=== PATIENT | female | born 1970 | race African-American/Black ===

== ENCOUNTER 2019-10-26 19:34 | Emergency (ER) | payer OTHER, SELFPAY ==
[2019-10-26 19:40] VITALS: BP 98/43; PULSE 81; RESP 18; TEMP 36.1; O2SAT 100
--- NOTE | 2019-10-26 19:42 | ECG_ITS ---
Measurements Intervals [place] Rate: 83 P: 52 RI: 174 QRS: 11 QRSD: 83 T: 31 QT: 352 QTc: 414 Interpretive Statements SINUS RHYTHM BASELINE ARTIFACT- II, III, AVF NORMAL ECG Electronically Signed On 10-27-2019 15:44:40 [employer] by Maynor Quiroz D.O.
--- NOTE | 2019-10-26 19:42 | ED.GENADULT ---
HPI - General Adult General Chief complaint: Unspecified Stated complaint: High blood pressure Time Seen by Provider: 10/26/19 19:42 Source: patient Mode of arrival: ambulatory Limitations: no limitations History of Present Illness HPI narrative: Gay Oconnell is a 49 yo female with a PMH of MARAH, insomnia, who comes to express care for change in voice, chest heaviness and shortness of breath earlier this evening, although appears to be in no distress presently. Patient was at a pharmacy and they recommended she come over here to be evaluated Historically patient looks like she is on multiple anti-psychotic medications Related Data Home Medications Medication Instructions Recorded Confirmed clonazepam 10/26/19 doxepin 10/26/19 suvorexant [Belsomra] mg PO 10/26/19 triazolam 10/26/19 venlafaxine mg PO 10/26/19 Allergies Allergy/AdvReac Type Severity Reaction Status Date / Time No Known Allergies Allergy Unverified 12/11/17 18:06 Review of Systems Review of Systems: Narrative: CONSTITUTIONAL: Denies fever, chills, sweats. EYES: Denies visual changes, redness, discharge. ENT: Denies rhinorrhea, congestion, sore throat, otalgia. Change in voice CARDIOVASCULAR: Denies chest pain, palpitations, edema. RESPIRATORY: Denies dyspnea, wheezing, cough GASTROINTESTINAL: Denies abdominal pain, nausea, vomiting, diarrhea. GENITOURINARY: Denies dysuria, hematuria, abnormal discharge SKIN: Denies rash or itching. MUSCULOSKELETAL: Denies acute back pain, joint pain, or myalgia. NEUROLOGIC: Denies numbness, or focal weakness. PSYCHIATRIC: Has anxiety,no depression. Complaining of being under a lot of stress PMFSH Social History Social History (Updated 10/26/19 @ 19:47 by Taylor Andrews CNP) Smoking status: Current every day smoker Living arrangements: with family Exam Narrative: Exam Narrative: GENERAL: This is a well-nourished, well-developed patient, vague complaints HEAD: normocephalic, atraumatic. EYES: Mild remission sclera clear/white. Vision is grossly intact. EARS: External ears normal, auditory canals clear and without drainage, TMs normal without perforation. Hearing grossly intact. NOSE: External nose normal with no obvious nasal discharge, nares without redness, no rhinorrhea. THROAT: Mucous membranes moist, posterior pharynx clear. Voice is high-pitched- stressed out this t non-Neck: tender without lymphadenopathy, masses or thyromegaly. CARDIOVASCULAR: Regular rate and rhythm without murmurs, gallops, or rubs. RESPIRATORY: Clear to auscultation. Breath sounds equal bilaterally. No wheezes, rales, or rhonchi. GASTROINTESTINAL: Abdomen soft, non-tender, nondistended. SKIN: warm, intact with no suspicious lesions or rash, good texture and turgor. NEURO: awake, alert, and oriented to person, place and time. There were no obvious focal neurologic abnormalities. Steady gait Grossly negative cranial nerves, 5/5 strength all extrenities, good coordination on rapid finger movement EXTREMITIES: Normal range of motion. No edema. BACK: Nontender without deformity or crepitance. Course Course Emergency Course: EKG: Heart rate 83, no axis deviation, NSR Recheck of BP- 157/104- pt angry asked about psych meds Discussed options with pt - pt upset , normal neuro exam- if symptoms recur, to go to ER - follow up with pcp in AM Pt left prior to receiving discharge papers, upset about discussion on psych meds and her voice change- left with sister Vital Signs Vital signs: Vital Signs Temperature 97.0 F L 10/26/19 19:40 Pulse Rate 81 10/26/19 19:40 Respiratory Rate 18 10/26/19 19:40 Blood Pressure 98/43 L 10/26/19 19:40 Pulse Oximetry 100 10/26/19 19:40 Temperature 97.0 F L 10/26/19 19:40 Pulse Rate 81 10/26/19 19:40 Respiratory Rate 18 10/26/19 19:40 Blood Pressure 98/43 L 10/26/19 19:40 Pulse Oximetry 100 10/26/19 19:40 Medical Decision Making Differential
[2019-10-26 19:55] VITALS: BP 157/104; RESP 18; O2SAT 100
== END 2019-10-26 19:55 | disposition home or self-care (01) ==
PROVIDERS: Emergency Provider Nurse Practitioner
DX: F41.9 Anxiety disorder, unspecified (principal); G47.33 Obstructive sleep apnea (adult) (pediatric)
CPT/HCPCS: 93005; 99213; G0463

== ENCOUNTER 2020-01-16 14:56 | Emergency (ER) | payer OTHER, MEDICAID, SELFPAY ==
[2020-01-16 15:03] VITALS: BP 146/97; PULSE 98; RESP 20; TEMP 36.7; O2SAT 100
--- NOTE | 2020-01-16 15:30 | ED.ANXIETY ---
HPI - Anxiety General Chief Complaint: Anxiety Stated Complaint: Haven't slept since june, anxiety Time Seen by Provider: 01/16/20 14:57 Source: patient and family Mode of arrival: ambulatory Limitations: no limitations History of Present Illness HPI narrative: Patient is a 49-year-old female who presents to emergency department noting that she suffers from chronic insomnia and that her medications have not been working has seen a sleep specialist at [facility] and primary care. Patient is scheduled to see neurology at [facility] in February. Patient presents with her son noting history of chronic insomnia patient notes that she is taking melatonin and other medications for insomnia with no improvement with minimal sleep off and on over the last several months. Patient denies any suicidal homicidal ideation. On arrival patient denies any pain or recent illness Related Data Home Medications Medication Instructions Recorded Confirmed clonazepam 10/26/19 doxepin 10/26/19 suvorexant [Belsomra] mg PO 10/26/19 triazolam 10/26/19 venlafaxine mg PO 10/26/19 Allergies Allergy/AdvReac Type Severity Reaction Status Date / Time No Known Allergies Allergy Verified 01/16/20 15:12 Review of Systems Review of Systems: All systems reviewed & are unremarkable except as noted in HPI and below PMFSH Past Medical History Medical History (Updated 01/16/20 @ 18:02 by Miguel Us PA-C) Anxiety Insomnia MARAH (obstructive sleep apnea) Social History Social History Smoking status: Current every day smoker Gender identity (if verbalized by the patient): Female Exam Narrative: Exam Narrative: GENERAL: Well-appearing, well-nourished, and in no acute distress. HEAD: Normocephalic, atraumatic. EYES: PERRLA and EOMI. ENT: Nares clear, no rhinorrhea or epistaxis. Mucous membranes moist. CHEST: Clear to auscultation. No respiratory distress. No wheezes rales or rhonchi HEART: Regular rate and rhythm. No murmur heard. EXTREMITIES: Normal range of motion. No edema. SKIN: Warm, dry, no rash. NEURO: No focal deficits. Alert and oriented x3. Cranial nerves II through XII grossly intact PSYCH: Patient acutely anxious Course Course Emergency Course: Patient in the room at this time felt better after Ativan and will follow with primary care is aware of discussions with primary care. Consultations Consultation #1: Discussed case with primary care on 2 occasions who will follow the patient is okay with the patient having a few doses of Ativan to go home with and will follow patient in clinic Date: 01/16/20 Time: 18:00 Vital Signs Vital signs: Vital Signs Temperature 98.1 F 01/16/20 15:03 Pulse Rate 98 01/16/20 15:03 Respiratory Rate 20 01/16/20 15:03 Blood Pressure 146/97 H 01/16/20 15:03 Pulse Oximetry 100 01/16/20 15:03 Temperature 98.1 F 01/16/20 15:03 Pulse Rate 98 01/16/20 15:03 Respiratory Rate 20 01/16/20 15:03 Blood Pressure 146/97 H 01/16/20 15:03 Pulse Oximetry 100 01/16/20 15:03 MDM - Anxiety MDM Narrative Medical decision making narrative: Patient with longstanding history of schizophrenia and medication noncompliance family and patient were offered psych evaluation by crisis but have refused. Patient is in the room in no distress with no high risk changes in the blood work was given Ativan and fluids in the emergency department will be discharged home with family who is comfortable with the patient and will continue to follow with their referrals. Patient provided with reasons to return as well and noted improvement with medication Lab Data Result diagrams: 01/16/20 15:29 01/16/20 15:29 Labs: Lab Results 01/16/20 01/16/20 01/16/20 Range/Units 15:29 15:29 15:29 WBC 7.8 (4.5-10.0) K/mm3 RBC 4.58 (4.2-5.4) M/mm3 Hgb 13.3 (12.0-15.0) g/dL Hct 39.3 (37.0-4
[2020-01-16 15:36] LABS: Basophils Percent Auto 0.1 % (0.2-1.2); Eosinophils Absolute Auto 0.1 K/mm3 (0-0.3); Eosinophils Percent Auto 0.6 % (0-4.4); Hematocrit 39.3 % (37.0-47.0); Hemoglobin 13.3 g/dL (12.0-15.0); Immature Granulocyte Absolute 0.01 K/mm3 (0.00-0.031); Immature Granulocyte Percent A 0.1 % (0-0.5); Lymphocytes Absolute Auto 2.49 K/mm3 (0.9-3.2); Mean Corpuscular HGB Conc 33.8 g/dl (32-36); Mean Corpuscular Volume 85.8 fl (80-100); Mean Platelet Volume 8.9 fl (7.4-10.4); Monocytes Absolute Auto 0.6 K/mm3 (0.1-0.6); Monocytes Percent Auto 7.4 % (2.6-8.5); Neutrophils Absolute Auto 4.7 K/mm3 (1.3-6.7); Neutrophils Percent Auto 59.8 % (45.5-73.1); Platelet Count Result 268 k/mm3 (150-375); Red Blood Count 4.58 M/mm3 (4.2-5.4); Red Cell Distribution Width 13.1 % (11.5-14.5); White Blood Count 7.8 K/mm3 (4.5-10.0)
[2020-01-16] MEDS: SODIUM CHLORIDE 0.9% IV 1,000 ML 999 ML IV CONT (15:43)
[2020-01-16] MEDS: LORAZEPAM INJ 2 MG/ML VIAL 1 MG IV PUSH (15:44)
[2020-01-16 15:48] LABS: Blood Urea Nitrogen 7 mg/dL (7-17); Calcium 9.8 mg/dL (8.4-10.2); Carbon Dioxide 26 mmol/L (22-30); Chloride 106 mmol/L (98-107); Estimated CRCL calculation 79 ml/min; Estimated Glomerular Filt Rate > 60; Glucose 108 mg/dL (65-105); Potassium 3.9 mmol/L (3.4-5.0); Sodium 142 mmol/L (137-145)
--- NOTE | 2020-01-16 15:59 | PC.NURSE ---
added on labs at 1553
[2020-01-16 16:10] LABS: Ethanol < 10 mg/dL (<10)
[2020-01-16 16:12] LABS: Amphetamine Screen Urine Negative (Negative); Barbiturate Screen Urine Negative (Negative); Benzodiazepines Screen Urine Negative (Negative); Cannabinoid Screen Urine Negative (Negative); Cocaine Screen Urine Negative (Negative); Methadone Screen Urine Negative (Negative); Opiate Screen Urine Negative (Negative); Phencyclidine Screen Urine Negative (Negative)
[2020-01-16 16:59] LABS: Add Urine Microscopic? YES; Appearance Urine Cloudy (Clear); Bacteria Urine 4+ /hpf; Bilirubin Urine 2+ (Negative); Blood Urine Negative (Negative); Color Urine Yellow (Yellow); Glucose Urine UA Negative (Negative); Ketones Urine Trace mg/dL (Negative); Leukocyte Esterase Ur Trace LEU/UL (Negative); Mucus Urine Heavy /lpf; Nitrate Urine Negative (Negative); Protein Urine 1+ mg/dL (Negative); Specific Grav Ur 1.025 (1.001-1.035); Squamous Epithelial Cell Urine Many /hpf (Few)
[2020-01-16 18:12] VITALS: BP 118/75; PULSE 78; RESP 18; O2SAT 100
== END 2020-01-16 18:13 | disposition home or self-care (01) ==
PROVIDERS: Emergency Medicine Emergency Medical Services; Emergency Provider Emergency Medicine; PCP Nurse Practitioner Family
DX: G47.00 Insomnia, unspecified (principal); G47.33 Obstructive sleep apnea (adult) (pediatric); F17.200 Nicotine dependence, unspecified, uncomplicated; F20.9 Schizophrenia, unspecified; Z91.14 Patient's other noncompliance with medication regimen
CPT/HCPCS: 36415; 80048; 80307; 81001; 84443; 85025; 87086; 96361; 96374; 99284; J2060; J7030

== ENCOUNTER 2020-07-15 06:35 | Outpatient (CLI) | payer OTHER, SELFPAY ==
--- NOTE | 2020-07-15 11:30 | WPDNEUROLOGY ---
Neurology EEG Report General Information Date of Study: 07/15/20 TEST eeg DIAGNOSIS chronic insomnia CONDITION OF RECORDING awake and drowsy EEG NUMBER [id number] CLINICAL HISTORY patient reported that she has chronic insomnia going on since 2011. EEG DESCRIPTION Basic resting occipital frequency consists of low to medium voltage 8 to 9 hertz per second alpha admixed with low-voltage 15 to 18 hertz per second beta beta. During drowsiness low-voltage beta activity seen diffusely admixed with waxing and waning posterior alpha rhythm .intermittent muscle artifactsare seen throughout the tracing , no sleep activity seen. non paroxysmal. nonfocal nonlateralizing. IMPRESSION no significant abnormalities noted
== END 2020-07-15 06:36 | disposition home or self-care (01) ==
PROVIDERS: PCP Family Medicine; Visit Provider Family Medicine
DX: F51.04 Psychophysiologic insomnia (principal)
CPT/HCPCS: 95816

== ENCOUNTER 2020-09-03 06:56 | Outpatient (NON) | payer OTHER, SELFPAY ==
[2020-09-03 18:19] LABS: SARS-CoV-2 RNA PCR Negative
== END 2020-09-03 06:57 ==
LOC: ANHCOVIDDT 07:07
PROVIDERS: PCP Family Medicine; Visit Provider Family Medicine
DX: R68.89 Other general symptoms and signs (principal); Z20.828 Contact with and (suspected) exposure to other viral communicable diseases
CPT/HCPCS: 87635; C9803; U0003

== ENCOUNTER 2021-01-10 14:20 | Emergency (ER) | payer OTHER, SELFPAY ==
[2021-01-10 14:25] VITALS: BP 138/84; PULSE 69; RESP 20; TEMP 36.5; O2SAT 100
--- NOTE | 2021-01-10 15:34 | ED.GENADULT ---
HPI - General Adult General Chief complaint: Unspecified Stated complaint: blurred vision, tingling to hands, and swelling an Time Seen by Provider: 01/10/21 15:34 History of Present Illness HPI narrative: 50 yo female w/ h/o neuropathy of the lower extremities presents with leg pain. She repoorts that she was diagnosed with neuropathy 2 years ago. She has recently had worsening of her symptoms. In addition she says that she now has tingling in her hands bilaterally. She called her PCP and they were not able to get her in. They told her to come get checked for diabetes. No fever, chills, nausea, vomiting, polyuria. Glucose is 87. Related Data Home Medications Medication Instructions Recorded Confirmed clonazepam 10/26/19 doxepin 10/26/19 suvorexant [Belsomra] mg PO 10/26/19 triazolam 10/26/19 venlafaxine mg PO 10/26/19 Allergies Allergy/AdvReac Type Severity Reaction Status Date / Time No Known Allergies Allergy Verified 01/16/20 15:12 Review of Systems Review of Systems: All systems reviewed & are unremarkable except as noted in HPI and below Constitutional: Constitutional: Denies chills and Denies fever(s) Eyes: Eyes: Reports blurry vision ENT: Reports system reviewed and no additional complaints, except as documented Cardiovascular: Cardiovascular: Denies chest pain Respiratory: Respiratory: Denies dyspnea Gastrointestinal: Gastrointestinal: Denies abdominal pain and Denies nausea Genitourinary: Genitourinary: Reports as per HPI Neurologic: Reports as per HPI [facility] Past Medical History Medical History Anxiety Insomnia MARAH (obstructive sleep apnea) Social History Social History Smoking status: Current every day smoker Gender identity (if verbalized by the patient): Female Exam Const: General: healthy appearing, no acute distress and alert Orientation/consciousness: patient oriented x3 HENMT: Head: normal to inspection Neck: Neck: normal visual inspection and no lymphadenopathy Resp: Effort & Inspection: normal respiratory effort Auscultation: clear to auscultation bilaterally, no rales, no rhonchi and no wheezes Cardio: Jugular venous distension: no JVD Rate: regular rate Rhythm: regular rhythm Heart sounds: no murmurs GI: Inspection: non-distended GI Palp: Yes Soft to palpation and No Tenderness to palpation present (GI) Skin: General skin exam: normal color Neuro: General: patient oriented x3 and moves all extremities Speech: normal speech Sensory Exam: Abnormal lower extremity sensory exam (reports pins and needle sensation bilaterally. ) Extrem: General: normal to inspection and no edema Psych: Appearance: well kempt Affect: normal affect Course Vital Signs Vital signs: Vital Signs Temperature 36.5 C 01/10/21 14:25 Pulse Rate 69 01/10/21 14:25 Respiratory Rate 20 01/10/21 14:25 Blood Pressure 138/84 01/10/21 14:25 Pulse Oximetry 100 01/10/21 14:25 Temperature 36.5 C 01/10/21 14:25 Pulse Rate 72 01/10/21 18:09 Respiratory Rate 16 01/10/21 18:09 Blood Pressure 118/75 01/10/21 18:09 Pulse Oximetry 99 01/10/21 18:09 Medical Decision Making [facility] Narrative Medical decision making narrative: Her normal glucose all but rules out diabetes as a possibility. B12 level normal. No objective findings on exam. Symptoms are nonfocal. She will likely need an outpatient nerve conduction study to comfirm the diagnosis and further look for possible causes. Differential Diagnosis Differential Diagnosis: DDx: neuropathy, DM, B12 deficiency, other Medical Records Medical records reviewed: Yes I reviewed the external patient's medical records. Vital Signs Vital Signs: Vital Signs Temperature 36.5 C 01/10/21 14:25 Pulse Rate 69 01/10/21 14:25 Respiratory Rate 20 01/10/21 14:25 Blood Pressure 138/84 01/10/21
--- NOTE | 2021-01-10 15:38 | PC.NURSE ---
Arrives via triage, x1 day worsening neuropathy can hardly walk , +LLE +1 pitting edema (denies trauma, denies hx blood clots, denies SOB). Has been on meloxicam x1 year for neuropathy , unsure if she is diabetic. Called per PCP today who recommended coming to ED for eval. Also c/o headaches and blurred vision
[2021-01-10 15:45] LABS: Glucose Point of Care 87 (65-105)
--- NOTE | 2021-01-10 16:09 | PC.NURSE ---
Pt ambulated steady gait to BR, slight limp noted on L side
[2021-01-10 16:38] LABS: Basophils Percent Auto 0.2 % (0.2-1.2); Eosinophils Absolute Auto 0.1 K/mm3 (0-0.3); Hematocrit 34.1 % (37.0-47.0); Hemoglobin 11.3 g/dL (12.0-15.0); Immature Granulocyte Absolute 0.01 K/mm3 (0.00-0.031); Immature Granulocyte Percent A 0.2 % (0-0.5); Lymphocytes Absolute Auto 2.06 K/mm3 (0.9-3.2); Mean Corpuscular HGB Conc 33.1 g/dl (32-36); Mean Corpuscular Hemoglobin 28.9 pg (26-34); Mean Corpuscular Volume 87.2 fl (80-100); Mean Platelet Volume 9.1 fl (7.4-10.4); Monocytes Absolute Auto 0.4 K/mm3 (0.1-0.6); Monocytes Percent Auto 8.2 % (2.6-8.5); Neutrophils Absolute Auto 2.4 K/mm3 (1.3-6.7); Neutrophils Percent Auto 48.4 % (45.5-73.1); Platelet Count Result 201 k/mm3 (150-375); Red Blood Count 3.91 M/mm3 (4.2-5.4); Red Cell Distribution Width 12.6 % (11.5-14.5)
[2021-01-10] MEDS: KETOROLAC (*BKC) 60 MG/2 ML VIAL IM (16:43)
[2021-01-10 16:50] LABS: Anion Gap 4 mmol/L (8-16); Blood Urea Nitrogen 15 mg/dL (7-17); Calcium 9.1 mg/dL (8.4-10.2); Carbon Dioxide 32 mmol/L (22-30); Chloride 104 mmol/L (98-107); Estimated CRCL calculation 72 ml/min; Estimated Glomerular Filt Rate > 60; Glucose 88 mg/dL (65-105); Potassium 4.4 mmol/L (3.4-5.0); Sodium 140 mmol/L (137-145)
[2021-01-10 17:55] LABS: Folic Acid 11.8 ng/mL (2.76->20)
[2021-01-10 18:09] VITALS: BP 118/75; PULSE 72; RESP 16; O2SAT 99
== END 2021-01-10 18:10 | disposition home or self-care (01) ==
PROVIDERS: Emergency Provider Emergency Medicine; PCP Family Medicine
DX: G62.9 Polyneuropathy, unspecified (principal); F41.9 Anxiety disorder, unspecified; G47.33 Obstructive sleep apnea (adult) (pediatric); F17.200 Nicotine dependence, unspecified, uncomplicated
CPT/HCPCS: 36415; 80048; 82607; 82746; 82948; 85025; 96372; 99283; J1885

== ENCOUNTER → 2021-02-05 06:44 | Outpatient (CLI) | payer OTHER, SELFPAY ==
[2021-02-06 17:40] LABS: SARS-CoV-2 RNA PCR Negative
== END ==
PROVIDERS: PCP Family Medicine; Visit Provider Family Medicine
DX: R68.89 Other general symptoms and signs (principal); Z20.822 Contact with and (suspected) exposure to COVID-19
CPT/HCPCS: C9803; U0003; U0005

== ENCOUNTER 2023-06-28 01:50 | Day surgery (SDC) | payer OTHER, SELFPAY ==
[2023-06-16 12:44] VITALS: BMI 40.6
[2023-06-28 10:18] VITALS: BP 158/86; PULSE 70; RESP 18; TEMP 36.2; O2SAT 100
[2023-06-28] MEDS: LACTATED RINGERS 1,000 ML 150 ML IV CONT (10:31)
--- NOTE | 2023-06-28 10:34 | P.PNAN_ITS ---
Anes - Initial Pre Proc Eval Procedure: Operation Date: 06/28/23 11:30 Proposed Procedures p Screening Colonoscopy - Vivek Stafford MD Date/Time: 06/28/23 10:34 Surgeon: Vivek Stafford MD Pre Op Diagnosis: Neoplasm screening Patient Data Age: 53 Gender: F Height: 1.6 m Weight: 103.4 kg Last Vital Signs Temp 97.1 F L 06/28/23 10:18 Pulse 70 06/28/23 10:18 Resp 18 06/28/23 10:18 BP 158/86 H 06/28/23 10:18 Pulse Ox 100 06/28/23 10:18 O2 Del Method Room Air 06/28/23 10:18 Allergies Allergy/AdvReac Type Severity Reaction Status Date / Time No Known Allergies Allergy Verified 06/28/23 10:15 Home Medications Medication Instructions Recorded Confirmed Type paroxetine HCl 20 mg tablet (Paxil) 20 mg PO DAILY 05/11/23 06/16/23 History zolpidem 10 mg tablet (Ambien) 10 mg PO QHS 05/11/23 06/16/23 History Patient hx anesthesia problems: none Family hx anesthesia problems: none Results Review: All pre-operative results and documents have been reviewed as part of the pre- operative evaluation. REPLACED BY [facility] Past Medical History Medical History (Updated 05/11/23 @ 12:12 by Zayra Vallecillo APN-Mikel) Anxiety Encounter for screening colonoscopy Insomnia Obese MARAH (obstructive sleep apnea) Tobacco abuse Social History Social History Smoking status: Current every day smoker Living arrangements: with family Gender identity (if verbalized by the patient): Female Anes - Eval Final PreProcedure Day of Procedure 06/28/23 10:34 Patient weight: morbidly obese Heart: regular rate and rhythm Lungs: clear to auscultation Airway: Mallampati scale class II Neurological: alert and oriented Last oral intake: >/= 8 hours ASA classification: III Emergent: no Anesthetic plan: proceed Anesthesia type and monitoring: general GIVS and standard monitoring Results Review: All pre-operative results and documents have been reviewed as part of the pre- operative evaluation. Informed Consent: The patient's anesthetic plan and its attendant risks and benefits were discussed with the patient/family/POA. Questions were solicited and answers provided to the satisfaction of the patient/family/POA.
--- NOTE | 2023-06-28 10:34 | PM.HPGS ---
History of Present Illness History of Present Illness Consent: Risks, benefits, and alternatives have been discussed and questions answered. Patient agrees to proceed with procedure. Chief complaint: Neoplasm screening Narrative: Gay Oconnell is a 53 year old female here for first screening colonoscopy Review of Systems Constitutional: Constitutional: Denies headache(s) and Denies weakness Eyes: Eyes: Denies blurry vision ENT: Reports Normal hearing present, Denies headache(s) and Denies neck pain Cardiovascular: Cardiovascular: Denies chest pain and Denies dyspnea Respiratory: Respiratory: Denies dyspnea Gastrointestinal: Gastrointestinal: Reports no additional gastrointestinal complaints Genitourinary: Genitourinary: Denies dysuria Musculoskeletal: Musculoskeletal: Denies neck pain Integumentary/Breasts: Skin/Breast: Denies dry skin Neurologic: Reports Normal hearing present, Denies headache(s) and Denies weakness Psychiatric: Psychiatric: Denies anxiety Endocrine: Endocrine: Denies change in body appearance Hematologic/Lymphatic: Hematologic/Lymphatic: Denies easy bleeding Allergic/Immunologic: Allergic/Immunologic: Denies urticaria PMFSH Past Medical History Medical History (Updated 05/11/23 @ 12:12 by TIMUR FreedmanN-Mikel) Anxiety Encounter for screening colonoscopy Insomnia Obese MARAH (obstructive sleep apnea) Tobacco abuse Social History Social History Smoking status: Current every day smoker Living arrangements: with family Gender identity (if verbalized by the patient): Female Meds Home Medications and Allergies Home Medications Medication Instructions Recorded Confirmed Type paroxetine HCl 20 mg tablet (Paxil) 20 mg PO DAILY 05/11/23 06/16/23 History zolpidem 10 mg tablet (Ambien) 10 mg PO QHS 05/11/23 06/16/23 History Allergies Allergy/AdvReac Type Severity Reaction Status Date / Time No Known Allergies Allergy Verified 06/28/23 10:15 Vital Signs Vital Signs - 24 hr 06/28/23 10:18 Temperature 97.1 F L Pulse Rate 70 Respiratory Rate 18 Blood Pressure 158/86 H Pulse Oximetry 100 Oxygen Delivery Room Air Exam Const: General: comfortable and no acute distress HENMT: Face/Nose/Sinus: Normal nares present Eyes: General: appearance normal, both eyes and all related structures Neck: Neck: no JVD Resp: Auscultation: clear to auscultation bilaterally Cardio: Rate: regular rate Rhythm: regular rhythm GI: Inspection: non-distended GI Palp: Yes Soft to palpation Skin: General skin exam: normal color Neuro: General: gait normal Speech: normal speech Extrem: General: normal to inspection Psych: Mental Status: mental status grossly normal Assessment and Plan Assessment and plan (1) Encounter for screening colonoscopy: Code(s): Z12.11 - Encounter for screening for malignant neoplasm of colon Status: Acute Assessment and Plan: colonoscopy
[2023-06-28 11:03] VITALS: BP 113/75; PULSE 82; RESP 23; O2SAT 100
[2023-06-28 11:13] VITALS: BP 121/75; PULSE 80; RESP 23; O2SAT 100
== END 2023-06-28 11:34 | disposition home or self-care (01) ==
PROVIDERS: Visit Provider Internal Medicine Gastroenterology
PROC: 0DJD8ZZ Inspection of Lower Intestinal Tract, Via Natural or Artificial Opening Endoscopic (ICD-10-PCS; CPT 45378; principal; 2023-06-28 11:30)
DX: Z12.11 Encounter for screening for malignant neoplasm of colon (principal); K63.5 Polyp of colon; G47.33 Obstructive sleep apnea (adult) (pediatric); F41.9 Anxiety disorder, unspecified; F17.200 Nicotine dependence, unspecified, uncomplicated; E66.01 Morbid (severe) obesity due to excess calories; Z68.41 Body mass index [BMI] 40.0-44.9, adult
CPT/HCPCS: 45385; 88305; J2704; J7120

== ENCOUNTER → 2023-10-09 11:13 | Outpatient (CLI) | payer OTHER, SELFPAY ==
--- NOTE | ~2023-10-09 | MM_ITS ---
EXAMINATION: MM screening [facility] BI w mahin HISTORY: Screening TECHNIQUE: Craniocaudal and mediolateral oblique 3-D tomosynthesis images were obtained and synthetic 2-D images were generated. CAD analysis was submitted and interpreted. COMPARISON: No prior mammogram is available for comparison at this institution. BREAST PARENCHYMAL COMPOSITION: There are scattered areas of fibroglandular density. FINDINGS: There is a mass in the upper outer quadrant of the right breast, anterior-mid depth. No [facility] mographic evidence for malignancy in the left breast. IMPRESSION: 1. Right breast mass, upper outer quadrant. 2. Additional mammographic views and possible breast ultrasound are recommended. BI-RADS Category 0: Incomplete: Needs additional imaging evaluation. Reviewed, dictated and finalized at location A. NT STORAGE WORKER IMPRESSION: 1. Right breast mass, upper outer quadrant. 2. Additional mammographic views and possible breast ultrasound are recommended . BI-RADS Category 0: Incomplete: Needs additional imaging evaluation.
== END ==
PROVIDERS: PCP Nurse Practitioner; Visit Provider Nurse Practitioner
DX: Z12.31 Encounter for screening mammogram for malignant neoplasm of breast (principal); R92.8 Other abnormal and inconclusive findings on diagnostic imaging of breast
CPT/HCPCS: 77063; 77067

== ENCOUNTER → 2023-11-08 13:50 | Outpatient (CLI) | payer OTHER, SELFPAY ==
--- NOTE | ~2023-11-08 | MMUS_ITS ---
EXAMINATION: MM diagnostic [facility] RT w mahin, US breast RT limited HISTORY: Follow-up right breast asymmetry TECHNIQUE: Additional 3-D tomosynthesis images of the right breast were performed and synthetic 2-D i mages were generated. CAD analysis was submitted and interpreted. High resolution Limited right breas t ultrasound was performed. COMPARISON: 10/09/2023 BREAST PARENCHYMAL COMPOSITION: Not dense: There are scattered areas of fibroglandular density. FINDINGS: MAMMOGRAPHIC FINDINGS: There is a mass in the upper outer quadrant of the right breast, middle third. There are no suspiciou s calcifications or architectural distortion. ULTRASOUND: Limited right breast ultrasound: At 11:00, 5 cm from the nipple, there is an oval circumscribed paral lel oriented hypoechoic 8mm mass with echogenic hilum, likely benign intramammary lymph node. No inte rnal vascularity or posterior features. IMPRESSION: 1. Probable benign right breast mass at 11:00, 5 cm from the nipple which corresponds to the mammogra phic finding. 2. Recommend 6 month follow-up diagnostic right mammogram and ultrasound BI-RADS category 3, probably benign findings. Reviewed, dictated and finalized at location A. PHYSICAL THERAPIST IMPRESSION: 1. Probable benign right breast mass at 11:00, 5 cm from the nipple which corre sponds to the mammographic finding. 2. Recommend 6 month follow-up diagnostic right mammogram and ultrasound BI-RADS category 3, probably benign findings.
== END ==
PROVIDERS: PCP Nurse Practitioner; Visit Provider Nurse Practitioner
DX: R92.2 Inconclusive mammogram (principal); R92.8 Other abnormal and inconclusive findings on diagnostic imaging of breast
CPT/HCPCS: 76642; 77061; 77065; G0279

== ENCOUNTER 2023-11-11 08:46 | Emergency (ER) | payer OTHER, SELFPAY ==
[2023-11-11 08:59] VITALS: BP 137/84; PULSE 86; RESP 16; TEMP 36.5; O2SAT 100
[2023-11-11] MEDS: IBUPROFEN 600 MG TABLET PO (09:31)
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
== END 2023-11-11 09:38 | disposition home or self-care (01) ==
PROVIDERS: Emergency Provider Nurse Practitioner; PCP Nurse Practitioner Family
DX: F41.9 Anxiety disorder, unspecified (principal); E66.9 Obesity, unspecified; Z68.39 Body mass index [BMI] 39.0-39.9, adult; F17.200 Nicotine dependence, unspecified, uncomplicated
CPT/HCPCS: 99213; A9270; G0463

== ENCOUNTER 2023-11-15 04:11 | Emergency (ER) | payer OTHER, SELFPAY ==
[2023-11-15 04:19] VITALS: BP 120/82; PULSE 104; RESP 16; TEMP 36.6; O2SAT 100
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
--- NOTE | 2023-11-15 04:28 | PC.NURSE ---
While assessing patient, patient states she does not want medical clearance or psychiatric treatment. Patient states she is not homicidal and not suicidal. EDP made aware and patient leaves without being evaluated. Patient is walked to the waiting room without incident. Patient ambulates normally out of the waiting room.
== END 2023-11-15 04:42 | disposition left against medical advice (07) ==
PROVIDERS: Emergency Provider Emergency Medicine; PCP Nurse Practitioner Family
DX: F41.9 Anxiety disorder, unspecified (principal); G47.33 Obstructive sleep apnea (adult) (pediatric); E66.9 Obesity, unspecified; Z68.38 Body mass index [BMI] 38.0-38.9, adult; F17.200 Nicotine dependence, unspecified, uncomplicated
CPT/HCPCS: 99281

== ENCOUNTER 2023-11-22 02:07 | Emergency (ER) | payer OTHER, SELFPAY ==
--- NOTE | ~2023-11-22 | CT_ITS ---
CT of the Abdomen and Pelvis: Indication: Abdominal pain Technique: 2.5 mm axial scans were obtained through the abdomen and pelvis following intravenous adm inistration of 100 cc of Omnipaque 350. Dose reduction technique was used on this scan by utilizing a utomated exposure control and iterative reconstruction technique. The dose-length product (DLP) was 1 145.32 mGy-cm. Findings: Scans through the lung bases are unremarkable. The liver, spleen, pancreas, gallbladder, adrenals and kidneys are within normal limits. No evidence of aortic aneurysm. No lymphadenopathy. No bowel obstruction or bowel wall thickening. There is no evidence to suggest acute appendicitis. Images through the pelvis were performed. Urinary bladder unremarkable. No adnexal mass seen. IUD in place. No ascites. Impression: No significant abnormalities seen. Reviewed, dictated and finalized at [facility]. Impression: No significant abnormalities seen.
[2023-11-22 02:12] VITALS: BP 139/89; PULSE 109; RESP 15; TEMP 36.2; O2SAT 99
[2023-11-22 02:27] VITALS: O2SAT 99
[2023-11-22 02:37] LABS: Appearance Urine Clear (Clear); Bacteria Urine 1+ /hpf; Bilirubin Urine Negative (Negative); Blood Urine Negative (Negative); Color Urine Yellow (Yellow); Glucose Urine UA Negative (Negative); Ketones Urine Trace mg/dL (Negative); Leukocyte Esterase Ur Trace LEU/UL (Negative); Nitrate Urine Negative (Negative); Non Pathogenic Casts 0-2; Protein Urine Trace mg/dL (Negative); RBC Urine 0-2 /hpf (0-2); Specific Grav Ur 1.022 (1.001-1.035); Squamous Epithelial Cell Urine Few /hpf (Few); WBC Urine 0-5 /hpf; pH Urine 6.5 (5.0-9.0)
[2023-11-22 02:50] LABS: Add Urine Microscopic? YES; Amphetamine Screen Urine Negative (Negative); Barbiturate Screen Urine Negative (Negative); Benzodiazepines Screen Urine Negative (Negative); Cannabinoid Screen Urine Negative (Negative); Cocaine Screen Urine Negative (Negative); Methadone Screen Urine Negative (Negative); Opiate Screen Urine Negative (Negative); Phencyclidine Screen Urine Negative (Negative)
[2023-11-22 02:51] LABS: Basophils Percent Auto 0.2 % (0.2-1.2); Eosinophils Absolute Auto 0.1 K/mm3 (0-0.3); Eosinophils Percent Auto 1.1 % (0-4.4); Hematocrit 33.9 % (37.0-47.0); Hemoglobin 10.7 g/dL (12.0-15.0); Immature Granulocyte Absolute 0.03 K/mm3 (0.00-0.031); Immature Granulocyte Percent A 0.3 % (0-0.5); Lymphocytes Absolute Auto 1.94 K/mm3 (0.9-3.2); Lymphocytes Percent Auto 21.7 % (18.3-44.2); Mean Corpuscular HGB Conc 31.6 g/dl (32-36); Mean Corpuscular Hemoglobin 28.5 pg (26-34); Mean Corpuscular Volume 90.4 fl (80-100); Mean Platelet Volume 9.5 fl (7.4-10.4); Monocytes Absolute Auto 0.8 K/mm3 (0.1-0.6); Monocytes Percent Auto 8.7 % (2.6-8.5); Neutrophils Absolute Auto 6.1 K/mm3 (1.3-6.7); Platelet Count Result 199 k/mm3 (150-375); Red Blood Count 3.75 M/mm3 (4.2-5.4)
[2023-11-22 03:06] LABS: Acetaminophen < 10 ug/mL (10-30); Ethanol < 10 mg/dL (<10); Salicylate < 1.0 mg/dL (2-20)
[2023-11-22 03:28] LABS: Influenza A QL RT-PCR Negative (Negative); Influenza B QL RT-PCR Negative (Negative); RSV RNA, RT-PCR Negative (Negative); SARS-CoV-2 RNA PCR Negative (Negative)
--- NOTE | 2023-11-22 03:51 | ED.GENADULT ---
HPI - General Adult General Chief complaint: Unspecified Stated complaint: 9 weeks , cramps Time Seen by Provider: 11/22/23 02:30 History of Present Illness HPI narrative: Patient is a 53-year-old female who presents emergency department with chief complaint of I am . Patient states that she is about 9 weeks and has been losing a lot of fluid. Patient states that she has an IUD for 20 years and has not had a period about 20 years the patient states that she is not suicidal or homicidal the patient states that she is not having any rectal bleeding denies trauma Related Data Home Medications Medication Instructions Recorded Confirmed paroxetine HCl 20 mg tablet (Paxil) 20 mg PO DAILY 05/11/23 11/11/23 zolpidem 10 mg tablet (Ambien) 10 mg PO QHS 05/11/23 11/11/23 Allergies Allergy/AdvReac Type Severity Reaction Status Date / Time No Known Allergies Allergy Verified 11/11/23 09:12 Review of Systems Review of Systems: A 10 system review of systems was completed on the patient and is negative except for what is stated in the HPI. Nursing and ancillary documentation was reviewed. [facility] Past Medical History Medical History Anxiety Encounter for screening colonoscopy Insomnia Obese MARAH (obstructive sleep apnea) Tobacco abuse Social History Social History Smoking status: Current every day smoker Substance use type: prescription drug Living arrangements: with family Gender identity (if verbalized by the patient): Female Exam Narrative: GENERAL: Well-appearing, well-nourished, and in no acute distress. HEAD: Normocephalic, atraumatic. EYES: PERRLA and EOMI. ENT: Nares clear, no rhinorrhea or epistaxis. Mucous membranes moist. NECK: Supple. CHEST: Clear to auscultation. No respiratory distress. HEART: Regular rate and rhythm. No murmur heard. Normal peripheral pulses. ABDOMEN: Soft, nontender, nondistended, normal active bowel sounds. EXTREMITIES: Normal range of motion. No edema. SKIN: Warm, dry, no rash. NEURO: No focal deficits. Alert and oriented x3. PSYCH: Unusual mood and affect appears to be talking in circles Course Vital Signs Vital signs: Vital Signs Temperature 36.2 C L 11/22/23 02:12 Pulse Rate 109 H 11/22/23 02:12 Respiratory Rate 15 11/22/23 02:12 Blood Pressure 139/89 11/22/23 02:12 Pulse Oximetry 99 11/22/23 02:12 Oxygen Delivery Room Air 11/22/23 02:12 Temperature 36.4 C 11/22/23 05:01 Pulse Rate 91 11/22/23 05:01 Respiratory Rate 20 11/22/23 05:01 Blood Pressure 132/85 11/22/23 05:01 Pulse Oximetry 100 11/22/23 05:01 Oxygen Delivery Room Air 11/22/23 02:12 Medical Decision Making MDM Narrative Medical decision making narrative: Differential diagnosis includes psychosis, abdominal pain, diverticulitis, UTI, The patient underwent a bedside test that was negative this was explained to the patient who did not completely a blue believe that the test was negative a serum HCG was negative this was explained to patient. The patient still concerned that she may be her electrolytes were otherwise within normal limits due to the patient having discomfort in her abdomen a CT scan of the abdomen pelvis was obtained that showed no evidence of acute abnormalities. The patient should follow-up with her primary care provider Vital Signs Vital Signs: Vital Signs Temperature 36.2 C L 11/22/23 02:12 Pulse Rate 109 H 11/22/23 02:12 Respiratory Rate 15 11/22/23 02:12 Blood Pressure 139/89 11/22/23 02:12 Pulse Oximetry 99 11/22/23 02:12 Oxygen Delivery Room Air 11/22/23 02:12 Temperature 36.4 C 11/22/23 05:01 Pulse Rate 91 11/22/23 05:01 Respiratory Rate 20 11/22/23 05:01 Blood Pressure 132/85 11/22/23 05:01 Pulse Oximetry 100 0
[2023-11-22 04:26] LABS: SPREG INTERNAL CONTROL Positive; Serum Qual hCG Negative
[2023-11-22 04:54] LABS: Alanine Aminotransferase 20 U/L (6-35); Albumin Level 4.2 g/dL (3.5-5.1); Alkaline Phosphatase 87 U/L (38-126); Anion Gap 5 mmol/L (8-16); Aspartate Amino Transferase 30 U/L (14-36); Bilirubin,Total 0.2 mg/dL (0.2-1.3); Blood Urea Nitrogen 15 mg/dL (7-17); Calcium 9.2 mg/dL (8.4-10.2); Carbon Dioxide 29 mmol/L (22-30); Chloride 103 mmol/L (98-107); Estimated Glomerular Filt Rate > 60; Glucose 103 mg/dL (65-110); Potassium 3.9 mmol/L (3.4-5.0); Sodium 137 mmol/L (137-145)
[2023-11-22 04:55] LABS: Estimated Glomerular Filt Rate > 60
[2023-11-22 05:01] VITALS: BP 132/85; PULSE 91; RESP 20; TEMP 36.4; O2SAT 100
== END 2023-11-22 06:25 | disposition home or self-care (01) ==
PROVIDERS: Emergency Provider Emergency Medicine; PCP Nurse Practitioner Family
DX: R10.9 Unspecified abdominal pain (principal); G47.33 Obstructive sleep apnea (adult) (pediatric); E66.9 Obesity, unspecified; F17.200 Nicotine dependence, unspecified, uncomplicated; F41.9 Anxiety disorder, unspecified
CPT/HCPCS: 36415; 74177; 80053; 80307; 81001; 81025; 84443; 84703; 85025; 87637; 99284; Q9967

== ENCOUNTER 2023-11-26 15:46 | Emergency (ER) | payer OTHER, SELFPAY ==
--- NOTE | 2023-11-26 15:53 | PC.NURSE ---
Pt declined to be seen, states she has medicine for anxiety and decided she does not want an eval. Son w/ pt. Pt denies SI/HI. Pts son ambulated out w/ patient in NAD. This RN informed pt we can see/eval/treat her anxiety symptoms should she decide to be seen. Pt again declines at this time. A&Ox4. Not triaged.
== END 2023-11-26 15:53 | disposition left against medical advice (07) ==
PROVIDERS: PCP Nurse Practitioner Family
DX: Z53.21 Procedure and treatment not carried out due to patient leaving prior to being seen by health care provider (principal)
CPT/HCPCS: 99199

== ENCOUNTER 2023-11-27 05:21 | Emergency (ER) | payer OTHER, SELFPAY ==
[2023-11-27 05:23] VITALS: BP 156/99; PULSE 92; RESP 15; TEMP 36.6; O2SAT 100
--- NOTE | 2023-11-27 05:42 | PC.NURSE ---
PT REPORTS SHE FORGOT TO URINATE IN URINE CUP WHILE IN BATHROOM.
--- NOTE | 2023-11-27 06:00 | ED_ITS ---
Patient left without being seen, note created by mistake. HPI - General Adult General Chief complaint: Unspecified Stated complaint: , cramping, I think I'm having a misscarr Time Seen by Provider: 11/27/23 05:49 Related Data Home Medications Medication Instructions Recorded Confirmed paroxetine HCl 20 mg tablet (Paxil) 20 mg PO DAILY 05/11/23 11/11/23 zolpidem 10 mg tablet (Ambien) 10 mg PO QHS 05/11/23 11/11/23 Allergies Allergy/AdvReac Type Severity Reaction Status Date / Time No Known Allergies Allergy Verified 11/27/23 05:43 [facility] Past Medical History Medical History Anxiety Encounter for screening colonoscopy Insomnia Obese MARAH (obstructive sleep apnea) Tobacco abuse Social History Social History Smoking status: Current every day smoker Substance use type: prescription drug Living arrangements: with family Gender identity (if verbalized by the patient): Female Course Vital Signs Vital signs: Vital Signs Temperature 97.9 F 11/27/23 05:23 Pulse Rate 92 11/27/23 05:23 Respiratory Rate 15 11/27/23 05:23 Blood Pressure 156/99 H 11/27/23 05:23 Pulse Oximetry 100 11/27/23 05:23 Oxygen Delivery Room Air 11/27/23 05:23 Temperature 97.9 F 11/27/23 05:23 Pulse Rate 92 11/27/23 05:23 Respiratory Rate 15 11/27/23 05:23 Blood Pressure 156/99 H 11/27/23 05:23 Pulse Oximetry 100 11/27/23 05:23 Oxygen Delivery Room Air 11/27/23 05:23 Medical Decision Making Vital Signs Vital Signs: Vital Signs Temperature 97.9 F 11/27/23 05:23 Pulse Rate 92 11/27/23 05:23 Respiratory Rate 15 11/27/23 05:23 Blood Pressure 156/99 H 11/27/23 05:23 Pulse Oximetry 100 11/27/23 05:23 Oxygen Delivery Room Air 11/27/23 05:23 Temperature 97.9 F 11/27/23 05:23 Pulse Rate 92 11/27/23 05:23 Respiratory Rate 15 11/27/23 05:23 Blood Pressure 156/99 H 11/27/23 05:23 Pulse Oximetry 100 11/27/23 05:23 Oxygen Delivery Room Air 11/27/23 05:23 Discharge Plan Discharge Prescriptions: No Action ibuprofen 600 mg tablet 600 mg PO TID PRN (Reason: pain) Qty: 30 0RF hydroxyzine HCl 25 mg tablet 25 mg PO QID PRN (Reason: anxiety) Qty: 20 0RF zolpidem [Ambien] 10 mg tablet 10 mg PO QHS paroxetine HCl [Paxil] 20 mg tablet 20 mg PO DAILY Follow-up/Referrals: Tania,Alize Bowser APRN [Primary Care Provider] -
--- NOTE | 2023-11-27 06:00 | PC.NURSE ---
Pt found wandering hallway, stating she said I could go to the waiting room . This RN explained to pt that if she wanted to be seen by a provider, she would have to stay in her room. Pt then states dont come at me like that. youre in my personal space . Pt then asked for a urine sample cup and was seen going towards restroom. This RN entered room to collect urine sample after pt was finished and pt became agitated, stating I dont want her, get me someone else . historical records administrator notified.
== END 2023-11-27 06:00 | disposition left against medical advice (07) ==
PROVIDERS: PCP Nurse Practitioner Family
DX: R20.2 Paresthesia of skin (principal)
CPT/HCPCS: 99199

== ENCOUNTER 2024-12-28 07:03 | Emergency (ER) | payer BC, SELFPAY ==
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
--- OUTSIDE RECORDS SUMMARY | 2024-12-28 07:05 | XMS_ITS | Continuity of Care Document ---
Author Organization [facility] Address [address] [place] [address] Phone Care Team Providers Care Dental Sales Representative Name Role Phone Krzysztof Da Silva PA-C Unavailable Unavailable Medications Medication Instructions Dosage Effective Dates (start - stop) Status Comments Mobic 15 mg tablet take 1 tablet (15MG) by oral route every day - Active Procedures Procedure Date Office consultation, moderate 2 Garment, Belt, Sleeve Or Other Covering, Elastic O Advance Directives Directive Yes / No Effective Date File Name No Information Encounters Encounter Description Practice Location Reason(s) For Visit Diagnoses Date Provider Providers Copied on Encounter Office consultation, moderate [facility], [address] [place] [address], [id number], tel:[phone] [place] [facility] No Information 2 Rekha Blankenship. [address] [place], [place], [id number] , . tel:[phone] [facility], [address] [place] [address], [id number], tel:[phone] [facility] No Information 2 Rekha Blankenship. [address], [place], [id number] , . tel:[phone] Referring Provider: Krzysztof Hunt, [address] [place] [address], [id number] . tel:[phone] Family History Family Member Type Diagnosis Age At Onset No Information Payers Payer name Insurance type Covered libertarian ID Authormichaela ruiz(s) [employer] CI [id number] Social History Type Description Quantity Date Captured Comments Sex Female Smoking Status No Information Chief Complaint And Reason For Visit No Information Reason For Referral Reason For Referral No Information History Of Present Illness Encounter Date Complaint History Of Prese nt Illness No Information Functional Status Date Functional Assessmen t No Information Instructions Date Instruction Additional Infor mation No Information Assessments Type Assessment Date No Information Patient Care Teams Name Effective Dates (start - stop) Status Members No Information
--- OUTSIDE RECORDS SUMMARY | 2024-12-28 07:05 | XMS_ITS | Continuity of Care Document ---
Author Organization [facility] Address [address] [place] [address] Phone Care Team Providers Care Fire Lieutenant Marine Name Role Phone Unavailable Unavailable Unavailable Allergies, Adverse Reactions, Alerts Substance Reaction Status Criticality No Known Allergies Active No Inform ation Medications Medication Instructions Dosage Effective Dates (start - stop) Status Comments venlafaxine ER 150 mg tablet,extended release 24 hr take 1 tablet by oral route every day in the morning at the same time each day with food 150 MG - Active Vistaril 25 mg capsule take 1 capsule by oral route every day 25 MG - Active Patient may take one to two tablets at bedtime Mirena 20 mcg/24 hr (5 years) intrauterine device - Active Procedures Procedure Date OFFICE/OUTPATIENT VISIT, NEW Advance Directives Directive Yes / No Effective Date File Name No Information Encounters Encounter Description Practice Location Reason(s) For Visit Diagnoses Date Provider Providers Copied on Encounter [facility], [address], [place], [place], [id number] , [place] tel: [phone] [facility] No Information 7 No Information OFFICE/OUTPA TIENT VISIT, NEW [facility], [address], [place], [place], [id number] , [place] tel: [phone] [facility] ear (chief complaint) insomnia (chief complaint) Impacted cerumen, bilateralMonopolar depressionAnxietyI nsomniaEncounter for general adult medical examination with abnormal findings No Information Family History Family Member Type Diagnosis Age At Onset Maternal grandmother Problem (finding) cancer of colon (Cause Of ) 88 Paternal grandmother Problem (finding) Paget Disease ( Cause Of ) Maternal grandmother Problem (finding) 88 Paternal grandmother Problem (finding) diabetes mellit us type 2 Paternal grandmother Problem (finding) Maternal grandmother Problem (finding) diabetes mellit us type 2 89 Payers Payer name Insurance type Covered green party ID Praveen melchor(s) [facility] CI [id number] Social History Type Description Quantity Date Captured Comments Alcohol Use Details Unknown Caffeine Use Details Unknown Tobacco Use Status No Information Smoking Status No Information Sex Female Chief Complaint And Reason For Visit No Information Reason For Referral Reason For Referral No Information Plan Of Treatment Date Type Action Status Referral Referred To: [facility] Ordered: Referrals: Behavioral Health. [facility]. Evaluate and treat Appointment date/timeframe: 1 Week ordered History Of Present Illness Encounter Date Complaint History Of Prese nt Illness insomnia The symptoms beg an 5 years ago. She was treated about 2 years ago with Ambien and didn't help much. She has had PTSD since she was a child. She began having more difficulty sleeping with she broke up with her boyfriend in 2011, found out he had given her Herpes. She doesn't take medication for this. She is no longer in a relationship, enjoys being around her two adult children. She has anxiety attacks, couldn't talk for months. She has one or two cups of coffee in the morning. She has tried Unisom, melatonin. Effexor helps with the anxiety and depression. She sleeps about 3 to 4 hours per 24 hours. ear The symptoms beg an 8 months ago. 47 yo AAF with history of PTSD, anxiety and insomnia c/o irma ears itching, has tried ear drops which didn't help. She was also using Flonase. 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 She doesn't take any antihistamines. Functional Status Date Functional Assessmen t No Information Instructions Date Instruction Additional Infor joelion Patient to wait unti l she is getting a little drowsy, then take Vistaril 25 mg-- one to two tablets at bedtime. Also no working in the bedroom, no caffeine after 12 pm, no TV in the bedroom. No exercise right before bed. Related to Insomnia I recommended patien t get [id number] ear wax removal kit with bulb. Follow the directions which will instruct the patient to instill 4 to 5 drops in the ear, let it set for about 5 minutes, then using the bulb, suction some warm tap water into the bulb and squirt into the affted ear, then suction out, squirt into the sink or container. Repeat this twice daily for 4 days. If still having difficulty hearing, make an appointment with the clinic for ear irrigation. If there is any history of perforation of the ear drum, DO NOT DO THIS. Related to Impacted cerumen, bilateral Assessments Type Assessment Date No Information Patient Care Teams Name Effective Dates (start - stop) Status Members No Information
--- OUTSIDE RECORDS SUMMARY | 2024-12-28 07:05 | XMS_ITS | Continuity of Care Document ---
Author Organization [facility] Address [address] [place] [address] Phone Care Team Providers Care Research Instrumentation Technician Name Role Phone Magen ANGELES, Federico Unavailable Unavailable Procedures Procedure Date MRI upr extr joint, w/o contrast 2009 Office/outpatient visit,est, mod 2009 X-ray exam of wrist, complete 0 Advance Directives Directive Yes / No Effective Date File Name No Information Encounters Encounter Description Practice Location Reason(s) For Visit Diagnoses Date Provider Providers Copied on Encounter [facility], [address] [place] [address], [id number], tel:[phone] [facility] No Information 0 Magen Caballero. [address] [place] [address], [id number] , . [phone] Referring Provider: Federico Pillai, [address] [place] [address], [id number] . tel:[phone] Office/outpat ient visit,est, mod [facility], [address] [place] [address], [id number], tel:[phone] [facility] No Information 0 Marcus Bird. [address] [place] [address], [id number] , . [phone] Referring Provider: Eladio Echavarria, [address] [place], [address] . tel:[phone] Family History Family Member Type Diagnosis Age At Onset No Information Payers Payer name Insurance type Covered libertarian ID Authoriza ruiz(s) BCBS Of [facility] [id number] Social History Type Description Quantity Date Captured [...]
[2024-12-28 07:18] VITALS: BP 150/90; PULSE 106; RESP 18; TEMP 36.9; O2SAT 98
--- OUTSIDE RECORDS SUMMARY | 2024-12-28 08:26 | XMS_ITS | Continuity of Care Document ---
Author Organization [facility] Address [address] [place] [address] Phone Care Team Providers Care Comparative Sociology Professor Name Role Phone Krzysztof Da Silva PA-C [...] Providers Copied on Encounter Office consultation, moderate [facility], [address] [place] [address], [id number], tel:[phone] [place] [facility] No Information 2 Rekha Blankenship. [address] [place], [place], [id number] , . tel:[phone] [facility], [address] [place] [address], [id number], tel:[phone] [facility] No Information 2 Rekha Blankenship. [address] [place], [place], [id number] , . tel:[phone] Referring Provider: Krzysztof Hunt, [address] [place] [address], [id number] . tel:[phone] Family History Family Member Type Diagnosis Age At Onset No Information Payers Payer name Insurance type Covered democrat ID Authormichaela ruiz(s) [employer] CI [id number] Social History Type Description Quantity Date Captured [...]
--- OUTSIDE RECORDS SUMMARY | 2024-12-28 08:26 | XMS_ITS | Continuity of Care Document ---
Author Organization [facility] Address [address] [place] [address] Phone Care Team Providers Care Stacker Attendant Name Role Phone Unavailable Unavailable Unavailable Allergies, [...] Diagnoses Date Provider Providers Copied on Encounter [facility], [address], [place], [place], [id number] , [place] tel: [phone] [facility] No Information 7 No Information OFFICE/OUTPA TIENT VISIT, NEW [facility], [address], [place], [place], [id number] , [place] tel: [phone] [facility] (chief complaint) insomnia [...] 89 Payers Payer name Insurance type Covered alliance party ID Praveen melchor(s) [facility] CI [id number] Social History Type Description Quantity Date Captured Comments Alcohol Use Details Unknown Caffeine Use Details Unknown Tobacco Use Status No Information Smoking Status No Information Sex Female Chief Complaint And Reason For Visit No Information Reason For Referral Reason For Referral No Information Plan Of Treatment Date Type Action Status Referral Referred To: [facility] Ordered: Referrals: Behavioral Health. [facility]. Evaluate and treat Appointment [...] She was also using Flonase. She has early childhood rhinitis; she has environmental and seasonal allergies. [...] to Insomnia I recommended patien t get [id number] ear wax removal kit with bulb. Follow [...]
--- OUTSIDE RECORDS SUMMARY | 2024-12-28 08:26 | XMS_ITS | Clinical Summary ---
Author Organization [facility] Address [address] [place] [address] Care Team Providers Care Cash Manager Name Role Phone Umesh Taylor DO Primary Care Provider [phone] Allergies Active Allergy Reactions Criticality Noted Date [...] device) in place 11/11/2020 Panic 11/11/2020 Psychosis ([facility]) 02/08/2020 Insomnia 03/22/2019 Arthritis 01/19/2018 Schizoaffective disorder ([facility]) 01/19 Bipolar disorder ([facility]) 01/19/2018 Patellofemoral arthritis 09/17/2017 Knee pain 10/07/2016 [...] 2023-2 5 season) 2024 11/25/2020 PHQ-2 (Physician [place]) 09/13/2024 11/05/2023 Cervical Cancer Screening Pa p [...] complete this topic Insurance MEDICAID Care Teams Cash Manager Relationship Specialty Start Date End Date Umesh [place] [address] [place] [address] PCP - General FAMILY PRACTICE 02/10/24
--- OUTSIDE RECORDS SUMMARY | 2024-12-28 08:26 | XMS_ITS | Continuity of Care Document ---
Author Organization [facility] Address [address] [place] [address] Phone Care Team Providers Care Extract Wringer Name Role Phone Magen ANGELES, Federico Unavailable Unavailable Procedures Procedure Date MRI upr extr joint, w/o contrast 2009 Office/outpatient visit,est, mod 2009 X-ray exam of wrist, complete 0 Advance Directives Directive Yes / No Effective Date File Name No Information Encounters Encounter Description Practice Location Reason(s) For Visit Diagnoses Date Provider Providers Copied on Encounter [facility], [address] [place] [address], [id number], tel:[phone] [facility] No Information 0 Magen Caballero. [address] [place] [address], [id number] , . [phone] Referring Provider: Federico Pillai, [address] [place] [address], [id number] . tel:[phone] Office/outpat ient visit,est, mod [facility], [address] [place] [address], [id number], tel:[phone] [facility] No Information 0 Marcus Bird. [address] [place] [address], [id number] , . [phone] Referring Provider: Eladio Echavarria, [address] [place], [address] . tel:[phone] Family History Family Member Type Diagnosis Age At Onset No Information Payers Payer name Insurance type Covered constitution party ID Authoriza ruiz(s) BCBS Of [facility] [id number] Social History Type Description Quantity Date Captured [...]
--- OUTSIDE RECORDS SUMMARY | 2024-12-28 08:27 | XMS_ITS | Clinical Summary ---
Author Organization [facility] Address [address] [place] [address] Care Team Providers Care Composition Stone Applicator Name Role Phone Erika Hutson ZENIA-ACCOUNTING SYSTEMS ANALYST Primary Care Provider Source Comments [facility],non-owned Affiliates and Associated Physician Practices is amultiple site organization consisting of ambulatory clinics and hospital sitesin [place], [place], [place] and [place]. This disclosure is being madepursuant to the Care Everywhere program and may not contain all information available regarding this patient. 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
--- NOTE | 2024-12-28 08:33 | ED.GENADULT ---
HPI - General Adult General Chief complaint: Psychiatric Symptoms Stated complaint: sleep psychosis Time Seen by Provider: 12/28/24 07:16 Source: patient Mode of arrival: ambulatory Limitations: no limitations History of Present Illness HPI narrative: [age] FEMALE WALKED IN TO THE ED COMPLAINING OF WORRIED ABOUT THE BLOOD BE WILL GET A KILL OLD WHITE PEOPLE IN [facility], ALSO LAST TIME HAD GOOD SLEEP WAS 13 YEARS AGO, SHE IS TELLING ME THAT SHE HAVE HISTORY OF SLEEP PSYCHOSIS,. PATIENT DENIES ANY FEVER, CHILLS, NAUSEA, VOMITING AND, PATIENT AWAKE, ALERT ORIENTED X4, DRINKS OCCASIONALLY, DENIES SMOKING CIGARETTES OR DRUG USE PATIENT DENIES ANY FEVER, CHILLS, NAUSEA, VOMITING, DIARRHEA, CONSTIPATION OR URINARY SYMPTOMS PATIENT DENIES ANY SUICIDAL OR HOMICIDAL IDEATION, TELLING ME THAT SHE IS EXTREMELY HUNGRY RIGHT NOW AND WOULD LIKE SOME FOOD AND SOME DRINK. Related Data Home Medications ?Medication ?Instructions ?Recorded ?Confirmed ?Last Taken ?Type paroxetine HCl 20 mg tablet (Paxil) 20 mg PO DAILY 05/11/23 11/11/23 Unknown History zolpidem 10 mg tablet (Ambien) 10 mg PO QHS 05/11/23 11/11/23 Unknown History Allergies Allergy/AdvReac Type Severity Reaction Status Date / Time No Known Allergies Allergy Verified 11/27/23 05:43 Review of Systems Review of Systems: All systems reviewed & are unremarkable except as noted in HPI and below PMFSH Past Medical History Medical History Tobacco abuse Obese Encounter for screening colonoscopy Insomnia Anxiety MARAH (obstructive sleep apnea) Social History Social History Smoking status: Current every day smoker Substance use type: does not use Living arrangements: with family Gender identity (if verbalized by the patient): Female Exam Narrative: GENERAL APPEARANCE: WELL-DEVELOPED, WELL-NOURISHED SKIN: NORMAL COLOR HEAD: NORMOCEPHALIC, NONTRAUMATIC EYES: CLEAR CONJUNCTIVA ENT: OROPHARYNX NORMAL, EARS NORMAL, NOSE NORMAL NECK: SUPPLE, NONTENDER CHEST AND RESPIRATORY: AIRWAY PATENT, NO RESPIRATORY DISTRESS, NO ACCESSORY MUSCLE USE HEART: REGULAR RATE/RHYTHM ABDOMEN: SOFT, NONTENDER, NO ORGANOMEGALY, QUIET BOWEL SOUNDS VASCULAR: NORMAL PERIPHERAL PULSES, NORMAL CAPILLARY REFILL. MUSCULOSKELETAL: NORMAL RANGE OF MOTION, NONTENDER BACK NEUROLOGIC: ALERT AND ORIENTED ?3, VACCINE SPECIALIST IS NORMAL TESTED, NO GROSS MOTOR DEFICIT PSYCH EVALUATION SHOWING THAT PATIENT IS DELUSIONAL, TELLING ME THERE IS RIOT TO KILL ALL WHITE PEOPLE. Course Vital Signs Vital signs: Vital Signs Temperature 36.9 C 12/28/24 07:18 Pulse Rate 106 H 12/28/24 07:18 Respiratory Rate 18 12/28/24 07:18 Blood Pressure 150/90 H 12/28/24 07:18 Pulse Oximetry 98 12/28/24 07:18 Oxygen Delivery Room Air 12/28/24 07:18 Temperature 36.9 C 12/28/24 07:18 Pulse Rate 86 12/28/24 10:52 Respiratory Rate 18 12/28/24 10:52 Blood Pressure 158/89 H 12/28/24 10:52 Pulse Oximetry 99 12/28/24 10:52 Oxygen Delivery Room Air 12/28/24 07:18 Medical Decision Making MDM Narrative Medical decision making narrative: PATIENT CAME IN WITH DELUSION OTHERWISE DENIES ANY SUICIDAL OR HOMICIDAL IDEATION, VITAL SIGNS SHOWING BLOOD PRESSURE 150/90, HEART RATE 106 OTHERWISE WITHIN NORMAL LIMIT PHYSICAL EXAMINATION IS INSIGNIFICANT EXCEPT PSYCH DISORDER BLOOD WORKUP TODAY INCLUDES CBC, CMP, TSH SHOWED INSIGNIFICANT ABNORMALITY URINALYSIS SHOWED NO EVIDENCE OF INFECTION URINE DRUG SCREEN SHOWED 3+ BACTERIA, TRACE LEUKOCYTE ESTRACE, 6-10 WBC'S IN THE URINE. UTI IS A POSSIBILITY DIAGNOSIS URINARY TRACT INFECTION, PSYCHOSIS. THE PT WAS DISCHARGED TO HOME.THE PT,S CONDITION UPON DISCHARGE WAS FAIR,EDUCATION WAS PROVIDED TO THE PT IN REFERENCE TO THE FINAL IMPRESSION,DISCHARGE STUDY RESULTS,TREATMENT,PROGNOSIS AND NEED FOR FOLLOW UP . Vital Signs Vital Signs: Vital Signs Temperature 36.9 C 12/28/24 07:18 Pulse Rate 106 H 12/28/24 07:18 Respiratory Rate 18 12/28/24 07:18 Blood Pressure 150/90 H 12/28/24 07:18 Pulse Oximetry 98 12/28/24 07:18 Oxygen Delivery Room Air 12/28/24 07:18 Temperature 36.9 C 12/28/24 07:18 Pulse Rate 86 12/28/24 10:52 Respiratory Rate 18 12/28/24 10:52 Blood Pressure 158/89 H 12/28/24 10:52 Pulse Oximetry 99 12/28/24 10:52 Oxygen Delivery Room Air 12/28/24 07:18 Lab Data 12/28/24 09:33 12/28/24 09:33 Labs: Lab Results 12/28/24 Range/Units 09:33 WBC 7.5 (4.5-10.0) K/mm3 RBC 3.88 L (4.2-5.4) M/mm3 Hgb 11.4 L (12.0-15.0) g/dL Hct 34.8 L (37.0-47.0) % MCV 89.7 (80-100) fl MCH 29.4 (26-34) pg MCHC 32.8 (32-36) g/dl RDW 12.7 (11.5-14.5) % Plt Count 224 (150-375) k/mm3 MPV 8.7 (7.4-10.4) fl Immature Gran % (Auto) 0.4 (0-0.5) % Neut % (Auto) 67.8 (45.5-73.1) % Lymph % (Auto) 22.3 (18.3-44.2) % [place] % (Auto) 8.4 (2.6-8.5) % Eos % (Auto) 0.8 (0-4.4) % Baso % (Auto) 0.3 (0.2-1.2) % Lymph # (Auto) 1.68 (0.9-3.2) K/mm3 [place] # (Auto) 0.6 (0.1-0.6) K/mm3 Eos # (Auto) 0.1 (0-0.3) K/mm3 Baso # (Auto) 0.0 (0.0-0.1) K/mm3 Abs Immat Gran (auto) 0.03 (0.00-0.031) K/mm3 Absolute Neuts (auto) 5.1 (1.3-6.7) K/mm3 Absolute Nucleated RBC 0.000 (0.0-0.012) K/mm3 Nucleated RBC % 0.0 (0.0-0.2) % Sodium 139 (137-145) mmol/L Potassium 4.2 (3.4-5.0) mmol/L Chloride 104 (98-107) mmol/L Carbon Dioxide 23 (22-30) mmol/L Anion Gap 12 (4-12) mmol/L BUN 10 D (7-17) mg/dL Creatinine 0.94 (0.7-1.0) mg/dL Estim Creat Clear Calc 75 ml/min Estimated GFR > 60 (59 - ) Glucose 102 (65-110) mg/dL Calcium 9.1 (8.4-10.2) mg/dL Total Bilirubin 0.4 (0.2-1.3) mg/dL AST 34 (14-36) U/L ALT 27 (6-35) U/L Alkaline Phosphatase 121 (38-126) U/L Total Protein 8.0 (6.3-8.2) g/dL Albumin 4.7 (3.5-5.1) g/dL TSH (Reflex) 4.150 (0.465-4.68) uIU/mL Free T4 1.34 (0.78-2.19) ng/dL Total T3 Pending Urine Color Yellow (Yellow) Urine Appearance Clear (Clear) Urine pH 5.5 (5.0-9.0) Ur Specific [place] 1.013 (1.001-1.035) Urine Protein Negative (Negative) mg/dL Urine Glucose (UA) Negative (Negative) mg/dL Urine Ketones Negative (Negative) mg/dL Ur Blood (Man) Negative (Negative) Urine Nitrate Negative (Negative) Urine Bilirubin Negative (Negative) Urine Urobilinogen 1.0 (<2.0) mg/dL Add Ur Microanalysis Reviewed Leukocyte Esterase Rfl Trace H (Negative) [place]/UL Urine RBC 0-2 (0-2) /hpf Urine WBC 6-10 H (0-3) /hpf Ur Squamous Epith Cells Few (Few) /hpf Urine Bacteria 3+ H /hpf Urine Casts 0-2 Urine Opiates Screen Negative (Negative) Urine Methadone Screen Negative (Negative) Ur Barbiturates Screen Negative (Negative) Ur Phencyclidine Scrn Negative (Negative) Ur Amphetamine Screen Negative (Negative) U Benzodiazepines Scrn Negative (Negative) Urine Cocaine Screen Negative (Negative) U Cannabinoids Screen Negative (Negative) Ethyl Alcohol < 10 (<10) mg/dL Critical Care Time Critical Care Time Critical Care Time: No Discharge Plan Discharge Clinical Impression: Psychosis, Urinary tract infection Patient Disposition: Home Condition: Stable Instructions: Antibiotic Form, Urinary Tract Infection in Women (ED), Psychotic Disorder (ED) Additional Instructions: RETURN IF SYMPTOMS ARE WORSENING , CALL YOUR FAMILY PHYSICIAN/YOUR PSYCHIATRIST FOR APPOINTMENT, TAKE TYLENOL NEEDED FOR ACHES AND PAIN, CONTINUE HOME MEDICATIONS. Patient Language: Russian Prescriptions: New nitrofurantoin monohyd/m-cryst [Macrobid] 100 mg capsule 100 mg PO Q12H 5 Days Qty: 10 0RF Rx Instructions: must administer with a meal/food No Action ibuprofen 600 mg tablet 600 mg PO TID PRN (Reason: pain) Qty: 30 0RF hydroxyzine HCl 25 mg tablet 25 mg PO QID PRN (Reason: anxiety) Qty: 20 0RF zolpidem [Ambien] 10 mg tablet 10 mg PO QHS paroxetine HCl [Paxil] 20 mg tablet 20 mg PO DAILY Follow-up/Referrals: Tania,Alize Bowser APRN [Primary Care Provider] -
--- NOTE | 2024-12-28 09:19 | PC.NURSE ---
Pt paranoid at this time, states there are riots in [place], all the white people are in danger its a purge
[2024-12-28 09:47] LABS: Basophils Percent Auto 0.3 % (0.2-1.2); Eosinophils Absolute Auto 0.1 K/mm3 (0-0.3); Eosinophils Percent Auto 0.8 % (0-4.4); Hematocrit 34.8 % (37.0-47.0); Hemoglobin 11.4 g/dL (12.0-15.0); Immature Granulocyte Absolute 0.03 K/mm3 (0.00-0.031); Immature Granulocyte Percent A 0.4 % (0-0.5); Lymphocytes Absolute Auto 1.68 K/mm3 (0.9-3.2); Lymphocytes Percent Auto 22.3 % (18.3-44.2); Mean Corpuscular HGB Conc 32.8 g/dl (32-36); Mean Corpuscular Hemoglobin 29.4 pg (26-34); Mean Corpuscular Volume 89.7 fl (80-100); Mean Platelet Volume 8.7 fl (7.4-10.4); Monocytes Absolute Auto 0.6 K/mm3 (0.1-0.6); Monocytes Percent Auto 8.4 % (2.6-8.5); Neutrophils Absolute Auto 5.1 K/mm3 (1.3-6.7); Neutrophils Percent Auto 67.8 % (45.5-73.1); Platelet Count Result 224 k/mm3 (150-375); Red Blood Count 3.88 M/mm3 (4.2-5.4); Red Cell Distribution Width 12.7 % (11.5-14.5); White Blood Count 7.5 K/mm3 (4.5-10.0)
[2024-12-28 09:55] LABS: Ethanol < 10 mg/dL (<10)
[2024-12-28 09:56] LABS: Add Urine Microscopic? YES; Appearance Urine Clear (Clear); Bacteria Urine 3+ /hpf; Bilirubin Urine Negative (Negative); Blood Urine Negative (Negative); Color Urine Yellow (Yellow); Glucose Urine UA Negative (Negative); Ketones Urine Negative (Negative); Leukocyte Esterase Ur Trace LEU/UL (Negative); Need Manual Microscopic Reviewed; Nitrate Urine Negative (Negative); Non Pathogenic Casts 0-2; Protein Urine Negative (Negative); RBC Urine 0-2 /hpf (0-2); Specific Grav Ur 1.013 (1.001-1.035); Squamous Epithelial Cell Urine Few /hpf (Few); pH Urine 5.5 (5.0-9.0)
[2024-12-28 10:02] LABS: Alanine Aminotransferase 27 U/L (6-35); Albumin Level 4.7 g/dL (3.5-5.1); Alkaline Phosphatase 121 U/L (38-126); Anion Gap 12 mmol/L (4-12); Aspartate Amino Transferase 34 U/L (14-36); Bilirubin,Total 0.4 mg/dL (0.2-1.3); Blood Urea Nitrogen 10 mg/dL (7-17); Calcium 9.1 mg/dL (8.4-10.2); Carbon Dioxide 23 mmol/L (22-30); Chloride 104 mmol/L (98-107); Estimated CRCL calculation 75 ml/min; Estimated Glomerular Filt Rate > 60; Glucose 102 mg/dL (65-110); Potassium 4.2 mmol/L (3.4-5.0); Sodium 139 mmol/L (137-145)
[2024-12-28 10:03] LABS: Amphetamine Screen Urine Negative (Negative); Barbiturate Screen Urine Negative (Negative); Benzodiazepines Screen Urine Negative (Negative); Cannabinoid Screen Urine Negative (Negative); Cocaine Screen Urine Negative (Negative); Methadone Screen Urine Negative (Negative); Opiate Screen Urine Negative (Negative); Phencyclidine Screen Urine Negative (Negative)
[2024-12-28 10:52] VITALS: BP 158/89; PULSE 86; RESP 18; O2SAT 99
[2024-12-28 11:00] LABS: Free T4 Free Thyroxine Reflex 1.34 ng/dL (0.78-2.19)
[2024-12-28 11:41] LABS: Total Triiodothyronine (T3) 1.21 NG/ML (0.97-1.69)
== END 2024-12-28 12:17 | disposition home or self-care (01) ==
PROVIDERS: Emergency Provider Emergency Medicine; PCP Nurse Practitioner Family
DX: F29 Unspecified psychosis not due to a substance or known physiological condition (principal); N39.0 Urinary tract infection, site not specified; F41.9 Anxiety disorder, unspecified; G47.33 Obstructive sleep apnea (adult) (pediatric); F17.210 Nicotine dependence, cigarettes, uncomplicated
CPT/HCPCS: 36415; 80053; 80307; 81001; 82077; 84439; 84443; 84480; 85025; 87086; 99283

== ENCOUNTER 2025-01-01 09:46 | Emergency (ER) | payer BC, SELFPAY ==
[2025-01-01 09:44] VITALS: BP 136/78; PULSE 78; RESP 20; TEMP 36.8; O2SAT 100
--- NOTE | 2025-01-01 09:57 | ED_ITS ---
HPI - General Adult General Chief complaint: GI Bleed Stated complaint: RECTAL BLEED Time Seen by Provider: 01/01/25 09:49 History of Present Illness HPI narrative: Patient is a 54-year-old female who presents to the ED with concerns of rectal bleeding. She reports she wiped after using the bathroom this morning and noticed some bright red blood on the toilet paper. Patient endorses a history of hemorrhoids and is wondering if this is what's causing the bleeding. She denies any history of genital herpes and reports I haven't had sex in two years. Patient denies any recent fevers, abdominal pain, constipation, or urinary symptoms. She is also requesting medications to help her sleep. Related Data Home Medications ?Medication ?Instructions ?Recorded ?Confirmed ?Last Taken ?Type paroxetine HCl 20 mg tablet (Paxil) 20 mg PO DAILY 05/11/23 11/11/23 Unknown History zolpidem 10 mg tablet (Ambien) 10 mg PO QHS 05/11/23 11/11/23 Unknown History Allergies Allergy/AdvReac Type Severity Reaction Status Date / Time No Known Allergies Allergy Verified 11/27/23 05:43 Review of Systems Review of Systems: All systems reviewed & are unremarkable except as noted in HPI and below PMFSH Past Medical History Medical History Tobacco abuse Obese Encounter for screening colonoscopy Insomnia Anxiety MARAH (obstructive sleep apnea) Social History Social History Smoking status: Current every day smoker Substance use type: does not use Living arrangements: with family Gender identity (if verbalized by the patient): Female Exam Narrative: GENERAL: Well appearing, well-nourished, non-toxic, in no acute distress. HEAD: Normocephalic, atraumatic. NECK: Supple. No adenopathy, no masses. RESPIRATORY: Airway patent, respirations nonlabored. Clear to auscultation bilaterally, no rales, rhonchi, wheezing. CARDIOVASCULAR: Regular rate and rhythm without murmurs, rubs, or gallops. Peripheral pulses 2+ and equal bilaterally. ABDOMINAL: Soft, nontender, nondistended, no hepatosplenomegaly. Normoactive BS. MUSCULOSKELETAL: Moves all extremities. Strength/ROM intact without gross deformities. SKIN: Warm, dry, normal color. No rashes. Small, pencil eraser-sized open wound at the 4 o'clock position. No active bleeding, no visible hemorrhoids. NEURO: A&O X3. Speech clear. Cranial nerves II-XII intact. No ataxic movements. PSYCHIATRIC: Appropriate mood and affect. Normal interaction. Course Vital Signs Vital signs: Vital Signs Temperature 36.8 C 01/01/25 09:44 Pulse Rate 78 01/01/25 09:44 Respiratory Rate 20 01/01/25 09:44 Blood Pressure 136/78 01/01/25 09:44 Pulse Oximetry 100 01/01/25 09:44 Oxygen Delivery Room Air 01/01/25 09:44 Temperature 36.8 C 01/01/25 09:44 Pulse Rate 78 01/01/25 09:44 Respiratory Rate 20 01/01/25 09:44 Blood Pressure 136/78 01/01/25 09:44 Pulse Oximetry 100 01/01/25 09:44 Oxygen Delivery Room Air 01/01/25 09:44 Medical Decision Making MDM Narrative Medical decision making narrative: Patient is a 54-year-old female who presents to the ED with concerns of rectal bleeding. She reports she wiped after using the bathroom this morning and noticed some bright red blood on the toilet paper. Patient endorses a history of hemorrhoids and is wondering if this is what's causing the bleeding. She denies any history of genital herpes and reports I haven't had sex in two years. Patient denies any recent fevers, abdominal pain, constipation, or urinary symptoms. She is also requesting medications to help her sleep. Labs Ordered: None necessary Imaging Ordered: None necessary Medications Ordered: Bacitracin to open wound Diagnosis: Open wound (pencil eraser-sized near rectum) Patient Education/Shared MDM: Results of examination shared with patient. It was explained to pt that she couldn't get a refill on her sleep medication here in the ER because this HOSPITAL INSURANCE CLERK was unable to follow-up with patient outside of the hospital. Pt states, I'm guessing I've got to follow-up with my psychiatrist about that. It was explained to pt that there were no visible hemorrhoids upon exam, but one open wound that looked as though a scab had been wiped off. Pt reports she does not shave in that area, nor does she have any other wounds in her genital area. She also denied wiping the area roughly. Patient strongly advised to monitor that area and follow-up with her PCP as soon as possible. She will be discharged home with a prescription for Bacitracin. Strict return precautions provided. Patient verbalized understanding is in agreement with plan. Vital signs stable at time of discharge. All questions answered. Vital Signs Vital Signs: Vital Signs Temperature 36.8 C 01/01/25 09:44 Pulse Rate 78 01/01/25 09:44 Respiratory Rate 20 01/01/25 09:44 Blood Pressure 136/78 01/01/25 09:44 Pulse Oximetry 100 01/01/25 09:44 Oxygen Delivery Room Air 01/01/25 09:44 Temperature 36.8 C 01/01/25 09:44 Pulse Rate 78 01/01/25 09:44 Respiratory Rate 20 01/01/25 09:44 Blood Pressure 136/78 01/01/25 09:44 Pulse Oximetry 100 01/01/25 09:44 Oxygen Delivery Room Air 01/01/25 09:44 Discharge Plan Discharge Clinical Impression: Injury to rectum without open wound into cavity, Rectal lesion Patient Disposition: Home Condition: Stable Instructions: Antibiotic Form, Rectal Bleeding (ED) Additional Instructions: Please return to the ER with any worsening symptoms. Follow-up with primary care provider as soon as possible. Please monitor the site near your rectum to ensure it's healing appropriately. Take all regularly scheduled medications as prescribed. Keep the wound near your rectum clean with soap and water. Please place Bacitracin to the site three times a day. Patient Language: Lao Prescriptions: New bacitracin 500 unit/gram ointment 1 applic topical TID Qty: 14 0RF No Action ibuprofen 600 mg tablet 600 mg PO TID PRN (Reason: pain) Qty: 30 0RF hydroxyzine HCl 25 mg tablet 25 mg PO QID PRN (Reason: anxiety) Qty: 20 0RF zolpidem [Ambien] 10 mg tablet 10 mg PO QHS paroxetine HCl [Paxil] 20 mg tablet 20 mg PO DAILY nitrofurantoin monohyd/m-cryst [Macrobid] 100 mg capsule 100 mg PO Q12H 5 Days Qty: 10 0RF Rx Instructions: must administer with a meal/food Follow-up/Referrals: Tania,Alize Bowser APRN [Primary Care Provider] - Time of Disposition: 10:12
[2025-01-01] MEDS: BACITRACIN OINTMENT 15 GM TUBE 1 APPLIC TOPICAL (10:12)
--- OUTSIDE RECORDS SUMMARY | 2025-01-01 11:13 | XMS_ITS | Continuity of Care Document ---
Author Organization [facility] Address [address] [place] [address] Phone Care Team Providers Care Kapok Machine Operator Name Role Phone Magen ANGELES, Federico Unavailable Unavailable Procedures Procedure Date MRI upr extr joint, w/o contrast 2009 Office/outpatient visit,est, mod 2009 X-ray exam of wrist, complete 0 Advance Directives Directive Yes / No Effective Date File Name No Information Encounters Encounter Description Practice Location Reason(s) For Visit Diagnoses Date Provider Providers Copied on Encounter [facility], [address] [place] [address], [id number], tel:[phone] [facility] No Information 0 Magen Caballero. [address] [place] [address], [id number] , . [phone] Referring Provider: Federico Pillai, [address] [place] [address], [id number] . tel:[phone] Office/outpat ient visit,est, mod [facility], [address] [place] [address], [id number], tel:[phone] [facility] No Information 0 Marcus Bird. [address] [place] [address], [id number] , . [phone] Referring Provider: Eladio Echavarria, [address] [place], [address] . tel:[phone] Family History Family Member Type Diagnosis Age At Onset No Information Payers Payer name Insurance type Covered constitution party ID Authoriza ruiz(s) BCBS Of [facility] [id number] Social History Type Description Quantity Date Captured [...]
--- OUTSIDE RECORDS SUMMARY | 2025-01-01 11:13 | XMS_ITS | Continuity of Care Document ---
Author Organization [facility] Address [address] [place] [address] Phone Care Team Providers Care Property Analyst Name Role Phone Unavailable Unavailable Unavailable Allergies, [...] Diagnoses Date Provider Providers Copied on Encounter [facility], [address], [place], [place], [id number] , [place] tel: [phone] [facility] No Information 7 No Information OFFICE/OUTPA TIENT VISIT, NEW [facility], [address], [place], [place], [id number] , [place] tel: [phone] [facility] ear (chief complaint) insomnia [...] type Covered green party ID Praveen melchor(s) [facility] CI [id number] Social History Type Description Quantity Date Captured Comments Alcohol Use Details Unknown Caffeine Use Details Unknown Tobacco Use Status No Information Smoking Status No Information Sex Female Chief Complaint And Reason For Visit No Information Reason For Referral Reason For Referral No Information Plan Of Treatment Date Type Action Status Referral Referred To: [facility] Ordered: Referrals: Behavioral Health. [facility]. Evaluate and treat Appointment [...] She was also using Flonase. 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 [...] to Insomnia I recommended patien t get [id number] ear wax removal kit with bulb. Follow [...]
--- OUTSIDE RECORDS SUMMARY | 2025-01-01 11:14 | XMS_ITS | Clinical Summary ---
Author Organization [facility] Address [address] [place] [address] Care Team Providers Care Psychiatric Rn Name Role Phone Umesh Taylor DO Primary Care Provider [phone] Allergies Active Allergy Reactions Criticality Noted Date [...] device) in place 11/11/2020 Panic 11/11/2020 Psychosis ([facility] 02/08/2020 Insomnia 03/22/2019 Arthritis 01/19/2018 Schizoaffective disorder ([facility]) 01/19 Bipolar disorder ([facility]) 01/19/2018 Patellofemoral arthritis 09/17/2017 Knee pain 10/07/2016 [...] 2023-2 5 season) 2024 11/25/2020 PHQ-2 (Physician [place]) 09/13/2024 11/05/2023 Cervical Cancer Screening Pa p [...] complete this topic Insurance MEDICAID Care Teams Psychiatric Rn Relationship Specialty Start Date End Date Umesh [place] [place] [address] PCP - General FAMILY PRACTICE 02/10/24
--- OUTSIDE RECORDS SUMMARY | 2025-01-01 11:14 | XMS_ITS | Clinical Summary ---
Author Organization [facility] Address [address] [place] [address] Care Team Providers Care Legal Editor Name Role Phone [place]Erika garcia oRbinson KNUTSON-REGISTERED NURSE SUPERVISOR Primary Care Provider Source Comments [facility],non-owned Affiliates and Associated Physician Practices is amultiple site organization consisting of ambulatory clinics and hospital sitesin [place], [place], [place] and [place]. This disclosure is being madepursuant to the Care Everywhere program and may not contain all information available regarding this patient. 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 Advance Directives * Full Code (Latest Code Status on File) Date Activated Date Inactivated Comments 02/08/2020 2:09 PM 02/13/2020 1:34 PM Care Teams Legal Editor Relationship Specialty Start Date End Date Erika Hutson APRN-ANIKA [address] [place] [address] PCP - General 04/03/19
--- OUTSIDE RECORDS SUMMARY | 2025-01-01 11:14 | XMS_ITS | Continuity of Care Document ---
Author Organization [facility] Address [address] [place] [address] Phone Care Team Providers Care Rounder And Backer Name Role Phone Krzysztof Da Silva PA-C [...] Providers Copied on Encounter Office consultation, moderate [facility], [address] [place] [address], [id number], tel:[phone] [facility] No Information 2 Rekha Blankenship. [address], [place], [id number] , . tel:[phone] [facility], [address] [place] [address], [id number], tel:[phone] [facility] No Information 2 Rekha Blankenship. [address], [place], [id number] , . tel:[phone] Referring Provider: Krzysztof Hunt, [address] [place] [address], [id number] . tel:[phone] Family History Family Member Type Diagnosis Age At Onset No Information Payers Payer name Insurance type Covered alliance party ID Authormichaela ruiz(s) [email or web address] CI [id number] Social History Type Description Quantity Date Captured [...]
--- OUTSIDE RECORDS SUMMARY | 2025-01-01 11:14 | XMS_ITS | Data Portability ---
Author Organization [facility] [place] Address [address] [place] [address] Care Team Providers Care Electrocardiogram Technician Name Role Phone CARLINE SANCHEZ Primary Care Provider Assessment Encounter Date Assessment Date Assessment LastModified by Organization Details LastModified Time 01/15/2021 01/15/2021 Unbillable. Edvin already charted on this colpo visit that I observed while in training. [email or web address] Not available 01/15/2021 16:32:33 01/15/2021 01/15/2021 pt ada well, plan f/u pending results Not available 01/15/2021 16:23:30 03/01/2023 03/01/2023 Annual gynecological exam performed. Patient will come back in a year unless there are new symptoms. [email or web address] Not available 03/01/2023 14:12:35 Plan of Treatment Reminders Order Date Submit Date Provider Last Modified By Organization Details Last Modified Time Details Appointments None recorded . Lab CMP, serum or plasma 2020 021 [email or web address] [facility] ([facility]), [address], [facility] [address], [place], [address], 17:52:21 lipid panel, serum 2020 021 [facility] (Lab), [address], [place], [address], 1 17:52:21 TSH, serum or plasma 2020 021 [email or web address] [facility] (Lab), [address] [facility], [place], [address], 1 17:52:21 vitamin D, 25-hydro xy, total, serum 2020 021 [email or web address] [facility] (Lab), [address], [place], [address], 1 17:52:[address] referral - Screenin g Colonosc opyPleas e contact this patient to schedule an appointm ent.If you have any question s, please call [phone]. ank francisca,Kapil braga, Referral 's 2022 023 [facility], [address], [address], [place], [address], 3 17:15:14 Procedures None recorded . Surgeries None recorded . Imaging MAMMO, screenin g, digital, bilatera l 2022 023 [email or web address] [facility], [address], [place], [address], 4 12:12:30 US, thyroid 2020 021 [email or web address] [facility], [address], [place], [address], 1 15:55:28 Medication Orders Valtrex 500 mg tablet 2022 023 [id number], [address] , [place], [place], [id number], 3 14:40:14 Patient TargetsNo targets recorded. Patient InstructionsNo instructions recorded. 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 Referral for Screening for malignant neoplasm of colon Screening Colonoscopy Screening ColonoscopyPlease contact this patient to schedule an appointment.If you have any questions, please call [phone].Thank you,Karrie, Referral's Referring Physician: Magali Bourgeois, [employer], Encounter Date: 03/01/2023 Results Created Date Observation Date Name Description Value Unit Range Abnormal Flag Note LastModifiedBy Organization Detail LastModifiedTime 12/10/19 21 12/09/2020 pap, IG Pap test SEE RESULT S BELOW CASE REPOR T: Cytol ogy Gynec ologi rajendra Repor t Case: [id number] Autho gerri grijalva Provi neptali: Clarita Loza, MARK Colle cted: 12/09 1717 Order ing Locat ion: [place] [facility] Recei brandi: 12/10 1014 First Scree n: Jo-Ann horn, Yumiko sanchez, CT Rescr een: Naomie Farris, CT Speci men: Elia cheekg Pap - Image d, Cervi x STATE MENT OF ADEQU ACY: Satis facto ry for evalu ation Trans forma tion zone compo nent absen t The absen ce of an endoc ervic al compo nent was confi rmed by an addit rock siegel. FINAL DIAGN OSIS: Negat maverick for Squam ous Intra epith elial Lesio n Elect [facility] tonya d by Naomie Farris, CT on 2020 at 9:32 AM ----- ----- ----- ----- ----- ----- ----- ----- ----- ----- ----- ----- ----- ----- ----- ----- ----- ---- HPV RESUL TS: HPV mRNA E6/E7 : Posit maverick - HPV mRNA Detec tasha HPV GENOT YPE 16 (TRACEY) : Detec tasha HPV GENOT YPE 18/45 (TRACEY) : Not Detec tasha NOTE: This high risk HPV mRNA assay detec ts fourt een high- risk HPV types (16, 18, 31, 33, 35, 39, 45, 51, 52, 56, 58, 59, 66, 68) witho ut diffe renti ation . This assay can diffe renti ate HPV 16 from HPV 18/45 , but does not diffe renti ate betwe en HPV 18 and HPV 45. A negat maverick HPV 16, 18/45 genot ype assay resul t does not exclu de the possi bilit y of cytol ogic abnor malit ies or of futur e or under lying LAURI 1, LAURI 3 or cance r. CHART ABLE COMME NT: Note: This speci men was revie wed by a Cytot echno logis t and/o r Patho logis t (as indic ated in this repor t) after evalu ation using the Thinp rep Imagi ng Syste m. CLINI RAJENDRA INFOR MATIO N: Menst rual Statu s: LMP (if appli cable ): Clini rajendra Histo ry/Pr eviou s Pap: Type of Neopl rosa (if appli cable ): Other Histo ry: Hormo jr (if appli cable ): PAP EDUCA EMMETT L NOTE: The Pap Test is a scree amarjit test with an inher ent false negat maverick rate. Liqui d-bas e sampl ing may decre ase, but will not elimi max, false negat maverick resul ts. A negat maverick resul t does not precl ude the prese nce and/o r devel opmen t of disea se, since the prese nce of abnor mal cells in the sampl e depen ds on the locat ion of the lesio n and sampl ing techn ique. Mary nued regul ar scree amarjit is the best metho d of cance r preve ntion . If repor tasha cytol ogic findi ng do not corre late with physi rajendra and/o r histo rical findi ngs, furth er inves tigat ion is recom phil d, as clini latonia hunt nted. Not Available [facility] (Lab) [address], [place], [address], 12/11/2020 18:06:14 01/16/20 21 01/15/2021 surgi rajendra patho logy study surgical pathology ([facility] SEE RESULT S BELOW CASE REPOR T: Surgi rajendra Patho logy Repor t Case: [id number] Autho gerri grijalva Provi neptali: Kika Garcia NP Colle cted: 01/15 1805 Order ing Locat ion: [place] Path[facility] [place] Recei brandi: 01/16 0216 Patho logis t: Jose Olson MD Speci mens: A) - Cervi x, CERVI RAJENDRA BRUSH BX B) - Endoc ervix , ECC BRUSH BX FINAL DIAGN OSIS: A. Cervi x, biops y: - Low-g rade squam ous intra epith elial lesio n (LAURI 1). B. Endoc ervix , curet tage: - Endoc ervic al and ectoc ervic al tissu e witho ut diagn ostic abnor malit desi castaneda d by Jose Olson MD on 021 at 3:04 PM ----- ----- ----- ----- ----- ----- ----- ----- ----- ----- ----- ----- ----- ----- ----- ----- ----- ---- CLINI RAJENDRA INFOR MATIO N: NOT PROVI DED MICRO SCOPI C DESCR IPTIO N: A micro scopi c exami natio n was perfo rmed. GROSS DESCR IPTIO N: A. Cervi x. The speci men is label ed with the patie nt's name, dinorah slaughter and cerv ical biops y . Recei brandi in forma alexa is a 0.5 x 0.3 x 0.1 cm aggre gate of mucus and minut e white -austin tissu e. The entir e speci men is submi tted in one casse tte. Gross ed by Akash Mireles Endoc ervix . The speci men is label ed with the patie nt's name, demog raphi cs and ECC . Recei brandi in forma alexa is a 0.2 x 0.2 x 0.1 cm aggre gate of mucus and minut e white -austin tissu e. The entir e speci men is submi tted in one casse tte. The speci men may not survi ve proce ssing . 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 Endoc ervix ; curet tage: Detac hed fragm ents of benig n ectoc ervic al mucos a, negat maverick for dyspl rosa No endoc ervic al tissu e ident ified B. Trans ition al zone; biops y: Detac hed fragm ents of benig n ectoc ervic al mucos a, negat maverick for dyspl rosa C. Cervi x at 11:00 ; biops y: Low-g rade squam ous intra epith elial lesio n (LAURI- 1) Elect luis fonseca by Bharat Kan rd, MD on 07/10 at 11:57 AM ----- ----- ----- ----- ----- ----- ----- ----- ----- ----- ----- ----- ----- ----- ----- ----- ----- ---- CLINI RAJENDRA INFOR LINDAEVA N: [id number] 12 MICRO SCOPI C DESCR IPTIO N: A micro scopi c exami natio n was perfo rmed. GROSS DESCR IPTIO N: A. Endoc ervix . The speci men is label ed with the patie nt's name, davieog raphi cs and ECC . Recei brandi in forma alexa is a 0.6 x 0.6 x 0.2 cm aggre gate of mucus and red-t an tissu e. The entir e speci men is submi tted in one casse tte. Gross ed by Maya partida B. Cervi x. The speci men is label ed with the patie nt's name, demog raphi cs and TMZ . Recei brandi in forma alexa is a less than 0.1 cm aggre gate of mucus and minut e white -austin tissu e. The entir e speci men is filte red throu gh a filte r bag and is submi tted in one casse tte; howev er, defin itive tissu e may not survi ve proce ssing . Gross ed by Maya partida C. Cervi x. The speci men is label ed with the patie nt's name, davieog raphi cs and 11:0 0 . Recei brandi in forma alexa is a 0.4 cm piece of white -austin tissu e. The entir e speci men is submi tted in one casse tte. 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 Elect luis noguera tonya d by Bharat Kan rd, MD on 2021 at 12:42 PM ----- ----- ----- ----- ----- ----- ----- ----- ----- ----- ----- ----- ----- ----- ----- ----- ----- ---- HPV RESUL TS: HPV mRNA E6/E7 : No HPV mRNA Detec tasha NOTE: This high risk HPV mRNA assay detec ts fourt een high- risk HPV types (16, 18, 31, 33, 35, 39, 45, 51, 52, 56, 58, 59, 66, 68) witho ut diffe renti ation . COMME NT: Note: This speci men was revie wed by a Cytot echno logis t and/o r Patho logis t (as indic ated in this repor t) after evalu ation using the Thinp rep Imagi ng Syste m. CLINI RAJENDRA INFOR MATIO N: Menst rual Statu s: LMP (if appli cable ): Clini rajendra Histo ry/Pr eviou s Pap: Type of Neopl rosa (if appli cable ): Signi fican t Clini rajendra Findi ngs: Other Histo ry: Hormo jr (if appli cable ): DUANE LUNA FOLLO W-UP: Follo w up as warra nted, based on curre nt guide lines and indiv idual patie nt consi derat ions. Not Available [facility] ([facility]) [address], [place], [address], 07/15/2022 13:45:26 03/01/20 23 03/01/2023 IMAGE GUIDE D PAP AND HPV REGAR DLESS image guided Pap, HPV regardless of Pap result SEE RESULT S BELOW CASE REPOR T: Cytol ogy Gynec ologi rajendra Repor t Case: [id number] Autho gerri grijalva Provi neptali: Magali Bourgeois, EMIGDIO Colle cted: 03/01 1452 Order ing Locat ion: [place] [facility] [place] Recei brandi: 03/02 0543 First Scree n: Sandie Keller, CT Rescr een: Jo-Ann horn, Yumiko sanchez, CT Speci men: Scree amarjit Pap - Image d, Cervi x STATE MENT OF ADEQU ACY: Satis facto ry for evalu ation Trans forma tion zone compo nent prese nt FINAL DIAGN OSIS: Negat maverick for Intra epith elial Leseva underwood or Tawana bond (NIL) . Elect luis noguera tonya d by Yumiko Lemon, CT on 2022 at 7:39 PM ----- ----- ----- ----- ----- ----- ----- ----- ----- ----- ----- ----- ----- ----- ----- ----- ----- ---- HPV RESUL TS: HPV mRNA E6/E7 : No HPV mRNA Detec tasha NOTE: This high risk HPV mRNA assay detec ts fourt een high- risk HPV types (16, 18, 31, 33, 35, 39, 45, 51, 52, 56, 58, 59, 66, 68) witho ut diffe renti ation . COMME NT: This speci men was revie wed by a Cytot echno logis t and/o r Patho logis t (as indic ated in this repor t) after evalu ation using the Thinp rep Imagi ng Syste m. CLINI RAJENDRA INFOR MATIO N: Menst rual Statu s: LMP (if appli cable ): Clini rajendra Histo ry/Pr eviou s Pap: Type of Neopl rosa (if appli cable ): Signi fican t Clini rajendra Findi ngs: Other Histo ry: Hormo jr (if appli cable ): PAP EDUCA EMMETT L NOTE: The Pap Test is a scree amarjit test with an inher ent false negat maverick rate. Liqui d-bas ed sampl ing may decre ase, but will not elimi max, false negat maverick resul ts. A negat maverick resul t does not precl ude the prese nce and/o r devel opmen t of disea se, since the prese nce of abnor mal cells in the sampl e depen ds on the locat ion of the lesio n and sampl ing techn ique. Mary nued regul ar scree amarjit is the best metho d of cance r preve ntion . If repor tasha cytol ogic findi ng do not corre late with physi rajendra and/o r histo rical findi ngs, furth er inves tigat ion is recom phil d, as clini latonia hunt nted. Not Available [facility] (Lab) [address], [place], [address], 03/03/2023 20:42:01 10/12/19 24 10/09/2023 MAMMO , scree maarjit, bilat eral No observ ation record ed. [id number] [facility] [address], [place], [address], 10/13/2023 12:18:01 11/08/19 24 11/08/2023 MAMMO , diagn ostic , digit al, bilat eral No observ ation record ed. SELMA [facility] [address], [place], [address], 12/02/2023 15:25:00 Result Notes None recorded. Problems Name Problem SNOMED Code Status Onset Date Resolution Date Notes Provider Name and Address Organization Details Recorded Time Clinical finding Completed 201812/09/2020 Presence of (intraute rine) contracep tive device;Re corded Elsewhere : No Locati on: [facility] So urce: EHR Chron ic: N Practic e ID: [id number] Bill able Time: 09:15:00 AM Diamond amaro [facility] 16:27:43 Emotional state finding Completed 201812/09/2020 Anxiety depressio n;Recorde d Elsewhere : No Locati on: [facility] So urce: EHR Chron ic: N Practic e ID: [id number] Bill able Time: 01:00:00 PM Diamond amaro [facility] 16:27:46 Insertion of intrauter ine contracep tive device Completed 201812/09/2020 Encounter for insertion of intrauter ine contracep tive device;Re corded Elsewhere : No Locati on: [facility] So urce: EHR Chron ic: N Practic e ID: [id number] Bill able Time: 01:30:00 PM Diamond amaro [facility] 16:27:47 Education Completed 201812/09/2020 Encounter for other general counselin g and advice on contracep tion;Jean-Paul rded Elsewhere : No Locati on: [facility] So urce: EHR Chron ic: N Practic e ID: [id number] Bill able Time: 01:00:00 PM Diamond amaro [facility] 16:27:45 Removal of intrauter ine device Completed 201812/09/2020 Encounter for removal of intrauter ine contracep tive device;Pr actice ID: [id number] Diamond amaro, [facility] 16:27:49 Problem Notes None recorded. Procedures Surgical History Date Name Laterality Status Provider Name and Address Organization Details Recorded Time 07/09/20 22 Colposcopy completed Nancy Barney [facility]- [address], [place], [address], [facility] 07/09/2022 14:55:15 07/09/20 22 Date of Last Pap Smear completed Angie Vail [facility] 03/01/2023 14:13:40 01/16/20 21 Colposcopy completed Kika Pardo CNM [address], [place], [address], [facility] 01/15/2021 16:23:20 01/16/20 21 Colposcopy completed Charity Michelle [facility] 01/15/2021 15:53:19 01/16/20 21 Colposcopy completed Alyssa Lowry [facility] 07/03/2022 13:18:09 05/10/19 97 section completed Charity Michelle [facility] 01/15/2021 15:55:12 09/13/18 83 Hernia repair w/mesh completed Charity Michelle [facility] 01/15/2021 16:16:24 Imaging Results Imaging Date Name Status LastModified by Organiz ation Details LastModified Time 10/09/2023 MAMMO, screening, bilateral completed [email or web address] [facility] [address] [facility], [place], [address], 10/13/2023 12:18:01 11/08/2023 MAMMO, diagnostic, digital, bilateral completed [facility] [address], [place], [address], 12/02/2023 15:25:00 Procedure Notes None recorded. Medical Equipment None Reported. Allergies Allergen ID Allergen Name Allergen Category Reaction Reaction Severity Criticality Documentation Date Start Date Code Code System Note Provider Name and Address Organization Details Recorded Time 91062 doxycycli ne Not available Not available Not available Not available 08/30/2020 3640 RxNorm Comme nt: [facility] [facility]; Not Available [facility] 0 14:24:24 Medications Name Sig Start Date Stop Date Status Note LastModified by Organization Details LastModified Time Mirena 21 mcg/24 hr (up to 8 years) 52 mg intrauter ine device as 2018 active MIRENA IUD INSERTED 9 AND NEEDS REMOVED 4 Not Available Not Available Not Available Effexor XR 150 mg capsule,e xtended release take 1 capsule by oral route every day 12/09 completed Prescrib ed Elsewher e: Yes Loca tion: [facility] odify By: estelle zamudio DateTime : 03/29/20 01:00:00 PM Not Available Not Available Not Available Valtrex 500 mg tablet Take 1 tablet every day by oral route. 2022 active Not Available Not Available Not Avai lable meloxicam 01/15 completed Not Available Not Available Not Available levothyro xine active Not Available Not Available Not Available lorazepam 03/01 completed Not Available Not Available Not Available Paxil active Not Available Not Availa ble Not Available Ambien active Not Available Not Availa ble Not Available gabapenti n 03/01 completed Not Available Not Available Not Available Vitals Date Recorded Body height Body mass index (BMI) Body weight Systolic blood pressure Diastolic blood pressure Provider Name and Address Organization Details Last Updated DateTime 12/09/2020 165.1 cm 40.1 kg/m2 754438.7 6 g 138 mm[Hg] 76 mm[Hg] Diamond Ricks [facility] 16:41:34 Date Recorded Body height Provider Name an d Address Organization Details Last Updated DateTime 01/15/2021 165.1 cm Alyssa Lowry [facility] 01/14/2021 22:57:29 Date Recorded Body height Body mass index (BMI) Body weight Systolic blood pressure Diastolic blood pressure Provider Name and Address Organization Details Last Updated DateTime 01/15/2021 165.1 cm 40.6 kg/m2 126779.5 4 g 146 mm[Hg] 81 mm[Hg] Charity Michelle [facility] 15:50:25 Date Recorded Body height Body mass index (BMI) Body weight Systolic blood pressure Diastolic blood pressure Provider Name and Address Organization Details Last Updated DateTime 03/01/2023 165.1 cm 40 kg/m2 483723.8 9 g 133 mm[Hg] 83 mm[Hg] Angie Vail [facility] 3 14:13:00 Date Recorded Systolic blood pressure Diastolic blood pressure Provider Name and Address Organization Details Last Updated DateTime 07/09/2022 122 mm[Hg] 78 mm[Hg] Nancy Barney, [facility]- [address], [place], [address], [facility] 07/09/2022 14:53:36 Social History Question Answer Notes LastModified by Organizat ion Details LastModified Time Tobacco Smoking Status Never Smoker Diamond Ricks null, [facility] 12/09/2020 16:33:45 What Is Your Level Of Alcohol Consumption? Occasional [email or web address] Information not available 01/15/2021 If You Are , What Was Your Level Of Alcohol Consumption Prior To ? None [email or web address] Information not available 01/15/2021 Are You Blind Or Do You Have Difficulty Seeing? No [email or web address] Information n ot available 01/15/2021 What Is Your Level Of Caffeine Consumption? Occasional [email or web address] Information not available 01/15/2021 In The 14 Days Before Symptom Onset, Have You Had Close Contact With A Laboratory-confirm ed COVID-19 While That Case Was Ill? No [email or web address] Information n ot available 01/15/2021 In The 14 Days Before Symptom Onset, Have You Had Close Contact With A Person Who Is Under Investigation For COVID-19 While That Person Was Ill? No [email or web address] Information not available 01/15/2021 Have You Been To An Area Known To Be High Risk For COVID-19? No [email or web address] Information not available 01/15/2021 Are You Deaf Or Do You Have Serious Difficulty Hearing? No [email or web address] Information not available 01/15/2021 What Type Of Diet Are You Following? REGULAR [email or web address] Information n ot available 01/15/2021 Have You Ever Been Counseled For Unhealthy Alcohol Use? No [email or web address] Information not available 01/15/2021 Do You Use Your Seat Belt Or Car Seat Routinely? Yes [email or web address] Information not available 01/15/2021 Do You Have Smoke And Carbon Monoxide Detectors In Your Home? Yes [email or web address] Information not available 01/15/2021 Do You Feel Stressed (tense, Restless, Nervous, Or Anxious, Or Unable To Sleep At Night)? [id number] [email or web address] Information not available 01/15/2021 Do You Use Any Illicit Or Recreational Drugs? No Information not available 01/15/2021 Do You Use Sunscreen Routinely? Yes [email or web address] Information not available 01/15/2021 Has Tobacco Cessation Counseling Been Provided? No [email or web address] Information not available 01/15/2021 Do You Or Have You Ever Used Any Other Forms Of Tobacco Or Nicotine? No [email or web address] Information not available 01/15/2021 Sex: Unknown Functional Status Question Answer Note LastModified by Organizat ion Details LastModified Time Do you have difficulty walking or climbing stairs? No Information not available 03/01/2023 Are you able to walk? YESWOREST [email or web address] Information not available 01/15/2021 Are you able to care for yourself? Yes Information not available 03/01/2023 Do you have difficulty dressing or bathing? No Information not available 03/01/2023 What is your exercise level? Occasional [email or web address] Information not available 01/15/2021 Mental Status None recorded. Family History Relationship Description Onset Age of this Age Resolved Age Notes LastModified by Organization Details LastModified Time Maternal Grandmother Malignant tumor of colon [email or web address] Not available 2020 16:33:02 Maternal Grandmother Hypertensive disorder Not available 2020 16:33:24 Maternal Grandmother Diabetes mellitus [email or web address] Not available 2020 16:33:32 Maternal Uncle Malignant tumor of colon [email or web address] Not available 2020 16:33:08 Medical History Condition Response Anxiety Disorder Y History of STI Y History of abnormal pap Y GI Problems Y Gynecological History Statement/Question Response Abnormal Pap N Date of Last Mammogram Date of LMP 09/13/2010 Sexually Active? Y STIs/STDs Yes HPV Vaccine N Colposcopy 01/15/2021 Date of Last Pap Smear 07/09/2022 Sexual Problems? N Current Control Method IUD LMP Definite Obstetrics History GPAL:G 4 P 2 0 2 2 Type Value Full Term 2 Spontaneous 1 Living 2 Ectopics 1 Total 4 Past Encounters Encounter ID Performer Location Encounter Start Date Encounter Closed Date Diagnosis/Indication Diagnosis SNOMED-CT Code Diagnosis ICD10 Code Diagnosis Note [id number] Clarita Ortiz [place] [address] [address] 12/09/2020 16:21:17 12/09/2020 17:18:33 Hypothyroidism 23337975 E03.9 Has not had levels checked in about 1 year. Will check with [employer] health panel. Gynecologi c examination [id number] Z01.419 Suggested Calcium with Vitamin D 1200-1500m g daily. Patient advised to get an annual flu shot in the fall and she could obtain at [facility] or [facility] take care clinic. Also to obtain TDap vaccinatio n if you have not had one in the last 10 years. Recommend yearly mammograms . Encouraged monthly self breast exams. Encourage safe sexual practices, to use condoms and limit partners if not already in a monogamous relationsh ip. Engage in daily exercise of low impact aerobic exercise 45-60 minutes 4-5 times weekly. Avoid tobacco and illicit drugs as well as using moderation with alcohol intake less than 1-2 8 oz beverages daily. This lifestyle behavior pattern will lead to less health conditions and longer life span. If BMI greater than 25 weight watchers or dietary consult advised. All questions have been answered. Patient appears to understand informatio n, but if you have any questions please call or respond to this email. Menopausal flushing 1983 [id number] N95.1 Will start with checking health panel with tsh first. Did discuss use of paxil. Pt would like to try something to help because she feels this is the cause of her sleep disturbanc e. RTC in 2 weeks to follow up on labs and discuss treatment further. Thyroid nodule [id number] E04.1 U/S of thyroid ordered. Pt will call to schedule. [id number] Kika Pardo, [facility] [address],[place] [address] 01/15/2021 15:30:23 01/17/2021 15:38:07 Human papillomavirus deoxyribonucleic acid detected, high risk on cervical specimen [id number] R87.810 [id number] Nancy Barney [facility] [address],[place] [address] 01/15/2021 15:26:47 01/17/2021 15:24:14 [id number] Nancy Barney [place] [address],[place] [address] 07/09/2022 13:52:36 07/09/2022 15:07:05 Low grade squamous intraepithelial lesion on cervical Papanicolaou smear [id number] 9105 R87.612 See procedure notes.Post -procedure instructio ns reviewed with understand ing verbalized .Will contact with results & next steps in plan of care. Counseled on Pap/HPV guidelines /Testing/R esults with understand ing verbalized .All questions answered to patient satisfacti on. Booklet & additional resources regarding pap smear/HPV/ Pap results given. https://ww w.cancer.g ov/types/c ervical/un derstandin g-abnormal -hpv-and-p ap-test-re sults/unde rstanding- cervical-c hanges.pdf [id number] RADHA Castro [place] [address],[place] [address] 03/01/2023 13:59:55 03/02/2023 12:43:01 Gynecologic examination [id number] Z01.419 Suggested Calcium with Vitamin D 1200-1500m g daily. Patient advised to get an annual flu shot in the fall and she could obtain at [facility] or [facility] care clinic. Also to obtain TDap vaccinatio n if you have not had one in the last 10 years. Recommend yearly mammograms . Encouraged monthly self breast exams. Encourage safe sexual practices, to use condoms and limit partners if not already in a monogamous relationsh ip. Engage in daily exercise of low impact aerobic exercise 45-60 minutes 4-5 times weekly. Avoid tobacco and illicit drugs as well as using moderation with alcohol intake less than 1-2 8 oz beverages daily. This lifestyle behavior pattern will lead to less health conditions and longer life span. If BMI greater than 25 weight watchers or dietary consult advised. All questions have been answered. Patient appears to understand informatio n, but if you have any questions please call or respond to this email. WWEBC - Mirena IUD. Inserted 03/30/19. Expires 2027h appy with this method, (+) IUD strings noted on examabnorm al pap 06/2022 - ASCUS, HPV (-) with colpo LAURI-1repea t pap done todaySTI testing added to papBlood STI declinedma mmogram order givenrefer [facility] colonoscop yFrequent HSV outbreaks. Recently SA again and would like to restart suppressiv e therapy. R/B/A discussed. Rx sentUTD with PCPRTC in 1 year or sooner if needed Screening for malignant neoplasm of breast [id number] Z12.39 Screening for malignant neoplasm of colon [id number] Z12.11 Recurrent genital herpes simplex [id number] A60.00 History of abnormal cervical Papanicolaou smear [id number] Z87.42 Health Concerns Section Related Observation LastModified by Organization Detai ls LastModified Time None Recorded Concern Status LastModified by Organization Details LastModified Time None Recorded Advance Directives Directive None Recorded Payers Encounter Date Sequence Insurance Name Policy Number Policy Knox Covered Member ID Knox Member ID Guarantor Name 12/09/2020 1 [facility] [id number] Gaydeepak Daigle mons [id number] Gay Randall [facility] 01/15/2021 1 [facility] [id number] Gaydeepak Daigle mons [id number] Gay Randall Kourtney 01/15/2021 1 [facility] [id number] Gay Oxana mons [id number] Gay Randall Kourtney 07/09/2022 1 [facility] [id number] Gaydeepak Daigle mons [id number] Gay Randall Kourtney 03/01/2023 1 [facility] [id number] Gay Oxana mons [id number] Gay [facility] Notes Date Note Type Note Provider Name and Address Organization Details Recorded Time 12/09/2020 text/html Annual GYNReport ed bypatient.Menstrual cycle:amenorrhea d/t IUD Urinary symptoms:No hematuria; No incontinence Vulva:No genital lesion Vagina:Normal vaginal discharge Breast:No breast pain; No breast lump; No nipple discharge Sexual complaints:No sexual complaints; No pain during intercourse; Normal libido Menopausal Symptoms:Normal vaginal lubrication;Hot flashes;Insomnia due to night sweats Psychological symptoms:No depression; No anxiety; No PMDD Hot flashes/night sweats x 1 year. Thinks her sleep disorder is d/t the hot flashes. History of hypothyroidism. Has not had tsh in over 1 year. Clarita amaro [facility] 12/09/2020 17:17:19 01/15/2021 text/html normal pap +HPV 16, reviewed pap, pathology, colposcopy, consent signed Kika Pardo CNM [address], [place], [address], [facility] 01/24/2021 08:57:34 07/09/2022 text/html Here today for R /P Colpo with pap smear per recommendations from 2020. Nancy Barney, [facility]- [address], [place], [address], [facility] 07/09/2022 14:56:38 03/01/2023 text/html Annual GYNReport ed bypatient.Menstrual cycle:Normal menses Urinary symptoms:No hematuria; No incontinence Vulva:No genital lesion Vagina:Normal vaginal discharge Breast:No breast pain; No breast lump; No nipple discharge Current Contraception:Satisf ied with current contraception; Intrauterine device (iud) Sexual complaints:No sexual complaints; No pain during intercourse; Normal libido Menopausal Symptoms:No menopausal symptoms; Normal vaginal lubrication Psychological symptoms:No depression; No anxiety; No PMDD Preventive measures:Encourage self breast examination; Encourage regular exercise; Encourage no tobacco use; Encourage regular mammograms starting age 40 RADHA Castro [address], [place], [address], [facility] 03/01/2023 17:25:10 OBGyn Episode Ob Episode Information Episode Created Date Number of Fetuses Patient Bloodtype Patient rh Status Prepregnancy Weight lbs Domestic Partner Domestic Partner Phone Father Name Humane Officer Status 12/10/19 21 1 CLOSED Fetus Data First Name Last Name Admitted to NICU Weight (g) Sex Living Outcome Pediatric Complications Fetus ID Race Codes Race Delivery Type 2579.57 7704 F Full Term 8691 Vaginal Delivery Juan Calculation Initial Juan Date Initial Exam Date Initial Exam Provider Initial Ultrasound Date Last Menstrual Period Date Ultra Sound Weeks Gestation 0 Eighteen To Twenty Week Juan Update Ultra Sound Date Fundal Height At Umbil Quickening Date Ultra Sound Latest Weeks Gestation Final Juan Confirmed By Final Juan Confirmed Date Final Juan Date Ultra Sound Latest Days Gestation 0 0 Menstrual History Last Menstrual Date Menses Monthly On Bcp Conception Prior Menses Frequency Hcg Plus Date Menarche Onset Age Delivery Information Delivery Date Delivery Type Labor Anesthesia Weeks Gestation Incision Type Labor Labor Length Hrs Delivered By Post Complications Tubal Sterilization Discharge Date Comments 0 40 Discharge Information Feeding Method Contraceptive Method Maternal HG B and HCT Levels Ob Episode Information Episode Created Date Number of Fetuses Patient Bloodtype Patient rh Status Prepregnancy Weight lbs Domestic Partner Domestic Partner Phone Father Name Humane Officer Status 12/10/19 21 1 CLOSED Fetus Data First Name Last Name Admitted to NICU Weight (g) Sex Living Outcome Pediatric Complications Fetus ID Race Codes Race Delivery Type 2664.85 3 M Full Term 8690 Primary Juan Calculation Initial Juan Date Initial Exam Date Initial Exam Provider Initial Ultrasound Date Last Menstrual Period Date Ultra Sound Weeks Gestation 0 Eighteen To Twenty Week Juan Update Ultra Sound Date Fundal Height At Umbil Quickening Date Ultra Sound Latest Weeks Gestation Final Juan Confirmed By Final Juan Confirmed Date Final Juan Date Ultra Sound Latest Days Gestation 0 0 Menstrual History Last Menstrual Date Menses Monthly On Bcp Conception Prior Menses Frequency Hcg Plus Date Menarche Onset Age Delivery Information Delivery Date Delivery Type Labor Anesthesia Weeks Gestation Incision Type Labor Labor Length Hrs Delivered By Post Complications Tubal Sterilization Discharge Date Comments 7 40 Discharge Information Feeding Method Contraceptive Method Maternal HG B and HCT Levels Ob Episode Information Episode Created Date Number of Fetuses Patient Bloodtype Patient rh Status Prepregnancy Weight lbs Domestic Partner Domestic Partner Phone Father Name Humane Officer Status 12/10/19 21 1 CLOSED Fetus Data First Name Last Name Admitted to NICU Weight (g) Sex Living Outcome Pediatric Complications Fetus ID Race Codes Race Delivery Type 8692 Juan Calculation Initial Juan Date Initial Exam Date Initial Exam Provider Initial Ultrasound Date Last Menstrual Period Date Ultra Sound Weeks Gestation 0 Eighteen To Twenty Week Juan Update Ultra Sound Date Fundal Height At Umbil Quickening Date Ultra Sound Latest Weeks Gestation Final Juan Confirmed By Final Juan Confirmed Date Final Juan Date Ultra Sound Latest Days Gestation 0 0 Menstrual History Last Menstrual Date Menses Monthly On Bcp Conception Prior Menses Frequency Hcg Plus Date Menarche Onset Age Delivery Information Delivery Date Delivery Type Labor Anesthesia Weeks Gestation Incision Type Labor Labor Length Hrs Delivered By Post Complications Tubal Sterilization Discharge Date Comments 7 Discharge Information Feeding Method Contraceptive Method Maternal HG B and HCT Levels
== END 2025-01-01 10:25 | disposition home or self-care (01) ==
PROVIDERS: Emergency Provider Registered Nurse; PCP Nurse Practitioner Family
DX: S36.60XA Unspecified injury of rectum, initial encounter (principal); L98.9 Disorder of the skin and subcutaneous tissue, unspecified; G47.33 Obstructive sleep apnea (adult) (pediatric); E66.9 Obesity, unspecified; Z68.41 Body mass index [BMI] 40.0-44.9, adult; F17.200 Nicotine dependence, unspecified, uncomplicated; X58.XXXA Exposure to other specified factors, initial encounter
CPT/HCPCS: 99283; A9270

== ENCOUNTER 2025-01-24 16:42 | Emergency (ER) | payer MEDICAID, SELFPAY ==
[2025-01-24 16:58] VITALS: BP 155/101; PULSE 108; RESP 20; TEMP 36.8; O2SAT 100
--- OUTSIDE RECORDS SUMMARY | 2025-01-24 17:07 | XMS_ITS | Clinical Summary ---
Author Organization [facility] Address [address] [place] [address] Care Team Providers Care Airline Pilot/First Officer Name Role Phone Umesh Taylor DO Primary Care Provider [phone] Allergies Active Allergy Reactions Criticality Noted Date [...] device) in place 11/11/2020 Panic 11/11/2020 Psychosis ([facility]) 02/08/2020 Insomnia 03/22/2019 Arthritis 01/19/2018 Schizoaffective disorder ([facility]) 01/19 Bipolar disorder ([facility]) 01/19/2018 Patellofemoral arthritis 09/17/2017 Knee [...] 2023-2 5 season) 2024 11/25/2020 PHQ-2 (Physician [place]) 09/13/2024 11/05/2023 Cervical Cancer Screening Pa p [...] complete this topic Insurance MEDICAID Care Teams Airline Pilot/First Officer Relationship Specialty Start Date End Date Umesh Taylor [place] [address] [place] [address] PCP - General FAMILY PRACTICE 02/10/24
--- OUTSIDE RECORDS SUMMARY | 2025-01-24 17:07 | XMS_ITS | Continuity of Care Document ---
Author Organization [facility] Address [address] [place] [address] Phone Care Team Providers Care Professor Of Legal Studies Name Role Phone Krzysztof Da Silva PA-C [...] Providers Copied on Encounter Office consultation, moderate [facility], [address] [place] [address], [id number], tel:[phone] [place] [facility] No Information 2 Rekha Blankenship. [address] [place], [place], [id number] , . tel:[phone] [facility], [address] [place] [address], [id number], tel:[phone] [facility] No Information 2 Rekha Blankenship. [address] [place], [place], [id number] , . tel:[phone] Referring Provider: Krzysztof Hunt, [address] [place] [address], [id number] . tel:[phone] Family History Family Member Type Diagnosis Age At Onset No Information Payers Payer name Insurance type Covered green party ID Authormichaela ruiz(s) [employer] [place] [id number] Social History Type Description Quantity Date Captured [...]
--- OUTSIDE RECORDS SUMMARY | 2025-01-24 17:07 | XMS_ITS | Continuity of Care Document ---
Author Organization [facility] Address [address] [place] [address] Phone Care Team Providers Care Coal Cutting Machine Operator Name Role Phone Magen ANGELES, Federico Unavailable Unavailable Procedures Procedure Date MRI upr extr joint, w/o contrast 2009 Office/outpatient visit,est, mod 2009 X-ray exam of wrist, complete 0 Advance Directives Directive Yes / No Effective Date File Name No Information Encounters Encounter Description Practice Location Reason(s) For Visit Diagnoses Date Provider Providers Copied on Encounter [facility], [address] [place] [address], [id number], tel:[phone] [facility] No Information 0 Magen Caballero. [address] [place] [address], [id number] , . [phone] Referring Provider: Federico Pillai, [address] [place] [address], [id number] . tel:[phone] Office/outpat ient visit,est, mod [facility], [address] [place] [address], [id number], tel:[phone] [facility] No Information 0 Marcus Bird. [address] [place] [address], [id number] , . [phone] Referring Provider: Eladio Echavarria, [address] [place], [address] . tel:[phone] Family History Family Member Type Diagnosis Age At Onset No Information Payers Payer name Insurance type Covered alliance party ID Authoriza ruiz(s) BCBS Of [facility] [id number] Social History Type Description Quantity Date Captured [...]
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
--- OUTSIDE RECORDS SUMMARY | 2025-01-24 17:07 | XMS_ITS | Data Portability ---
Author Organization 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 (Lab), [address], [place], [address], 1 17:52:21 TSH, serum or plasma [address] (Lab), [address], [place], [address], 1 17:52:21 vitamin D, 25-hydro xy, total, serum [id number] (Lab), [address], [place], [address], 1 17:52:[address] referral - Screenin g Colonosc opyPleas e contact this patient to schedule an appointm ent.If you have any question s, please call [phone]. chase espinosa,Kapil braga, Referral 's 2022 023 [facility], [address], [address], [place], [address], 3 17:15:14 Procedures None recorded . Surgeries None recorded . Imaging MAMMO, screenin g, digital, bilatera l 2022 023 [email or web address] [facility], [address], [place], [address], 4 12:12:30 US, thyroid 2020 021 [email or web address] [facility], [address], [place], [address], 1 15:55:28 Medication Orders Valtrex 500 mg tablet 2022 023 [id number], [address], [place], [place], [id number], 3 14:40:14 Patient TargetsNo targets recorded. Patient InstructionsNo instructions recorded. Reason for Referral Cardiac Monitor Referral for Screening for malignant neoplasm of colon Screening Colonoscopy Screening ColonoscopyPlease contact this patient to schedule an appointment.If you have any questions, please call [phone].Thank you,Karrie, Referral's Referring Physician: Magali Bourgeois, MUSIC ORCHESTRATOR, Encounter Date: 03/01/2023 Results Created Date Observation Date Name Description Value Unit Range Abnormal Flag Note LastModifiedBy Organization Detail LastModifiedTime 12/10/19 21 12/09/2020 pap, IG Pap test SEE RESULT S BELOW CASE REPOR T: Cytol ogy Gynec ologi rajendra Repor t Case: [id number] Autho gerri grijalva Provi neptali: Clarita Loza CNM Colle cted: 12/09 1717 Order ing Locat ion: [place] Path[facility] Recei brandi: 12/10 1014 First Scree n: Jo-Ann horn, Yumiko sanchez, CT Rescr een: Naomie Farris, CT Speci men: Elia ocasio Pap - Image d, Cervi x STATE MENT OF ADEQU ACY: Satis facto ry for evalu ation Trans forma tion zone compo nent absen t The absen ce of an endoc ervic al compo nent was confi rmed by an addit rock sieegl. FINAL DIAGN OSIS: Negat maverick for Squam ous Intra epith elial Lesio n Elect sentara [facility] evangelist tonya d by Naomie Farris, CT on [...] as clini latonia hunt nted. Not Available [facility] (Lab) [address], [place], [address], 12/11/2020 18:06:14 01/16/20 21 01/15/2021 surgi rajendra patho logy study surgical pathology ([facility] SEE RESULT S BELOW CASE REPOR T: [...] in one casse tte. Gross ed by Katar zyna Tylka B. Endoc ervix . The speci men is [...] Gross ed by Akash Montes Not Available [facility] (Lab) [address], [place], [address], 01/16/2021 16:07:00 01/16/20 21 01/15/2021 pregn tri test, urine HCG negati ve Not Available [place] [address], [place], [address], 01/15/2021 16:16:47 07/09/20 22 07/09/2022 SURGI RAJENDRA PATHO LOGY surgical pathology SEE RESULT S BELOW CASE REPOR T: Surgi rajendra Patho logy Repor t Case: [id number] Autho gerri grijalva Provi neptali: Teodoro Rm Colle cted: 07/09 1712 CHEMICAL EDUCATOR Order ing Locat ion: [place] Patho logy Recei brandi: 07/10 0142 Patho logis t: Bharat Kna rd, MD Speci mens: A) - Endoc [...] elial lesio n (LAURI- 1) Elect luis castaneda d by Bharat Kan rd, MD on 07/10 at 11:57 AM ----- ----- ----- ----- ----- ----- ----- ----- ----- ----- ----- ----- ----- ----- ----- ----- ----- ---- CLINI RAJENDRA INFOR AFSHAN N: R87.6 12 MICRO SCOPI C DESCR IPTIO N: A micro scopi c exami natio n was perfo rmed. GROSS DESCR IPTIO N: A. Endoc ervix . The speci men is label ed with the patie nt's name, dinorah raphi cs and ECC . Recei brandi in forma alexa is a 0.6 x 0.6 x 0.2 [address] of mucus and red-t an tissu e. The entir e speci men is submi tted in one casse tte. Gross ed by Maya partida B. Cervi x. The speci men is label ed with the patie nt's name, davieog raphi cs and TMZ . Recei brandi [...] ed with the patie nt's name, dinorah raphi cs and 11:0 0 . Recei brandi in forma alexa is a 0.4 cm piece of white -austin tissu e. The entir e speci men is submi tted in one casse tte. Gross ed by Maya partida Not Available [facility] [address] [place], [address], 07/10/2022 12:59:45 07/09/20 22 07/09/2022 IMAGE GUIDE D PAP AND HPV REGAR DLESS image guided Pap, HPV regardless of Pap result SEE RESULT S BELOW abnormal CASE REPOR T: Cytol ogy Gynec ologi rajendra Repor t Case: [id number] Autho gerri grijalva Provi neptali: Du corona , Yue Guadalupe cted: 07/09 1709 CHEMICAL EDUCATOR Order ing Locat ion: [place] Patho logy [...] ous Cells of Undet ermin ed Signi fican ce (ASC- US). Elect luis noguera tonya [...] Neopl rosa (if appli cable ): Signi ficdiomedes t Clini rajendra Findi ngs: Other Histo ry: Hormo jr (if appli cable ): DUANE LUNA FOLLO W-UP: Follo w up as warra nted, based on curre nt guide lines and indiv idual patie nt consi derat ions. Not Available [facility] (Lab) [address], [place], [address], 07/15/2022 13:45:26 03/01/20 23 03/01/2023 IMAGE GUIDE [...] OSIS: Negat maverick for Intra epith elial Radha underwood or Tawana bond (NIL) . Elect [...] as clini latonia hunt nted. Not Available [facility] (Lab) [address], [place], [address], 03/03/2023 20:42:01 10/12/19 24 10/09/2023 MAMMO , scree amarjit, bilat eral No observ ation record ed. [email or web address] [facility] [address], [place], [address], 10/13/2023 12:18:01 11/08/19 24 11/08/2023 MAMMO , diagn ostic , digit al, bilat eral No observ ation record ed. SELMA [facility] [address], [place], [address], 12/02/2023 15:25:00 Result Notes None recorded. Problems Name Problem SNOMED Code Status Onset Date Resolution Date Notes Provider Name and Address Organization Details Recorded Time Clinical finding Completed 201812/09/2020 Presence of (intraute rine) contracep tive device;Re corded Elsewhere : No Locati on: [facility] So urce: EHR Chron ic: N Practic e ID: [id number] Bill able Time: 09:15:00 AM Diamond amaro [facility] 16:27:43 Emotional state finding Completed 201812/09/2020 Anxiety depressio n;Recorde d Elsewhere : No Locati on: [facility] So urce: EHR Chron ic: N Practic e ID: [id number] Bill able Time: 01:00:00 PM Diamond amaro [facility] 16:27:46 Insertion of intrauter ine contracep tive device Completed 201812/09/2020 Encounter for insertion of intrauter ine contracep tive device;Re corded Elsewhere : No Locati on: [facility] So urce: EHR Chron ic: N Practic e ID: [id number] Bill able Time: 01:30:00 PM Diamond amaro [facility] 16:27:47 Education Completed 201812/09/2020 Encounter for other general counselin g and advice on contracep tion;Jean-Paul rded Elsewhere : No Locati on: [facility] So urce: EHR Chron ic: N Practic e ID: [id number] Bill able Time: 01:00:00 PM Diamond amaro [facility] 16:27:45 Removal of intrauter ine device Completed 201812/09/2020 Encounter for removal of intrauter ine contracep tive device;Pr actice ID: [id number] Diamond amaro, [facility] 16:27:49 Problem Notes None recorded. Procedures Surgical History Date Name Laterality Status Provider Name and Address Organization Details Recorded Time 07/09/20 22 Colposcopy completed Nancy Barney [facility]- [address], [place], [address], [facility] 07/09/2022 14:55:15 07/09/20 22 Date of Last Pap Smear completed Angie Vail [facility] 03/01/2023 14:13:40 01/16/20 21 Colposcopy completed Kika Pardo CNM [address], [place], [address], [facility] 01/15/2021 16:23:20 01/16/20 21 Colposcopy completed Charity Michelle [facility] 01/15/2021 15:53:19 01/16/20 21 Colposcopy completed Alyssa Lowry [facility] 07/03/2022 13:18:09 05/10/19 97 section completed Charity Michelle [facility] 01/15/2021 15:55:12 09/13/18 83 Hernia repair w/mesh completed Charity Michelle [facility] 01/15/2021 16:16:24 Imaging Results Imaging Date Name Status LastModified by Organiz ation Details LastModified Time 10/09/2023 MAMMO, screening, bilateral completed [email or web address] [facility] [address] [facility], [place], [address], 10/13/2023 12:18:01 11/08/2023 MAMMO, diagnostic, digital, bilateral completed [facility] [address], [place], [address], 12/02/2023 15:25:00 Procedure Notes None recorded. Medical Equipment None Reported. Allergies Allergen ID Allergen Name Allergen Category Reaction Reaction Severity Criticality Documentation Date Start Date Code Code System Note Provider Name and Address Organization Details Recorded Time 09194 doxycycli ne Not available Not available Not available Not available 08/30/2020 3640 RxNorm Comme nt: [facility]; Not Available [facility] 0 14:24:24 Medications Name Sig Start Date [...] Prescrib ed Elsewher e: Yes Loca tion: [facility] odify By: estelle zamudio DateTime : [...] Updated DateTime 12/09/2020 165.1 cm 40.1 kg/m2 386546.7 6 g 138 mm[Hg] 76 mm[Hg] Diamnod Ricks [facility] 1 16:41:34 Date Recorded Body height Provider Name an d Address Organization Details Last Updated DateTime 01/15/2021 165.1 cm Alyssa Lowry [facility] 01/14/2021 22:57:29 Date Recorded Body height Body mass index (BMI) Body weight Systolic blood pressure Diastolic blood pressure Provider Name and Address Organization Details Last Updated DateTime 01/15/2021 165.1 cm 40.6 kg/m2 255184.5 4 g 146 mm[Hg] 81 mm[Hg] Charity Michelle [facility] 15:50:25 Date Recorded Body height Body mass index (BMI) Body weight Systolic blood pressure Diastolic blood pressure Provider Name and Address Organization Details Last Updated DateTime 03/01/2023 165.1 cm 40 kg/m2 316455.8 9 g 133 mm[Hg] 83 mm[Hg] Angie Vail [facility] 3 14:13:00 Date Recorded Systolic blood pressure Diastolic blood pressure Provider Name and Address Organization Details Last Updated DateTime 07/09/2022 122 mm[Hg] 78 mm[Hg] Nancy Barney, [facility]- [address], [place], [address], [facility] 07/09/2022 14:53:36 Social History Question Answer Notes LastModified by Organizat ion Details LastModified Time Tobacco Smoking Status Never Smoker Diamond Ricks null, [facility] 12/09/2020 16:33:45 If You Are , What Was Your Level Of Alcohol Consumption Prior To ? None [email or web address] Information not available 01/15/2021 Are You Blind Or Do You Have Difficulty Seeing? No [email or web address] Information n ot available 01/15/2021 What Is Your Level Of Caffeine Consumption? Occasional Information not available 01/15/2021 In The 14 Days Before Symptom Onset, Have You Had Close Contact With A Laboratory-confirm ed COVID-19 While That Case Was Ill? No [email or web address] Information n ot available 01/15/2021 In The 14 Days Before Symptom Onset, Have You Had Close Contact With A Person Who Is Under Investigation For COVID-19 While That Person Was Ill? No Information not available 01/15/2021 Have You Been To An Area Known To Be High Risk For COVID-19? No [email or web address] Information not available 01/15/2021 Are You Deaf Or Do You Have Serious Difficulty Hearing? No [email or web address] Information not available 01/15/2021 What Type Of Diet Are You Following? REGULAR [email or web address] Information n ot available 01/15/2021 Have You Ever Been Counseled For Unhealthy Alcohol Use? No [email or web address] Information not available 01/15/2021 Do You Use Your Seat Belt Or Car Seat Routinely? Yes Information not available 01/15/2021 Do You Have Smoke And Carbon Monoxide Detectors In Your Home? Yes [email or web address] Information not available 01/15/2021 Do You Use Sunscreen Routinely? Yes [email or web address] Information not available 01/15/2021 Has Tobacco Cessation Counseling Been Provided? No [email or web address] Information not available 01/15/2021 Do You Have Difficulty Walking Or Climbing Stairs? No Information not available 03/01/2023 Sex: Unknown Functional Status Question Answer Note LastModified by Organizat ion Details LastModified Time Do you use any illicit or recreational drugs? No [email or web address] Information not available 01/15/2021 Do you or have you ever used any other forms of tobacco or nicotine? No [email or web address] Information not available 01/15/2021 What is your level of alcohol consumption? Occasional [email or web address] Information not available 01/15/2021 Are you able to walk? YESWOREST [email or web address] Information not available 01/15/2021 Are you able to care for yourself? Yes Information n ot available 03/01/2023 Do you have difficulty dressing or bathing? No Information not available 03/01/2023 What is your exercise level? Occasional [email or web address] Information not available 01/15/2021 Mental Status Question Answer Note LastModified by Organization D etails LastModified Time Do you feel stressed (tense, restless, nervous, or anxious, or unable to sleep at night)? GL96096-5 [email or web address] Information not available 01/15/2021 Family History Relationship Description Onset Age of this Age Resolved Age Notes LastModified by Organization Details LastModified Time Maternal Grandmother Malignant tumor of colon [email or web address] Not available 2020 16:33:02 Maternal Grandmother Hypertensive disorder [email or web address] Not available 2020 16:33:24 Maternal Grandmother Diabetes mellitus [email or web address] Not available 2020 16:33:32 Maternal Uncle Malignant tumor of colon [email or web address] Not available 2020 16:33:08 Medical History Condition [...] SNOMED-CT Code Diagnosis ICD10 Code Diagnosis Note [id number] Clarita Ortiz CNM [place] [address] [address] 12/09/2020 16:21:17 12/09/2020 17:18:33 Hypothyroidism 90440388 E03.9 Has not had levels checked in about 1 year. Will check with [facility] panel. Gynecologi c examination 52868105 Z01.419 Suggested Calcium with Vitamin D 1200-1500m g daily. Patient advised to get an annual flu shot in the fall and she could obtain at [facility] or [facility] take care clinic. Also to obtain TDap [...] respond to this email. Menopausal flushing 1983 18532 N95.1 Will start with checking health panel with [facility]. Did discuss use of paxil. Pt would like to try something to help because she feels this is the cause of her sleep disturbanc e. RTC in 2 weeks to follow up on labs and discuss treatment further. Thyroid nodule 220696606 E04.1 U/S of thyroid ordered. Pt will call to schedule. [id number] Kika Pardo [facility] [address],[place] [address] 01/15/2021 15:30:23 01/17/2021 15:38:07 Human papillomavirus deoxyribonucleic acid detected, high risk on cervical specimen 545712587 R87.810 [id number] Nancy Barney [facility] [address],[place] [address] 01/15/2021 15:26:47 01/17/2021 15:24:14 [id number] Nancy Barney [place] [address],[place] [address] 07/09/2022 13:52:36 07/09/2022 15:07:05 Low grade squamous intraepithelial lesion on cervical Papanicolaou smear 8577116090 9105 R87.612 See procedure notes.Post -procedure instructio ns reviewed with understand ing verbalized .Will contact with results & next steps in plan of care. Counseled on Pap/HPV guidelines /Testing/R esults with understand ing verbalized .All questions answered to patient satisfacti on. Booklet & additional resources regarding pap smear/HPV/ Pap results given. [email or web address] w.cancer.g ov/types/c ervical/un sajiin g-abnormal -hpv-and-p ap-test-re sults/taee rstanding- cervical-c sabra.pdf [id number] RADHA Castro [place] [address] [address] 03/01/2023 13:59:55 03/02/2023 12:43:01 Gynecologic examination 15571288 Z01.419 Suggested Calcium with Vitamin D 1200-1500m g daily. Patient advised to get an annual flu shot in the fall and she could obtain at [facility] or [facility] care clinic. Also to obtain TDap vaccinatio [...] to papBlood STI declinedma mmogram order [facility] colonoscop yFrequent HSV outbreaks. Recently SA again and would like to restart suppressiv e therapy. R/B/A discussed. Rx sentUTD with PCPRTC in 1 year or sooner if needed Screening for malignant neoplasm of breast 962381489 Z12.39 Screening for malignant neoplasm of colon 324201864 Z12.11 Recurrent genital herpes simplex 020863057 A60.00 History of abnormal cervical Papanicolaou smear 794148058 Z87.42 Health Concerns Section Related Observation LastModified by Organization Detai ls LastModified Time None Recorded Concern Status LastModified by Organization Details LastModified Time None Recorded Advance Directives Directive None Recorded Payers Encounter Date Sequence Insurance Name Policy Number Policy Knox Covered Member ID Knox Member ID Guarantor Name 12/09/2020 1 [facility] [id number] Gay Randall-Alex mons [id number] Gay Randall Kourtney 01/15/2021 1 [facility] [id number] Gay Pereira-Alex mons [id number] Gay Randall Kourtney 01/15/2021 1 [facility] [id number] Gay Pereira-Alex mons [id number] Gay Pereira Kourtney 07/09/2022 1 [facility] [id number] Gay Pereira-Alex mons [id number] Gay Pereira Kourtney 03/01/2023 1 [facility] [id number] Gay Pereira-Alex mons [id number] Gay [facility] Notes Date Note Type Note Provider Name and Address Organization Details Recorded Time 12/09/2020 text/html Annual GYNReport ed bypatient.Menstrual cycle:amenorrhea d/t IUD Urinary symptoms:No hematuria; No incontinence Vulva:No genital lesion Vagina:Normal vaginal discharge Breast:No breast pain; No breast lump; No nipple discharge Sexual complaints:No sexual complaints [id number]|2025-01-24 17:07:00|2025-01-24 17:06:00|XMS_ITS|BKG DAEMON|External Medical Summaries|[id number]|" Continuity of Care Document (C-CDA R2.1) (Encounter date: 05/25/2017 10:53 AM) Created on: January 24, 2025 Gay Monroy : 1970 Sex: Female Author Organization [facility] Address [address] [place] [address] Phone Care Team Providers Care Boot And Shoe 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 Name Role Phone Unavailable Unavailable Unavailable Allergies, [...] Diagnoses Date Provider Providers Copied on Encounter [facility], [address], [place], [place], [address] , tel: [phone] [facility] No Information No Information OFFICE/OUTPA TIENT VISIT, [facility], [address], [place], [place], [address] , tel: [phone] [facility] ear (chief complaint) insomnia [...] 88 Payers Payer name Insurance type Covered republican ID Authoriza timiguel(s) [facility] CI [id number] Social History Type Description Quantity Date Captured Comments Alcohol Use Details Unknown Caffeine Use Details Unknown Tobacco Use Status No Information Smoking Status No Information Sex Female Chief Complaint And Reason For Visit No Information Reason For Referral Reason For Referral No Information Plan Of Treatment Date Type Action Status Referral [facility]erred To[facility] Ordered: Referrals: [facility]. Evaluate and treat Appointment date/timeframe: [...] She was also using Flonase. 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 She doesn't take any antihistamines. Functional Status Date Functional Assessmen t No Information Instructions Date Instruction Additional Infor mation Patient to wait unti l she is getting a little drowsy, then take Vistaril 25 mg-- one to two tablets at bedtime. Also no working in the bedroom, no caffeine after 12 pm, no TV in the bedroom. No exercise right before bed. Related to Insomnia I recommended patien t get lurr-gjw-tkblajl ear wax removal kit with bulb. Follow [...] (start - stop) Status Members No Information "
--- NOTE | 2025-01-24 17:46 | ED.GENADULT ---
HPI - General Adult General Chief complaint: Unspecified Stated complaint: tumor to forehead since 2012 Time Seen by Provider: 01/24/25 16:59 Source: patient Mode of arrival: EMS Limitations: no limitations History of Present Illness HPI narrative: Patient is a 54 y/o female who presents to the ED via EMS with report of a tumor to her head. 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 She states she has never seen anyone for this before as she has issues with transportation. She contacted EMS to bring her here today. She is unable to tell me why she wanted to be evaluated for this today, just repeatedly states that she wanted to get it checked out. Patient does not voice any other complaints or symptoms. Patient very resistant to conversation, repeatedly asking me why I am in the room. Refusing to speak to several RNs. Denies SI/HI. Related Data Home Medications Medication Instructions Recorded Confirmed Last Taken Type paroxetine HCl 20 mg tablet (Paxil) 20 mg PO DAILY 05/11/23 11/11/23 Unknown History zolpidem 10 mg tablet (Ambien) 10 mg PO QHS 05/11/23 11/11/23 Unknown History Allergies Allergy/AdvReac Type Severity Reaction Status Date / Time doxycycline Allergy Intermediate throat Verified 01/24/25 18:02 itching Review of Systems Review of Systems: All systems reviewed & are unremarkable except as noted in HPI. All systems reviewed & are unremarkable except as noted in HPI and below PMFSH Past Medical History Medical History Tobacco abuse Obese Encounter for screening colonoscopy Insomnia Anxiety MARAH (obstructive sleep apnea) Social History Social History Smoking status: Current every day smoker Substance use type: does not use Living arrangements: with family Gender identity (if verbalized by the patient): Female Exam Narrative: GENERAL: Well appearing, morbidly obese with BMI of 40.6, non-toxic, in no acute distress. HEAD: Normocephalic, atraumatic. RESPIRATORY: Airway patent, respirations nonlabored. CARDIOVASCULAR: Regular rate and rhythm MUSCULOSKELETAL: Moves all extremities. No gross deformities. SKIN: Warm, dry, normal color. NEURO: A&O X3. Speech clear. Cranial nerves II-XII grossly intact. Steady gait. No ataxic movements. No focal deficits. Moves all extremities equally. PSYCHIATRIC: Somewhat agitated and resistant/uncooperative with conversation. No evidence of psychosis, hallucinations, internal stimulation. Course Vital Signs Vital signs: Vital Signs Temperature 98.2 F 01/24/25 16:58 Pulse Rate 108 H 01/24/25 16:58 Respiratory Rate 20 01/24/25 16:58 Blood Pressure 155/101 H 01/24/25 16:58 Pulse Oximetry 100 01/24/25 16:58 Oxygen Delivery Room Air 01/24/25 16:58 Temperature 98.2 F 01/24/25 16:58 Pulse Rate 108 H 01/24/25 16:58 Respiratory Rate 20 01/24/25 16:58 Blood Pressure 155/101 H 01/24/25 16:58 Pulse Oximetry 100 01/24/25 16:58 Oxygen Delivery Room Air 01/24/25 16:58 Medical Decision Making MDM Narrative Medical decision making narrative: Patient presented to ED wanting to be evaluated for a self-reported brain tumor since 2012. She reports that she has not been evaluated for this since she was diagnosed. She denies any acute complaints and is unable/unwilling to tell me why she decided she wanted to be evaluated for this today. Vital signs are stable. She is grossly neurologically intact. Moves all extremities equally. Steady gait. Patient very resistant to conversation, does not want to speak to me or several other RNs. Repeatedly asking why I am in the room, asking me to come back later. Refusing to answer further questions. She did adamantly deny SI/HI to multiple RNs. She reportedly has history of schizophrenia. There is no evidence of acute psychosis at this time. After my initial evaluation, patient was witnessed ambulating with a steady gait out of the facility through the ambulate bay doors. This will be considered an elopement. Medical Records Medical records reviewed: Yes I reviewed the external patient's medical records. Vital Signs Vital Signs: Vital Signs Temperature 98.2 F 01/24/25 16:58 Pulse Rate 108 H 01/24/25 16:58 Respiratory Rate 01/24/25 16:58 Blood Pressure 155/101 H 01/24/25 16:58 Pulse Oximetry 100 01/24/25 16:58 Oxygen Delivery Room Air 01/24/25 16:58 Temperature 98.2 F 01/24/25 16:58 Pulse Rate 108 H 01/24/25 16:58 Respiratory Rate 20 01/24/25 16:58 Blood Pressure 155/101 H 01/24/25 16:58 Pulse Oximetry 100 01/24/25 16:58 Oxygen Delivery Room Air 01/24/25 16:58 Discharge Plan Discharge Clinical Impression: Encounter for medical assessment Patient Disposition: Elopement After Seen by Prov Patient Language: Japanese Prescriptions: No Action ibuprofen 600 mg tablet 600 mg PO TID PRN (Reason: pain) Qty: 30 0RF hydroxyzine HCl 25 mg tablet 25 mg PO QID PRN (Reason: anxiety) Qty: 20 0RF zolpidem [Ambien] 10 mg tablet 10 mg PO QHS paroxetine HCl [Paxil] 20 mg tablet 20 mg PO DAILY nitrofurantoin monohyd/m-cryst [Macrobid] 100 mg capsule 100 mg PO Q12H 5 Days Qty: 10 0RF Rx Instructions: must administer with a meal/food bacitracin 500 unit/gram ointment 1 applic topical TID Qty: 14 0RF bacitracin 500 unit/gram ointment 1 applic topical TID Qty: 14 0RF Follow-up/Referrals: Tania,Alize Bowser APRN [Primary Care Provider] -
--- NOTE | 2025-01-24 17:47 | PC.NURSE ---
1745-AFTER SPEAKING WITH PROVIDER, PATIENT SEEN WALKING OUT OF ER THROUGH AMBULANCE DOORS. PROVIDER AND CHARGE NURSE NOTIFIED.
== END 2025-01-24 17:45 | disposition left against medical advice (07) ==
PROVIDERS: Emergency Provider Physician Assistant; PCP Nurse Practitioner Family
DX: D49.6 Neoplasm of unspecified behavior of brain (principal); F20.9 Schizophrenia, unspecified
CPT/HCPCS: 99281

== ENCOUNTER 2025-01-24 18:01 | Emergency (ER) | payer MEDICAID, SELFPAY ==
--- NOTE | ~2025-01-24 | CT_ITS ---
CT brain wo con Ordering provider: Bright Murrieta MD History: 54 years Female with . headache . Comparison: None. Technique: CT of the head without contrast. Radiation reduction technique utilized.The dose-length pr oduct was 605.33 mGy-cm. FINDINGS: BRAIN PARENCHYMA AND CSF SPACES: No midline shift, mass effect or hemorrhage. The brain parenchyma a nd CSF spaces are otherwise normal. VISUALIZED PARANASAL SINUSES: Right maxillary sinus disease. Otherwise, Well aerated. MASTOIDS: Well aerated. BONES: The bones appear intact. SOFT TISSUES: Visualized nasopharynx is normal. Superficial soft tissues are normal. IMPRESSION: No acute intracranial findings. Reviewed, dictated and finalized at location A.
--- OUTSIDE RECORDS SUMMARY | 2025-01-24 18:03 | XMS_ITS | Continuity of Care Document ---
Author Organization [facility] Address [address] [place] [address] Phone Care Team Providers Care Filament Welder Name Role Phone Krzysztof Da Silva PA-C [...] Providers Copied on Encounter Office consultation, moderate [facility], [address] [place] [address], [id number], tel:[phone] [place] [facility] No Information 2 Rekha Blankenship. [address], [place], [id number] , . tel:[phone] [facility], [address] [place] [address], [id number], tel:[phone] [facility] No Information 2 Rekha Blankenship. [address], [place], [id number] , . tel:[phone] Referring Provider: Krzysztof Hunt, [address] [place] [address], [address] . tel:[phone] Family History Family Member Type Diagnosis Age At Onset No Information Payers Payer name Insurance type Covered alliance party ID Authormichaela ruiz(s) [employer] [place] [id number] Social History Type Description Quantity Date Captured [...]
--- OUTSIDE RECORDS SUMMARY | 2025-01-24 18:03 | XMS_ITS | Clinical Summary ---
Author Organization [facility] Address [address] [place] [address] Care Team Providers Care Cellar Packer Name Role Phone Umesh Taylor DO Primary Care Provider [phone] Allergies Active Allergy Reactions Criticality Noted Date [...] device) in place 11/11/2020 Panic 11/11/2020 Psychosis ([facility]) 02/08/2020 Insomnia 03/22/2019 Arthritis 01/19/2018 Schizoaffective disorder ([facility]) 01/19 Bipolar disorder ([facility]) 01/19/2018 Patellofemoral arthritis 09/17/2017 Knee pain [...] 2023-2 5 season) 2024 11/25/2020 PHQ-2 (Physician [place]) 09/13/2024 11/05/2023 Cervical Cancer Screening [facility] p [...] complete this topic Insurance MEDICAID Care Teams Cellar Packer Relationship Specialty Start Date End Date Umesh [place] [place] [address] PCP - General FAMILY PRACTICE 02/10/24
--- OUTSIDE RECORDS SUMMARY | 2025-01-24 18:03 | XMS_ITS | Continuity of Care Document ---
Author Organization [facility] Address [address] [place] [address] Phone Care Team Providers Care Rural Electrification Engineer Name Role Phone Magen ANGELES, Federico Unavailable Unavailable Procedures Procedure Date MRI upr extr joint, w/o contrast 2009 Office/outpatient visit,est, mod 2009 X-ray exam of wrist, complete 0 Advance Directives Directive Yes / No Effective Date File Name No Information Encounters Encounter Description Practice Location Reason(s) For Visit Diagnoses Date Provider Providers Copied on Encounter [facility], [address] [place] [address], [id number], tel:[phone] [facility] No Information 0 Magen Caballero. [address] [place] [address], [id number] , . [phone] Referring Provider: Federico Pillai, [address] [place] [address], [id number] . tel:[phone] Office/outpat ient visit,est, mod [facility], [address] [place] [address], [id number], tel:[phone] [facility] No Information 0 Marcus Bird. [address] [place] [address], [id number] , . [phone] Referring Provider: Eladio Echavarria, [address] [place], [address] . tel:[phone] Family History Family Member Type Diagnosis Age At Onset No Information Payers Payer name Insurance type Covered green party ID Authoriza ruiz(s) BCBS Of [facility] [id number] Social History Type Description Quantity Date Captured [...]
--- OUTSIDE RECORDS SUMMARY | 2025-01-24 18:03 | XMS_ITS | Continuity of Care Document ---
Author Organization [facility] Address [address] [place] [address] Phone Care Team Providers Care Planer Mill Grader Name Role Phone Unavailable Unavailable Unavailable Allergies, [...] Diagnoses Date Provider Providers Copied on Encounter [email or web address], [address], [place], [place], [id number] , [place] tel: [phone] [facility] No Information 7 No Information OFFICE/OUTPA TIENT VISIT, NEW [email or web address], [address], [place], [place], [id number] , [place] tel: [phone] [facility] ear (chief complaint) insomnia [...] type Covered alliance party ID Praveen melchor(s) [facility] CI [id number] Social History Type Description Quantity Date Captured Comments Alcohol Use Details Unknown Caffeine Use Details Unknown Tobacco Use Status No Information Smoking Status No Information Sex Female Chief Complaint And Reason For Visit No Information Reason For Referral Reason For Referral No Information Plan Of Treatment Date Type Action Status Referral Referred To: [facility] Ordered: Referrals: Behavioral Health. [facility] Behavioral Health. Evaluate and treat Appointment [...] She was also using Flonase. 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 Follow [...]
--- OUTSIDE RECORDS SUMMARY | 2025-01-24 18:03 | XMS_ITS | Clinical Summary ---
Author Organization [facility] Address [address] [place] [address] Care Team Providers Care Engraver Set Up Operator Name Role Phone Erika Hutson ZENIA-GENERATOR OPERATOR STRAIGHT BEVEL GEAR Primary Care Provider Source Comments [facility],non-owned Affiliates and Associated Physician Practices is amultiple site organization consisting of ambulatory clinics and hospital sitesin [place], [place], [place] and [place]. This disclosure is being madepursuant to the Care Everywhere program and may not contain all information available regarding this patient. Last updated 18.[facility] Allergies Active Allergy Reactions Criticality Noted Date [...] and heating? Not hard at all 01/03/2025 [facility] - Occupational Stress [...] any time in the past 12 m [facility], were you homeless or living in a long term (including now)? 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 Not on file Not [...] - 4.940 uIU/mL 01/04/2025 5:00 PM CDT [facility] Blood BLOOD SPECIMEN / Unknown Venipuncture / Unknown 01/04/2025 3:59 PM CDT 01/04/2025 4:15 PM CDT us Ambar Cerda MD LAB - CHEMISTRY ORDERABLES Fi nal Result [facility] [address] [place] [id number], [facility] [phone] * (ABNORMAL) HEMOGLOBIN A1C (01/04/2025 3:59 PM CDT) Hemoglobin A1c 5.7(H) <=5.6 % 01/05/2025 8:37 AM CDT [facility] Estimated Average Glucose 117 mg/dL 01/05/2025 8:37 AM CDT [facility] Comment: HbA1c Interpretation: Normal : < 5.7% Pre-diabetes: 5.7-6.4% Diabetes: Equal to or greater than 6.5% Test results diagnostic of diabetes should be repeated for confirmation. Treatment target values recommended by ADA and other clinical organizations should be used to evaluate metabolic control in patients. Reference: [place] Diabetes Association, Standards of Care in Diabetes [...] LAB - CHEMISTRY ORDERABLES Fi nal Result [address] [address] [phone] * LIPID PROFILE (01/04/2025 3:59 PM CDT) [facility] Cholesterol Total 141 <200 mg/dL 01/04/2025 4:40 PM [facility] HDL 45 >40 mg/dL 01/04/2025 4:40 PM [facility] Comment: ATP III Classification of HDL Cholesterol: <40 mg/dL: Considered a major risk factor. >60 mg/dL: Considered a negative risk factor. LDL Calculated 85 <100 mg/dL 01/04/2025 4:40 PM T [facility] Comment: ATP III Classification of LDL Cholesterol: <100 mg/dL: Optimal 100 - 129 mg/dL: Near Optimal/Above Optimal 130 - 159 mg/dL: Borderline High 160 - 189 mg/dL: High >190 mg/dL: Very High Triglycerides 53 <150 mg/dL 01/04/2025 4:40 PM T [facility] Comment: ATP III Classification of Triglycerides: <150 mg/dL: Normal 150 - 199 mg/dL: Borderline High 200 - 400 mg/dL: High >500 mg/dL: Very High Blood BLOOD SPECIMEN / Unknown Venipuncture / Unknown 01/04/2025 3:59 PM CDT 01/04/2025 4:16 PM CDT Ambar Cerda MD LAB - CHEMISTRY ORDERABLES Fi nal Result [facility] [address] [place] [address], [facility] [phone] * (ABNORMAL) CBC W AUTO DIFFERENTIAL (01/03/2025 3:46 AM CDT) WBC 7.3 4.0 - 10.7 x10E9/L 01/03/2025 4:03 AM [facility] RBC Count 3.44(L) 3.90 - 5.20 x10E12/L 01/03/2025 4:03 AM [facility] Hemoglobin 10.1(L) 11.9 - 15.8 g/dL 01/03/2025 4:03 AM [facility] Hematocrit 30.1(L) 34.8 - 46.1 % 01/03/2025 4:03 AM [facility] MCV 87.5 80.0 - 98.0 fL 01/03/2025 4:03 AM [facility] MCH 29.4 26.7 - 33.6 pg 01/03/2025 4:03 AM [facility] MCHC 33.6 31.7 - 36.3 g/dL 01/03/2025 4:03 AM [facility] RDW-CV 12.3 11.3 - 14.8 % 01/03/2025 4:03 AM [facility] Platelet Count 192 150 - 420 x10E9/L 01/03/2025 4:03 AM [facility] MPV 8.7 7.8 - 11.4 fL 01/03/2025 4:03 AM [facility] Neutrophil % 63.7 41.0 - 74.0 % 01/03/2025 4:03 AM [facility] Lymphocyte % 24.6 17.0 - 47.0 % 01/03/2025 4:03 AM T [facility] Monocyte % 9.7 3.0 - 11.0 % 01/03/2025 4:03 AM [facility] Eosinophil % 1.8 0.0 - 7.0 % 01/03/2025 4:03 AM [facility] Basophil % 0.1 0.0 - 1.6 % 01/03/2025 4:03 AM [facility] Immature Granulocytes % 0.1 0.0 - 1.0 % 01/03/2025 4:03 AM [facility] Neutrophil Absolute 4.62 1.60 - 7.50 x10E9/L 01/03/2025 4:03 AM [facility] Lymphocyte Absolute 1.78 1.00 - 4.40 x10E9/L 01/03/2025 4:03 AM [facility] Monocyte Absolute 0.70 0.15 - 1.00 x10E9/L 01/03/2025 4:03 AM [facility] Eosinophil Absolute 0.13 0.00 - 0.60 x10E9/L 01/03/2025 4:03 AM [facility] Basophil Absolute 0.01 0.00 - 0.13 x10E9/L 01/03/2025 4:03 AM [facility] Blood BLOOD SPECIMEN / Unknown Venipuncture / Unknown 01/03/2025 3:46 AM CDT 01/03/2025 3:50 AM CDT us Marilu Portillo MD LAB - HEMATOLOGY ORDERABLES Naheed ulloa Result [facility] [address] [place] [phone], [facility] [phone] * (ABNORMAL) COMPREHENSIVE METABOLIC PANEL (01/03/2025 3:46 AM CDT) BUN 13 7 - 26 mg/dL 01/03/2025 4:21 AM T [facility] Creatinine 0.88 0.56 - 0.96 mg/dL 01/03/2025 4:21 AM [facility] Sodium 140 136 - 145 mmol/L 01/03/2025 4:21 AM [facility] Potassium 4.2 3.5 - 4.5 mmol/L 01/03/2025 4:21 AM [facility] Chloride 108(H) 98 - 107 mmol/L 01/03/2025 4:21 AM [facility] CO2 22 22 - 29 mmol/L 01/03/2025 4:21 AM [facility] Glucose 98 70 - 99 mg/dL 01/03/2025 4:21 AM [facility] Calcium 8.2(L) 8.4 - 10.2 mg/dL 01/03/2025 4:21 AM [facility] Protein Total 6.6 6.0 - 8.3 g/dL 01/03/2025 4:21 AM [facility] Albumin 3.4 3.4 - 5.0 g/dL 01/03/2025 4:21 AM [facility] Bilirubin Total 0.2 0.2 - 1.2 mg/dL 01/03/2025 4:21 AM [facility] Alkaline Phosphatase 96 40 - 150 U/L 01/03/2025 4:21 AM [facility] ALT 16 5 - 55 U/L 01/03/2025 4:21 AM [facility] AST 24 5 - 34 U/L 01/03/2025 4:21 AM [facility] Anion Gap 10 6 - 16 01/03/2025 4:21 AM [facility] BUN/Creatinine Ratio 15 7 - 23 01/03/2025 4:21 AM [facility] Osmolality Calculated 290 275 - 295 mOsm/kg 01/03/2025 4:21 AM [facility] Albumin/Globulin Ratio 1.1 1.1 - 2.3 01/03/2025 4:21 AM [facility] eGFR by CKD-EPI 79(L) >=90 mL/min/1.7 3 m2 01/03/2025 4:21 AM [facility] Blood BLOOD SPECIMEN / Unknown Venipuncture / Unknown 01/03/2025 3:46 AM CDT 01/03/2025 3:50 AM CDT us Marilu Portillo MD LAB - CHEMISTRY ORDERABLES Final Result Performing Organization Address [facility] Co de Phone Number [address] [address], [facility] [phone] * ALCOHOL ETHYL BLOOD (01/03/2025 3:46 AM CDT) Ethanol (mg/dL) <10 <10 mg/dL 4:21 AM CDT [facility] Ethanol Calculated (g/dL) <0.010 <=0.010 g/dL 01/03/2025 4:21 AM T [facility] Blood BLOOD SPECIMEN / Unknown Venipuncture / Unknown 01/03/2025 3:46 AM CDT 01/03/2025 3:50 AM CDT Narrative [facility] - 01/03/2025 4:21 AM CDT Ethanol Interp <10: None Detected. Depression of FUNDING ANALYST: >100 mg/dl Potentially Critical: >250 mg/dl Potentially [...] CHEMISTRY ORDERABLES Final Result Performing Organization Address [facility] Co de Phone Number [address] [address], [facility] [phone] * URINE DRUG SCREEN IMMUNOASSAY (01/03/2025 3:15 AM CDT) Amphetamines Screen Urine Negative Negative: < 1000 ng/mL 01/03/2025 3:45 AM CDT [facility] Barbiturates Screen Urine Negative Negative: < 200 ng/mL 01/03/2025 3:45 AM CDT [facility] Benzodiazepine Screen Urine Negative Negative: < 200 ng/mL [facility]2025 [facility] Opi[facility] Urine Negative Negative: < 300 ng/mL 01/03/2025 3:45 AM [facility] Cocaine Metabolites Urine Negative Negative: < 300 ng/mL 01/03/2025 3:45 AM [facility] Phencyclidine Screen Urine Negative Negative: < 25 ng/ml 01/03/2025 3:45 AM T [facility] Cannabinoids Screen Urine Negative Negative: <50 ng/mL 01/03/2025 3:45 AM [facility] Methadone Screen Urine Negative Negative: < 300 ng/mL 01/03/2025 3:45 AM [facility] Fentanyl Screen Urine Negative Negative: <1.5 ng/mL 01/03/2025 3:45 AM [facility] Urine URINE / Unknown Collection / Unknown 01/03/2025 3:15 AM CDT 01/03/2025 3:17 AM CDT Narrative [facility] - 01/03/2025 3:45 AM CDT The Urine Toxicology Screening Panel does not screen for Propoxyphene, Meprobamate, Carisoprodol, Trazodone, pkyc-duf-fvcxyiu medications and/or volatiles (Acetone, Isopropanol, Methanol or Ethylene Glycol). Ethanol, Salicylate, Acetaminophen, Tricyclic Antidepressants and several therapeutic drugs may be individually assayed in serum or plasma specimen. Toxicology testing by the [facility] is an aid to medical diagnosis and treatment of patients. No documented chain of custody was maintained. Results are intended to be used for clinical purposes only. Marilu Portillo MD LAB - URINE CHEMISTRY ORDERABLES Final Result [facility] [address] [place] [address], [place] [phone] from Last 3 Months Insurance MEDICAID - OUT [place] [address] [place] [address] MEDICAID Advance Directives * Full Code (Latest Code Status on File) Date Activated Date Inactivated Comments 01/03/2025 10:45 AM 01/11/2025 2:19 PM * Full Code Date Activated Date Inactivated Comments 02/08/2020 2:09 PM 02/13/2020 1:34 PM Care Teams Engraver Set Up Operator Relationship Specialty Start Date End Date Erika Hutson, BUS AND RAIL OPERATOR-GENERATOR OPERATOR STRAIGHT BEVEL GEAR [address] [place] [id number] PCP - General 04/03/19
--- NOTE | 2025-01-24 18:17 | ED_ITS ---
HPI - General Adult General Chief complaint: Unspecified Stated complaint: tumor of my brain Time Seen by Provider: 01/24/25 18:08 History of Present Illness HPI narrative: Patient 54-year-old female presents emergency department with chief complaint of tumor and hydrate. Patient reports that she shaved her head and put cell for will on the scalp patient states that is irritated afterwards the patient states that she has a growth on her forehead and has had a since 2012 but is afraid did things are getting worse. The Related Data Home Medications Medication Instructions Recorded Confirmed Last Taken Type paroxetine HCl 20 mg tablet (Paxil) 20 mg PO DAILY 05/11/23 11/11/23 Unknown History zolpidem 10 mg tablet (Ambien) 10 mg PO QHS 05/11/23 11/11/23 Unknown History Allergies Allergy/AdvReac Type Severity Reaction Status Date / Time doxycycline Allergy Intermediate throat Verified 01/24/25 18:02 itching Review of Systems Review of Systems: A 10 system review of systems was completed on the patient and is negative except for what is stated in the HPI. Nursing and ancillary documentation was reviewed. FORMERLY [facility], [facility] Past Medical History Medical History Tobacco abuse Obese Encounter for screening colonoscopy Insomnia Anxiety MARAH (obstructive sleep apnea) Social History Social History Smoking status: Current every day smoker Substance use type: does not use Living arrangements: with family Gender identity (if verbalized by the patient): Female Exam Narrative: GENERAL: Well-appearing, well-nourished, and in no acute distress. HEAD: Normocephalic, atraumatic. EYES: PERRLA and EOMI. ENT: Nares clear, no rhinorrhea or epistaxis. Mucous membranes moist. NECK: Supple. CHEST: Clear to auscultation. No respiratory distress. HEART: Regular rate and rhythm. No murmur heard. Normal peripheral pulses. ABDOMEN: Soft, nontender, nondistended, normal active bowel sounds. EXTREMITIES: Normal range of motion. No edema. SKIN: Warm, dry, no rash. NEURO: No focal deficits. Alert and oriented x3. PSYCH: Normal mood and affect. Medical Decision Making MDM Narrative Medical decision making narrative: CT head showed no acute abnormalities Patient's scalp was cleaned and bacitracin was applied the patient is items resolve Discharge Plan Discharge Clinical Impression: Contact dermatitis of scalp Patient Disposition: Home Condition: Stable Instructions: Antibiotic Form, Contact Dermatitis (ED) Patient Language: Croatian Prescriptions: No Action ibuprofen 600 mg tablet 600 mg PO TID PRN (Reason: pain) Qty: 30 0RF hydroxyzine HCl 25 mg tablet 25 mg PO QID PRN (Reason: anxiety) Qty: 20 0RF zolpidem [Ambien] 10 mg tablet 10 mg PO QHS paroxetine HCl [Paxil] 20 mg tablet 20 mg PO DAILY nitrofurantoin monohyd/m-cryst [Macrobid] 100 mg capsule 100 mg PO Q12H 5 Days Qty: 10 0RF Rx Instructions: must administer with a meal/food bacitracin 500 unit/gram ointment 1 applic topical TID Qty: 14 0RF bacitracin 500 unit/gram ointment 1 applic topical TID Qty: 14 0RF Follow-up/Referrals: PHYSICIAN NOT ON STAFF,NONSTAFF [Primary Care Provider] - Time of Disposition: 18:48
[2025-01-24 18:18] VITALS: BP 138/87; PULSE 85; RESP 18; TEMP 37.2; O2SAT 97
--- OUTSIDE RECORDS SUMMARY | 2025-01-24 18:52 | XMS_ITS | Clinical Summary ---
Author Organization [facility] [employer] Address [address] [place] [address] Care Team Providers Care Principal Architect Name Role Phone Erika Hutson ZENIA-COST ACCOUNTING CLERK Primary Care Provider Source Comments [facility] [employer],non-owned Affiliates and Associated Physician Practices is amultiple site organization consisting of ambulatory clinics and hospital sitesin [place], [place], [place] and [place]. This disclosure is being madepursuant to the Care Everywhere program and may not contain all information available regarding this patient. Last updated 18.[facility] [employer] Allergies Active Allergy Reactions Criticality Noted Date [...] and heating? Not hard at all 01/03/2025 [facility] of Occupat ional Health - Occupational Stress [...] any time in the past 12 m [facility], were you homeless or living in a fpc (including now)? 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 Not on file Not on file Not [...] - 4.940 uIU/mL 01/04/2025 5:00 PM CDT [facility] Blood BLOOD SPECIMEN / Unknown Venipuncture / Unknown 01/04/2025 3:59 PM CDT 01/04/2025 4:15 PM CDT us Ambar Cerda MD LAB - CHEMISTRY ORDERABLES Fi nal Result [facility] [address] [place] [id number], [facility] [phone] * (ABNORMAL) HEMOGLOBIN A1C (01/04/2025 3:59 PM CDT) Hemoglobin A1c 5.7(H) <=5.6 % 01/05/2025 8:37 AM CDT [facility] Estimated Average Glucose 117 mg/dL 01/05/2025 8:37 AM CDT [facility] Comment: HbA1c Interpretation: Normal : < 5.7% Pre-diabetes: 5.7-6.4% Diabetes: Equal to or greater than 6.5% Test results diagnostic of diabetes should be repeated for confirmation. Treatment target values recommended by ADA and other clinical organizations should be used to evaluate metabolic control in patients. Reference: [place] [employer], Standards of Care in Diabetes -2020 In patients 70 years and older consider HbA1c target range of 7.0-7.5% (Reference: Raolu Valderrama et al. JAMDA. 2012) The Sebia assay for the measurement of HbA1c is a National Glycohemoglobin Standardization Program (NGSP) certified method. Blood BLOOD SPECIMEN / Unknown Venipuncture / Unknown 01/04/2025 3:59 PM CDT 01/04/2025 4:15 PM CDT Ambar Cerda MD LAB - CHEMISTRY ORDERABLES Fi nal Result [address] [id number] [phone] * LIPID PROFILE (01/04/2025 3:59 PM CDT) [facility] Cholesterol Total 141 <200 mg/dL 01/04/2025 4:40 PM [facility] HDL 45 >40 mg/dL 01/04/2025 4:40 PM [facility] Comment: ATP III Classification of HDL Cholesterol: <40 mg/dL: Considered a major risk factor. >60 mg/dL: Considered a negative risk factor. LDL Calculated 85 <100 mg/dL 01/04/2025 4:40 PM T [facility] Comment: ATP III Classification of LDL Cholesterol: <100 mg/dL: Optimal 100 - 129 mg/dL: Near Optimal/Above Optimal 130 - 159 mg/dL: Borderline High 160 - 189 mg/dL: High >190 mg/dL: Very High Triglycerides 53 <150 mg/dL 01/04/2025 4:40 PM T [facility] Comment: ATP III Classification of Triglycerides: <150 mg/dL: Normal 150 - 199 mg/dL: Borderline High 200 - 400 mg/dL: High >500 mg/dL: Very High Blood BLOOD SPECIMEN / Unknown Venipuncture / Unknown 01/04/2025 3:59 PM CDT 01/04/2025 4:16 PM CDT Ambar Cerda MD LAB - CHEMISTRY ORDERABLES Fi nal Result [facility] [address] [place] [phone], [facility] [phone] * (ABNORMAL) CBC W AUTO DIFFERENTIAL (01/03/2025 3:46 AM CDT) WBC 7.3 4.0 - 10.7 x10E9/L 01/03/2025 4:03 AM [facility] RBC Count 3.44(L) 3.90 - 5.20 x10E12/L 01/03/2025 4:03 AM [facility] Hemoglobin 10.1(L) 11.9 - 15.8 g/dL 01/03/2025 4:03 AM [facility] Hematocrit 30.1(L) 34.8 - 46.1 % 01/03/2025 4:03 AM [facility] MCV 87.5 80.0 - 98.0 fL 01/03/2025 4:03 AM [facility] MCH 29.4 26.7 - 33.6 pg 01/03/2025 4:03 AM [facility] MCHC 33.6 31.7 - 36.3 g/dL 01/03/2025 4:03 AM [facility] RDW-CV 12.3 11.3 - 14.8 % 01/03/2025 4:03 AM [facility] Platelet Count 192 150 - 420 x10E9/L 01/03/2025 4:03 AM [facility] MPV 8.7 7.8 - 11.4 fL 01/03/2025 4:03 AM [facility] Neutrophil % 63.7 41.0 - 74.0 % 01/03/2025 4:03 AM [facility] Lymphocyte % 24.6 17.0 - 47.0 % 01/03/2025 4:03 AM T [facility] Monocyte % 9.7 3.0 - 11.0 % 01/03/2025 4:03 AM [facility] Eosinophil % 1.8 0.0 - 7.0 % 01/03/2025 4:03 AM [facility] Basophil % 0.1 0.0 - 1.6 % 01/03/2025 4:03 AM [facility] Immature Granulocytes % 0.1 0.0 - 1.0 % 01/03/2025 4:03 AM [facility] Neutrophil Absolute 4.62 1.60 - 7.50 x10E9/L 01/03/2025 4:03 AM [facility] Lymphocyte Absolute 1.78 1.00 - 4.40 x10E9/L 01/03/2025 4:03 AM [facility] Monocyte Absolute 0.70 0.15 - 1.00 x10E9/L 01/03/2025 4:03 AM [facility] Eosinophil Absolute 0.13 0.00 - 0.60 x10E9/L 01/03/2025 4:03 AM [facility] Basophil Absolute 0.01 0.00 - 0.13 x10E9/L 01/03/2025 4:03 AM [facility] Blood BLOOD SPECIMEN / Unknown Venipuncture / Unknown 01/03/2025 3:46 AM CDT 01/03/2025 3:50 AM CDT us Marilu Portillo MD LAB - HEMATOLOGY ORDERABLES Naheed ulloa Result [facility] [address] [place] [phone], [facility] [phone] * (ABNORMAL) COMPREHENSIVE METABOLIC PANEL (01/03/2025 3:46 AM CDT) BUN 13 7 - 26 mg/dL 01/03/2025 4:21 AM T [facility] Creatinine 0.88 0.56 - 0.96 mg/dL 01/03/2025 4:21 AM [facility] Sodium 140 136 - 145 mmol/L 01/03/2025 4:21 AM [facility] Potassium 4.2 3.5 - 4.5 mmol/L 01/03/2025 4:21 AM [facility] Chloride 108(H) 98 - 107 mmol/L 01/03/2025 4:21 AM [facility] CO2 22 22 - 29 mmol/L 01/03/2025 4:21 AM [facility] Glucose 98 70 - 99 mg/dL 01/03/2025 4:21 AM [facility] Calcium 8.2(L) 8.4 - 10.2 mg/dL 01/03/2025 4:21 AM [facility] Protein Total 6.6 6.0 - 8.3 g/dL 01/03/2025 4:21 AM [facility] Albumin 3.4 3.4 - 5.0 g/dL 01/03/2025 4:21 AM [facility] Bilirubin Total 0.2 0.2 - 1.2 mg/dL 01/03/2025 4:21 AM [facility] Alkaline Phosphatase 96 40 - 150 U/L 01/03/2025 4:21 AM [facility] ALT 16 5 - 55 U/L 01/03/2025 4:21 AM [facility] AST 24 5 - 34 U/L 01/03/2025 4:21 AM [facility] Anion Gap 10 6 - 16 01/03/2025 4:21 AM [facility] BUN/Creatinine Ratio 15 7 - 23 01/03/2025 4:21 AM [facility] Osmolality Calculated 290 275 - 295 mOsm/kg 01/03/2025 4:21 AM [facility] Albumin/Globulin Ratio 1.1 1.1 - 2.3 01/03/2025 4:21 AM [facility] eGFR by CKD-EPI 79(L) >=90 mL/min/1.7 3 m2 01/03/2025 4:21 AM [facility] Blood BLOOD SPECIMEN / Unknown Venipuncture / Unknown 01/03/2025 3:46 AM CDT 01/03/2025 3:50 AM CDT us Marilu Portillo MD LAB - CHEMISTRY ORDERABLES Final Result Performing Organization Address [facility] Co de Phone Number [address] [address], [facility] [phone] * ALCOHOL ETHYL BLOOD (01/03/2025 3:46 AM CDT) Ethanol (mg/dL) <10 <10 mg/dL 4:21 AM CDT [facility] Ethanol Calculated (g/dL) <0.010 <=0.010 g/dL 01/03/2025 4:21 AM T [facility] Blood BLOOD SPECIMEN / Unknown Venipuncture / Unknown 01/03/2025 3:46 AM CDT 01/03/2025 3:50 AM CDT Narrative [facility] - 01/03/2025 4:21 AM CDT Ethanol Interp <10: None Detected. Depression of TEACHER PHYSICALLY IMPAIRED: >100 mg/dl Potentially Critical: >250 mg/dl Potentially [...] CHEMISTRY ORDERABLES Final Result Performing Organization Address [facility] Co de Phone Number [address] [address], [facility] [phone] * URINE DRUG SCREEN IMMUNOASSAY (01/03/2025 3:15 AM CDT) Amphetamines Screen Urine Negative Negative: < 1000 ng/mL 01/03/2025 3:45 AM CDT [facility] Barbiturates Screen Urine Negative Negative: < 200 ng/mL 01/03/2025 3:45 AM CDT [facility] Benzodiazepine Screen Urine Negative Negative: < 200 ng/mL [facility] Opi[facility] Urine Negative Negative: < 300 ng/mL 01/03/2025 3:45 AM [facility] Cocaine Metabolites Urine Negative Negative: < 300 ng/mL 01/03/2025 3:45 AM [facility] Phencyclidine Screen Urine Negative Negative: < 25 ng/ml 01/03/2025 3:45 AM T [facility] Cannabinoids Screen Urine Negative Negative: <50 ng/mL 01/03/2025 3:45 AM [facility] Methadone Screen Urine Negative Negative: < 300 ng/mL 01/03/2025 3:45 AM [facility] Fentanyl Screen Urine Negative Negative: <1.5 ng/mL 01/03/2025 3:45 AM [facility] Urine URINE / Unknown Collection / Unknown 01/03/2025 3:15 AM CDT 01/03/2025 3:17 AM CDT Narrative [facility] - 01/03/2025 3:45 AM CDT The Urine Toxicology Screening Panel does not screen for Propoxyphene, Meprobamate, Carisoprodol, Trazodone, homg-pgr-ngqoyve medications and/or volatiles (Acetone, Isopropanol, Methanol or Ethylene Glycol). Ethanol, Salicylate, Acetaminophen, Tricyclic Antidepressants and several therapeutic drugs may be individually assayed in serum or plasma specimen. Toxicology testing by the [facility] is an aid to medical diagnosis and treatment of patients. No documented chain of custody was maintained. Results are intended to be used for clinical purposes only. Marilu Portillo MD LAB - URINE CHEMISTRY ORDERABLES Final Result [facility] [address] [place] [address], [place] [phone] from Last 3 Months Insurance MEDICAID - OUT OF [place] [address] [place] [address] MEDICAID Advance Directives * Full Code (Latest Code Status on File) Date Activated Date Inactivated Comments 01/03/2025 10:45 AM 01/11/2025 2:19 PM * Full Code Date Activated Date Inactivated Comments 02/08/2020 2:09 PM 02/13/2020 1:34 PM Care Teams Principal Architect Relationship Specialty Start Date End Date Erika Hutson, COMPUTING SYSTEMS MECHANIC-COST ACCOUNTING CLERK [address] [place] [id number] PCP - General 04/03/19
--- OUTSIDE RECORDS SUMMARY | 2025-01-24 18:52 | XMS_ITS | Continuity of Care Document ---
Author Organization [facility] Address [address] [place] [address] Phone Care Team Providers Care College And Career Counselor Name Role Phone Krzysztof Da Silva PA-C [...] Providers Copied on Encounter Office consultation, moderate [facility], [address] [place] [address], [id number], tel:[phone] [place] [facility] No Information 2 Rekha Blankenship. [address], [place], [id number] , . tel:[phone] [facility], [address] [place] [address], [id number], tel:[phone] [facility] No Information 2 Rekha Blankenship. [address], [place], [id number] , . tel:[phone] Referring Provider: Krzysztof Hunt, [address] [place] [address], [id number] . tel:[phone] Family History Family Member Type Diagnosis Age At Onset No Information Payers Payer name Insurance type Covered republican ID Authormichaela ruiz(s) [employer] CI [id number] Social History Type Description Quantity Date Captured [...]
--- OUTSIDE RECORDS SUMMARY | 2025-01-24 18:52 | XMS_ITS | Clinical Summary ---
Author Organization [facility] Address [address] [place] [address] Care Team Providers Care Department Helper Name Role Phone Umesh Taylor DO Primary Care Provider [phone] Allergies Active Allergy Reactions Criticality Noted Date [...] device) in place 11/11/2020 Panic 11/11/2020 Psychosis ([facility]) 02/08/2020 Insomnia 03/22/2019 Arthritis 01/19/2018 Schizoaffective disorder ([facility]) 01/19 Bipolar disorder ([facility]) 01/19/2018 Patellofemoral arthritis 09/17/2017 Knee [...] 2023-2 5 season) 2024 11/25/2020 PHQ-2 (Physician [place]) 09/13/2024 11/05/2023 Cervical Cancer Screening [facility] p [...] complete this topic Insurance MEDICAID Care Teams Department Helper Relationship Specialty Start Date End Date Umesh Taylor [place] [place] [address] PCP - General FAMILY PRACTICE 02/10/24
--- OUTSIDE RECORDS SUMMARY | 2025-01-24 18:52 | XMS_ITS | Continuity of Care Document ---
Author Organization [facility] Address [address] [place] [address] Phone Care Team Providers Care Radar Technician Name Role Phone Magen ANGELES, Federico Unavailable Unavailable Procedures Procedure Date MRI upr extr joint, w/o contrast 2009 Office/outpatient visit,est, mod 2009 X-ray exam of wrist, complete 0 Advance Directives Directive Yes / No Effective Date File Name No Information Encounters Encounter Description Practice Location Reason(s) For Visit Diagnoses Date Provider Providers Copied on Encounter [facility], [address] [place] [address], [id number], tel:[phone] [facility] No Information 0 Magen Caballero. [address] [place] [address], [id number] , . [phone] Referring Provider: Federico Pillai, [address] [place] [address], [id number] . tel:[phone] Office/outpat ient visit,est, mod [facility], [address] [place] [address], [id number], tel:[phone] [facility] No Information 0 Marcus Bird. [address] [place] [address], [id number] , . [phone] Referring Provider: Eladio Echavarria, [address] [place], [address] . tel:[phone] Family History Family Member Type Diagnosis Age At Onset No Information Payers Payer name Insurance type Covered democrat ID Authoriza ruiz(s) BCBS Of [facility] [id number] Social History Type Description Quantity Date Captured [...]
--- OUTSIDE RECORDS SUMMARY | 2025-01-24 18:52 | XMS_ITS | Continuity of Care Document ---
Author Organization [facility] Address [address] [place] [address] Phone Care Team Providers Care Injury Prevention Coordinator Name Role Phone Unavailable Unavailable Unavailable Allergies, [...] Diagnoses Date Provider Providers Copied on Encounter [facility], [address], [place], [place], [id number] , [place] tel: [phone] [facility] No Information 7 No Information OFFICE/OUTPA TIENT VISIT, NEW [facility], [address], [place], [place], [id number] , [place] tel: [phone] [facility] ear (chief complaint) insomnia [...] 88 Payers Payer name Insurance type Covered constitution party ID Praveen melchor(s) [facility] CI [id number] Social History Type Description Quantity Date Captured Comments Alcohol Use Details Unknown Caffeine Use Details Unknown Tobacco Use Status No Information Smoking Status No Information Sex Female Chief Complaint And Reason For Visit No Information Reason For Referral Reason For Referral No Information Plan Of Treatment Date Type Action Status Referral Referred To: [facility] Ordered: Referrals: Behavioral Health. [facility]. Evaluate and treat Appointment [...] She was also using Flonase. 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 [...] to Insomnia I recommended patien t get oqpo-vpq-[id number] ear wax removal kit with bulb. Follow [...]
== END 2025-01-24 18:52 | disposition home or self-care (01) ==
PROVIDERS: Emergency Provider Emergency Medicine
DX: L25.9 Unspecified contact dermatitis, unspecified cause (principal); G47.33 Obstructive sleep apnea (adult) (pediatric); F41.9 Anxiety disorder, unspecified; F17.200 Nicotine dependence, unspecified, uncomplicated
CPT/HCPCS: 70450; 99284

== ENCOUNTER 2025-01-31 23:59 | Emergency (ER) | payer MEDICAID, SELFPAY ==
[2025-02-01 00:01] VITALS: BP 159/99; PULSE 104; RESP 19; TEMP 36.2; O2SAT 99
--- OUTSIDE RECORDS SUMMARY | 2025-02-01 00:01 | XMS_ITS | Data Portability ---
Author Organization [facility] [place] Address [address] [place] [address] Care Team Providers Care Roustabout Crew Leader Name Role Phone CARLINE SANCHEZ Primary Care [...] Lab CMP, serum or plasma 2020 021 [email or web address] [facility] ([facility]), [address], [facility] [address], [place], [address], 17:52:21 lipid panel, serum 2020 021 [email or web address] [facility] (Lab), [address], [place], [address], 1 17:52:21 TSH, serum or plasma 2020 021 [email or web address] [facility] (Lab), [address], [place], [address], 1 17:52:21 vitamin D, 25-hydro xy, total, serum 2020 021 [facility] (Lab), [address], [place], [address], 1 17:52:[address] referral - Screenin g Colonosc opyPleas e contact this patient to schedule an appointm ent.If you have any question s, please call [phone]. ank francisca,Kapil braga, Referral 's 2022 023 [facility], [address], [address], [place], [address], 3 17:15:14 Procedures None recorded . Surgeries None recorded . Imaging MAMMO, screenin g, digital, bilatera l 2022 023 [facility], [address], [place], [address], 4 12:12:30 US, thyroid 2020 021 layran [facility], [address], [place], [address], 1 15:55:28 Medication Orders Valtrex 500 mg tablet 2022 023 [id number], [address] , [place], [place], [id number], 3 14:40:14 Patient TargetsNo targets recorded. Patient InstructionsNo instructions recorded. 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 Referral for Screening for malignant neoplasm of colon Screening Colonoscopy Screening ColonoscopyPlease contact this patient to schedule an appointment.If you have any questions, please call [phone].Thank you,Karrie, Referral's Referring Physician: Magali Bourgeois, ORDER SCHEDULE CLERK, Encounter Date: 03/01/2023 Results Created Date Observation Date Name Description Value Unit Range Abnormal Flag Note LastModifiedBy Organization Detail LastModifiedTime 12/10/19 21 12/09/2020 pap, IG Pap test SEE RESULT S BELOW CASE REPOR T: Cytol ogy Gynec ologi rajendra Repor t Case: [id number] Autho gerri grijalva Provi neptali: Clarita [...] ous Intra epith elial Lesio n Elect [facility] tonya d by Naomie Farris, CT on [...] as clini latonia hunt nted. Not Available [facility] (Lab) [address], [place], [address], 12/11/2020 18:06:14 01/16/20 21 01/15/2021 surgi rajendra patho logy study surgical pathology ([facility]) SEE RESULT S BELOW CASE REPOR T: [...] Gross ed by Akash Montes Not Available [facility] (Lab) [address], [place], [address], 01/16/2021 16:07:00 01/16/20 21 01/15/2021 pregn tri test, urine HCG negati ve Not Available [facility] [address], [place], [address], 01/15/2021 16:16:47 07/09/20 22 07/09/2022 SURGI RAJENDRA PATHO LOGY surgical pathology SEE RESULT S BELOW CASE REPOR T: Surgi rajendra Patho logy Repor t Case: [id number] Autho gerri grijalva Provi neptali: Teodoro Rm Colle cted: 07/09 1712 [employer] Order ing Locat ion: [place] Patho log[facility] [...] Gross ed by Maya partida Not Available [facility]ious [facility] [address] [place], [address], 07/10/2022 12:59:45 07/09/20 22 07/09/2022 IMAGE GUIDE D PAP AND HPV REGAR DLESS image guided Pap, HPV regardless of Pap result SEE RESULT S BELOW abnormal CASE REPOR T: Cytol ogy Gynec ologi rajendra Repor t Case: [id number] Autho gerri grijalva Provi neptali: Du corona , Yue Guadalupe cted: 07/09 1709 [employer] MECH[employer] Order ing Locat ion: [place] Patho logy [...] patie nt consi derat ions. Not Available [facility] (Lab) [address], [place], [address], 07/15/2022 13:45:26 03/01/20 23 03/01/2023 IMAGE GUIDE [...] as clini [place] hunt nted. Not Available [facility] (Lab) [address], [place], [address], 03/03/2023 20:42:01 10/12/19 24 10/09/2023 MAMMO , scree amarjit, bilat eral No observ ation record ed. [email or web address] [facility] [address], [place], [address], 10/13/2023 12:18:01 11/08/19 24 11/08/2023 MAMMO , diagn ostic , digit al, bilat eral No observ ation record ed. SELMA [facility] [address], [place], [address], 12/02/2023 15:25:00 Result Notes None recorded. Problems Name Problem SNOMED Code Status Onset Date Resolution Date Notes Provider Name and Address Organization Details Recorded Time Clinical finding Completed 201812/09/2020 Presence of (intraute rine) contracep tive device;Re corded Elsewhere : No Locati on: [facility] So urce: EHR Chron ic: N Practic e ID: [id number] Bill able Time: 09:15:00 AM Diamond amaro [facility] 16:27:43 Emotional state finding Completed 201812/09/2020 Anxiety depressio n;Recorde d Elsewhere : No Locati on: [facility] So urce: EHR Chron ic: N Practic e ID: [id number] Bill able Time: 01:00:00 PM Diamond amaro [facility] 16:27:46 Insertion of intrauter ine contracep tive device Completed 201812/09/2020 Encounter for insertion of intrauter ine contracep tive device;Re corded Elsewhere : No Locati on: [facility] So urce: EHR Chron ic: N Practic e ID: [id number] Bill able Time: 01:30:00 PM Diamond amaro [facility] 16:27:47 Education Completed 201812/09/2020 Encounter for other general counselin g and advice on contracep tion;Jean-Paul rded Elsewhere : No Locati on: [facility] So urce: EHR Chron ic: N Practic e ID: [id number] Bill able Time: 01:00:00 PM Diamond amaro [facility] 16:27:45 Removal of intrauter ine device Completed 201812/09/2020 Encounter for removal of intrauter ine contracep tive device;Pr actice ID: [id number] Diamond amaro, [facility] 16:27:49 Problem Notes None recorded. Procedures Surgical History Date Name Laterality Status Provider Name and Address Organization Details Recorded Time 07/09/20 22 Colposcopy completed Nancy Barney [facility]- [address], [place], [address], [facility] 07/09/2022 14:55:15 07/09/20 22 Date of Last Pap Smear completed Angie Vail [facility] 03/01/2023 14:13:40 01/16/20 21 Colposcopy completed Kika Pardo CNM [address], [place], [address], [facility] 01/15/2021 16:23:20 01/16/20 21 Colposcopy completed Charity Michelle [facility] 01/15/2021 15:53:19 01/16/20 21 Colposcopy completed Alyssa Lowry [facility] 07/03/2022 13:18:09 05/10/19 97 section completed Charity Michelle [facility] 01/15/2021 15:55:12 09/13/18 83 Hernia repair w/mesh completed Charity Michelle [facility] 01/15/2021 16:16:24 Imaging Results Imaging Date Name Status LastModified by Organiz ation Details LastModified Time 10/09/2023 MAMMO, screening, bilateral completed [email or web address] [facility] [address] [facility], [place], [address], 10/13/2023 12:18:01 11/08/2023 MAMMO, diagnostic, digital, bilateral completed [facility] [address], [place], [address], 12/02/2023 15:25:00 Procedure Notes None recorded. Medical Equipment None Reported. Allergies Allergen ID Allergen Name Allergen Category Reaction Reaction Severity Criticality Documentation Date Start Date Code Code System Note Provider Name and Address Organization Details Recorded Time 03602 doxycycli ne Not available Not available Not available Not available 08/30/2020 3640 RxNorm Comme nt: [facility]; Not Available [facility] 0 14:24:24 Medications Name Sig Start Date [...] Prescrib ed Elsewher e: Yes Loca tion: [facility] odify By: estelle zamudio DateTime : [...] Updated DateTime 12/09/2020 165.1 cm 40.1 kg/m2 533166.7 6 g 138 mm[Hg] 76 mm[Hg] Diamond Ricks [facility] 1 16:41:34 Date Recorded Body height Provider Name an d Address Organization Details Last Updated DateTime 01/15/2021 165.1 cm Alyssa Lowry [facility] 01/14/2021 22:57:29 Date Recorded Body height Body mass index (BMI) Body weight Systolic blood pressure Diastolic blood pressure Provider Name and Address Organization Details Last Updated DateTime 01/15/2021 165.1 cm 40.6 kg/m2 828747.5 4 g 146 mm[Hg] 81 mm[Hg] Charity Michelle [facility] 15:50:25 Date Recorded Body height Body mass index (BMI) Body weight Systolic blood pressure Diastolic blood pressure Provider Name and Address Organization Details Last Updated DateTime 03/01/2023 165.1 cm 40 kg/m2 252092.8 9 g 133 mm[Hg] 83 mm[Hg] Angie Vail [facility] 3 14:13:00 Date Recorded Systolic blood pressure Diastolic blood pressure Provider Name and Address Organization Details Last Updated DateTime 07/09/2022 122 mm[Hg] 78 mm[Hg] Nancy Barney, [facility]- [address], [place], [address], [facility] 07/09/2022 14:53:36 Social History Question Answer Notes LastModified by Organizat ion Details LastModified Time Tobacco Smoking Status Never Smoker Diamond Ricks null, [facility] 12/09/2020 16:33:45 If You Are , What Was Your Level Of Alcohol Consumption Prior To ? None [email or web address] Information not available 01/15/2021 Are You Blind Or Do You Have Difficulty Seeing? No [email or web address] Information n ot available 01/15/2021 What Is Your Level Of Caffeine Consumption? Occasional Information not available 01/15/2021 In The 14 Days Before Symptom Onset, Have You Had Close Contact With A Laboratory-confirm ed COVID-19 While That Case Was Ill? No [email or web address] Information n ot available 01/15/2021 In The 14 Days Before Symptom Onset, Have You Had Close Contact With A Person Who Is Under Investigation For COVID-19 While That Person Was Ill? No [email or web address] Information not available 01/15/2021 Have You Been To An Area Known To Be High Risk For COVID-19? No [email or web address] Information not available 01/15/2021 Are You Deaf Or Do You Have Serious Difficulty Hearing? No [email or web address] Information not available 01/15/2021 What Type Of Diet Are You Following? REGULAR [email or web address] Information n ot available 01/15/2021 Have You Ever Been Counseled For Unhealthy Alcohol Use? No [email or web address] Information not available 01/15/2021 Do You Use Your Seat Belt Or Car Seat Routinely? Yes [email or web address] Information not available 01/15/2021 Do You Have Smoke And Carbon Monoxide Detectors In Your Home? Yes [email or web address] Information not available 01/15/2021 Do You Use Sunscreen Routinely? Yes [email or web address] Information not available 01/15/2021 Has Tobacco Cessation Counseling Been Provided? No [email or web address] Information not available 01/15/2021 Do You Have Difficulty Walking Or Climbing Stairs? No Information not available 03/01/2023 Sex: Unknown Functional Status Question Answer Note LastModified by Organizat ion Details LastModified Time Do you use any illicit or recreational drugs? No [email or web address] Information not available 01/15/2021 Do you or have you ever used any other forms of tobacco or nicotine? No [email or web address] Information not available 01/15/2021 What is your level of alcohol consumption? Occasional [email or web address] Information not available 01/15/2021 Are you able to walk? YESWOREST [email or web address] Information not available 01/15/2021 Are you able to care for yourself? Yes Information n ot available 03/01/2023 Do you have difficulty dressing or bathing? No Information not available 03/01/2023 What is your exercise level? Occasional Information not available 01/15/2021 Mental Status Question Answer Note LastModified by Organization D etails LastModified Time Do you feel stressed (tense, restless, nervous, or anxious, or unable to sleep at night)? [id number] Information not available 01/15/2021 Family History Relationship Description Onset Age of this Age Resolved Age Notes LastModified by Organization Details LastModified Time Maternal Grandmother Malignant tumor of colon [email or web address] Not available 2020 16:33:02 Maternal Grandmother Hypertensive disorder [email or web address] Not available 2020 16:33:24 Maternal Grandmother Diabetes mellitus [email or web address] Not available 2020 16:33:32 Maternal Uncle Malignant tumor of colon Not available 2020 16:33:08 Medical History Condition [...] SNOMED-CT Code Diagnosis ICD10 Code Diagnosis Note [id number] Clarita Ortiz CNM [facility] [address] [address] 12/09/2020 16:21:17 12/09/2020 17:18:33 Hypothyroidism 57332338 E03.9 Has not had levels checked in about 1 year. Will check with [employer] health panel. Gynecologi c examination 64797555 Z01.419 Suggested Calcium with Vitamin D 1200-1500m g daily. Patient advised to get an annual flu shot in the fall and she could obtain at [facility] or [facility] take care clinic. Also to obtain [...] respond to this email. Menopausal flushing 1983 94989 N95.1 Will start with checking health panel with tsh first. Did discuss use of paxil. Pt would like to try something to help because she feels this is the cause of her sleep disturbanc e. RTC in 2 weeks to follow up on labs and discuss treatment further. Thyroid nodule 804862839 E04.1 U/S of thyroid ordered. Pt will call to schedule. [id number] Kika Pardo [facility] [address] [address] 01/15/2021 15:30:23 01/17/2021 15:38:07 Human papillomavirus deoxyribonucleic acid detected, high risk on cervical specimen 363291597 R87.810 48737 Nancy Barney [facility] [address],[place] [address] 01/15/2021 15:26:47 01/17/2021 15:24:14 [id number] Nancy Barney [place] [address],[place] [address] 07/09/2022 13:52:36 07/09/2022 15:07:05 Low grade squamous intraepithelial lesion on cervical Papanicolaou smear 4664038391 9105 R87.612 See procedure notes.Post -procedure instructio ns reviewed with understand ing verbalized .Will contact with results & next steps in plan of care. Counseled on Pap/HPV guidelines /Testing/R esults with understand ing verbalized .All questions answered to patient satisfacti on. Booklet & additional resources regarding pap smear/HPV/ Pap results given. [email or web address] w.cancer.g ov/types/c ervical/un derrejiin g-abnormal -hpv-and-p ap-test-re sults/taee rstanding- cervical-c sabra.pdf [id number] RADHA Castro [facility] [place] [address] [address] 03/01/2023 13:59:55 03/02/2023 12:43:01 Gynecologic examination 33356895 Z01.419 Suggested Calcium with Vitamin D 1200-1500m g daily. Patient advised to get an annual flu shot in the fall and she could obtain at [facility] or [facility] care clinic. Also to obtain TDap [...] to papBlood STI declinedma mmogram order givenref[facility] colon[facility]op yFrequent HSV outbreaks. Recently SA again and would like to restart suppressiv e therapy. R/B/A discussed. Rx sentUTD with PCPRTC in 1 year or sooner if needed Screening for malignant neoplasm of breast 157464802 Z12.39 Screening for malignant neoplasm of colon 306204604 Z12.11 Recurrent genital herpes simplex 599873385 A60.00 History of abnormal cervical Papanicolaou smear 597350610 Z87.42 Health Concerns Section Related Observation LastModified by Organization Detai ls LastModified Time None Recorded Concern Status LastModified by Organization Details LastModified Time None Recorded Advance Directives Directive None Recorded Payers Encounter Date Sequence Insurance Name Policy Number Policy Knox Covered Member ID Knox Member ID Guarantor Name 12/09/2020 1 [facility] [id number] Gay Pereira-Alex mons [id number] Gay Randall Kourtney 01/15/2021 1 [facility] [id number] Gay Pereira-Alex mons [id number] Gay Randall Kourtney 01/15/2021 1 [facility] [id number] Gay Pereira-Alex mons [id number] Gay Pereira Kourtney 07/09/2022 1 [facility] [id number] Gay Pereira-Alex mons [id number] Gay Randall Kourtney 03/01/2023 1 [facility] [id number] Gay Pereira-Alex mons [id number] [facility] Notes Date Note Type Note Provider Name [...] had tsh in over 1 year. Clarita amaro, [facility] 12/09/2020 17:17:19 01/15/2021 text/html normal pap +HPV 16, reviewed pap, pathology, colposcopy, consent signed Kika Pardo CNM [address], [place], [address], [facility] 01/24/2021 08:57:34 07/09/2022 text/html Here today for R /P Colpo with pap smear per recommendations from 2020. Nancy Barney, [facility]- [address], [place], [address], [facility] 07/09/2022 14:56:38 03/01/2023 text/html Annual GYNReport [...] regular mammograms starting age 40 RADHA Castro [address], [place], [address], [facility] 03/01/2023 17:25:10 OBGyn Episode Ob Episode Information Episode Created Date Number of Fetuses Patient Bloodtype Patient rh Status Prepregnancy Weight lbs Domestic Partner Domestic Partner Phone Father Name File Clerk Status 12/10/19 21 1 CLOSED Fetus Data [...] Domestic Partner Domestic Partner Phone Father Name File Clerk Status 12/10/19 21 1 CLOSED Fetus Data [...] Domestic Partner Domestic Partner Phone Father Name File Clerk Status 12/10/19 21 1 CLOSED Fetus Data [...]
--- OUTSIDE RECORDS SUMMARY | 2025-02-01 00:02 | XMS_ITS | Clinical Summary ---
Author Organization [facility] Address [address] [place] [address] Care Team Providers Care Typewriter Aligner Name Role Phone Erika Hutson ZENIA-WEIR FISHERMAN Primary Care Provider Source Comments [facility],non-owned Affiliates and Associated Physician Practices is amultiple site organization consisting of ambulatory clinics and hospital sitesin [place], [place], [place] and [place]. This disclosure is being madepursuant to the Care Everywhere program and may not contain all information available regarding this patient. Last updated 18.[facility] Allergies Active Allergy Reactions Criticality Noted Date [...] and heating? Not hard at all 01/03/2025 [facility] [place] of Occupat ional Health - Occupational Stress [...] any time in the past 12 m [facility], were you homeless or living in a fpc (including now)? 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 Not on file Not on file Not [...] - 4.940 uIU/mL 01/04/2025 5:00 PM CDT [facility] Blood BLOOD SPECIMEN / Unknown Venipuncture / Unknown 01/04/2025 3:59 PM CDT 01/04/2025 4:15 PM CDT us Ambar Cerda MD LAB - CHEMISTRY ORDERABLES Fi nal Result [facility] [address] [place] [phone], [facility] [phone] * (ABNORMAL) HEMOGLOBIN A1C (01/04/2025 3:59 PM CDT) Hemoglobin A1c 5.7(H) <=5.6 % 01/05/2025 8:37 AM CDT [facility] Estimated Average Glucose 117 mg/dL 01/05/2025 8:37 AM CDT [facility] Comment: HbA1c Interpretation: Normal : < 5.7% Pre-diabetes: 5.7-6.4% Diabetes: Equal to or greater than 6.5% Test results diagnostic of diabetes should be repeated for confirmation. Treatment target values recommended by ADA and other clinical organizations should be used to evaluate metabolic control in patients. Reference: [place] Diabetes Association, Standards of Care in Diabetes [...] LAB - CHEMISTRY ORDERABLES Fi nal Result [address] [phone] [phone] * LIPID PROFILE (01/04/2025 3:59 PM CDT) [facility] Cholesterol Total 141 <200 mg/dL 01/04/2025 4:40 PM [facility] HDL 45 >40 mg/dL 01/04/2025 4:40 PM [facility] Comment: ATP III Classification of HDL Cholesterol: <40 mg/dL: Considered a major risk factor. >60 mg/dL: Considered a negative risk factor. LDL Calculated 85 <100 mg/dL 01/04/2025 4:40 PM T [facility] Comment: ATP III Classification of LDL Cholesterol: <100 mg/dL: Optimal 100 - 129 mg/dL: Near Optimal/Above Optimal 130 - 159 mg/dL: Borderline High 160 - 189 mg/dL: High >190 mg/dL: Very High Triglycerides 53 <150 mg/dL 01/04/2025 4:40 PM T [facility] Comment: ATP III Classification of Triglycerides: <150 mg/dL: Normal 150 - 199 mg/dL: Borderline High 200 - 400 mg/dL: High >500 mg/dL: Very High Blood BLOOD SPECIMEN / Unknown Venipuncture / Unknown 01/04/2025 3:59 PM CDT 01/04/2025 4:16 PM CDT Ambar Cerda MD LAB - CHEMISTRY ORDERABLES Fi nal Result [facility] [address] [place] [phone], [facility] [phone] * (ABNORMAL) CBC W AUTO DIFFERENTIAL (01/03/2025 3:46 AM CDT) WBC 7.3 4.0 - 10.7 x10E9/L 01/03/2025 4:03 AM [facility] RBC Count 3.44(L) 3.90 - 5.20 x10E12/L 01/03/2025 4:03 AM [facility] Hemoglobin 10.1(L) 11.9 - 15.8 g/dL 01/03/2025 4:03 AM [facility] Hematocrit 30.1(L) 34.8 - 46.1 % 01/03/2025 4:03 AM [facility] MCV 87.5 80.0 - 98.0 fL 01/03/2025 4:03 AM [facility] MCH 29.4 26.7 - 33.6 pg 01/03/2025 4:03 AM [facility] MCHC 33.6 31.7 - 36.3 g/dL 01/03/2025 4:03 AM [facility] RDW-CV 12.3 11.3 - 14.8 % 01/03/2025 4:03 AM [facility] Platelet Count 192 150 - 420 x10E9/L 01/03/2025 4:03 AM [facility] MPV 8.7 7.8 - 11.4 fL 01/03/2025 4:03 AM [facility] Neutrophil % 63.7 41.0 - 74.0 % 01/03/2025 4:03 AM [facility] Lymphocyte % 24.6 17.0 - 47.0 % 01/03/2025 4:03 AM T [facility] Monocyte % 9.7 3.0 - 11.0 % 01/03/2025 4:03 AM [facility] Eosinophil % 1.8 0.0 - 7.0 % 01/03/2025 4:03 AM [facility] Basophil % 0.1 0.0 - 1.6 % 01/03/2025 4:03 AM [facility] Immature Granulocytes % 0.1 0.0 - 1.0 % 01/03/2025 4:03 AM [facility] Neutrophil Absolute 4.62 1.60 - 7.50 x10E9/L 01/03/2025 4:03 AM [facility] Lymphocyte Absolute 1.78 1.00 - 4.40 x10E9/L 01/03/2025 4:03 AM [facility] Monocyte Absolute 0.70 0.15 - 1.00 x10E9/L 01/03/2025 4:03 AM [facility] Eosinophil Absolute 0.13 0.00 - 0.60 x10E9/L 01/03/2025 4:03 AM [facility] Basophil Absolute 0.01 0.00 - 0.13 x10E9/L 01/03/2025 4:03 AM [facility] Blood BLOOD SPECIMEN / Unknown Venipuncture / Unknown 01/03/2025 3:46 AM CDT 01/03/2025 3:50 AM CDT us Marilu Portillo MD LAB - HEMATOLOGY ORDERABLES Naheed ulloa Result [facility] [address] [place] [phone], [facility] [phone] * (ABNORMAL) COMPREHENSIVE METABOLIC PANEL (01/03/2025 3:46 AM CDT) BUN 13 7 - 26 mg/dL 01/03/2025 4:21 AM T [facility] Creatinine 0.88 0.56 - 0.96 mg/dL 01/03/2025 4:21 AM [facility] Sodium 140 136 - 145 mmol/L 01/03/2025 4:21 AM [facility] Potassium 4.2 3.5 - 4.5 mmol/L 01/03/2025 4:21 AM [facility] Chloride 108(H) 98 - 107 mmol/L 01/03/2025 4:21 AM [facility] CO2 22 22 - 29 mmol/L 01/03/2025 4:21 AM [facility] Glucose 98 70 - 99 mg/dL 01/03/2025 4:21 AM [facility] Calcium 8.2(L) 8.4 - 10.2 mg/dL 01/03/2025 4:21 AM [facility] Protein Total 6.6 6.0 - 8.3 g/dL 01/03/2025 4:21 AM [facility] Albumin 3.4 3.4 - 5.0 g/dL 01/03/2025 4:21 AM [facility] Bilirubin Total 0.2 0.2 - 1.2 mg/dL 01/03/2025 4:21 AM [facility] Alkaline Phosphatase 96 40 - 150 U/L 01/03/2025 4:21 AM [facility] ALT 16 5 - 55 U/L 01/03/2025 4:21 AM [facility] AST 24 5 - 34 U/L 01/03/2025 4:21 AM [facility] Anion Gap 10 6 - 16 01/03/2025 4:21 AM [facility] BUN/Creatinine Ratio 15 7 - 23 01/03/2025 4:21 AM [facility] Osmolality Calculated 290 275 - 295 mOsm/kg 01/03/2025 4:21 AM [facility] Albumin/Globulin Ratio 1.1 1.1 - 2.3 01/03/2025 4:21 AM [facility] eGFR by CKD-EPI 79(L) >=90 mL/min/1.7 3 m2 01/03/2025 4:21 AM [facility] Blood BLOOD SPECIMEN / Unknown Venipuncture / Unknown 01/03/2025 3:46 AM CDT 01/03/2025 3:50 AM CDT us Marilu Portillo MD LAB - CHEMISTRY ORDERABLES Final Result Performing Organization Address [facility] Co de Phone Number [address] [phone], [facility] [phone] * ALCOHOL ETHYL BLOOD (01/03/2025 3:46 AM CDT) Ethanol (mg/dL) <10 <10 mg/dL 4:21 AM CDT [facility] Ethanol Calculated (g/dL) <0.010 <=0.010 g/dL 01/03/2025 4:21 AM T [facility] Blood BLOOD SPECIMEN / Unknown Venipuncture / Unknown 01/03/2025 3:46 AM CDT 01/03/2025 3:50 AM CDT Narrative [facility] - 01/03/2025 4:21 AM CDT Ethanol Interp <10: None Detected. Depression of ENROBER: >100 mg/dl Potentially Critical: >250 mg/dl Potentially [...] CHEMISTRY ORDERABLES Final Result Performing Organization Address [facility] Co de Phone Number [address] [phone], [facility] [phone] * URINE DRUG SCREEN IMMUNOASSAY (01/03/2025 3:15 AM CDT) Amphetamines Screen Urine Negative Negative: < 1000 ng/mL 01/03/2025 3:45 AM CDT [facility] Barbiturates Screen Urine Negative Negative: < 200 ng/mL 01/03/2025 3:45 AM CDT [facility] Benzodiazepine Screen Urine Negative Negative: < 200 ng/mL 01/03/2025 [facility] Opi[facility] Urine Negative Negative: < 300 ng/mL 01/03/2025 3:45 AM [facility] Cocaine Metabolites Urine Negative Negative: < 300 ng/mL 01/03/2025 3:45 AM [facility] Phencyclidine Screen Urine Negative Negative: < 25 ng/ml 01/03/2025 3:45 AM T [facility] Cannabinoids Screen Urine Negative Negative: <50 ng/mL 01/03/2025 3:45 AM [facility] Methadone Screen Urine Negative Negative: < 300 ng/mL 01/03/2025 3:45 AM [facility] Fentanyl Screen Urine Negative Negative: <1.5 ng/mL 01/03/2025 3:45 AM [facility] Urine URINE / Unknown Collection / Unknown 01/03/2025 3:15 AM CDT 01/03/2025 3:17 AM CDT Narrative [facility] - 01/03/2025 3:45 AM CDT The Urine Toxicology Screening Panel does not screen for Propoxyphene, Meprobamate, Carisoprodol, Trazodone, [id number] medications and/or volatiles (Acetone, Isopropanol, Methanol or Ethylene Glycol). Ethanol, Salicylate, Acetaminophen, Tricyclic Antidepressants and several therapeutic drugs may be individually assayed in serum or plasma specimen. Toxicology testing by the [facility] is an aid to medical diagnosis and treatment of patients. No documented chain of custody was maintained. Results are intended to be used for clinical purposes only. Marilu Portillo MD LAB - URINE CHEMISTRY ORDERABLES Final Result [facility] [address] [place] [address], [place] [phone] from Last 3 Months Insurance MEDICAID - OUT OF [place] [address] [address] [place] [address] MEDICAID Advance Directives * Full Code (Latest Code Status on File) Date Activated Date Inactivated Comments 01/03/2025 10:45 AM 01/11/2025 2:19 PM * Full Code Date Activated Date Inactivated Comments 02/08/2020 2:09 PM 02/13/2020 1:34 PM Care Teams Typewriter Aligner Relationship Specialty Start Date End Date Erika Hutson, GROUP ROOMS COORDINATOR-WEIR FISHERMAN [address] [place] [phone] PCP - General 04/03/19
--- NOTE | 2025-02-01 02:37 | ED_ITS ---
HPI - General Adult General Chief complaint: Headache Stated complaint: brain tumor in eye Time Seen by Provider: 02/01/25 02:23 History of Present Illness HPI narrative: 54-year-old female present to the emergency department for evaluation for bilateral eye pain. Patient states this is chronic but did acutely worsen tonight. Patient reports he does have a history of eye cancer but is no longer following up with physicians due to lack of insurance. Patient was in the emergency department recently and had a head CT that showed no issues with her orbits or with her brain. Patient denies any change in vision but states she has had some floaters. Related Data Home Medications ?Medication ?Instructions ?Recorded ?Confirmed ?Last Taken ?Type paroxetine HCl 20 mg tablet (Paxil) 20 mg PO DAILY 05/11/23 11/11/23 Unknown History zolpidem 10 mg tablet (Ambien) 10 mg PO QHS 05/11/23 11/11/23 Unknown History Allergies Allergy/AdvReac Type Severity Reaction Status Date / Time doxycycline Allergy Intermediate throat Verified 02/01/25 00:00 itching Review of Systems Review of Systems: All systems reviewed & are unremarkable except as noted in HPI and below PMFSH Past Medical History Medical History Tobacco abuse Obese Encounter for screening colonoscopy Insomnia Anxiety MARAH (obstructive sleep apnea) Social History Social History Smoking status: Current every day smoker Substance use type: does not use Living arrangements: with family Gender identity (if verbalized by the patient): Female Exam Narrative: APPEARANCE: Well appearing, no pain, no distress, well-nourished. HEAD: normocephalic, atraumatic. EYES: PERRLA/EOMI, conjunctivae clear. Visual saab intact NOSE: Normal no drainage EARS:TMS clear with good light reflex. THROAT: Pharynx clear, no exudate. NECK: Supple. No adenopathy, no masses. RESPIRATORY: Airway patent, respirations nonlabored. Clear to auscultation bilaterally, no rales, rhonchi, wheezing. CARDIOVASCULAR: Regular rate and rhythm without murmurs rubs or gallops. ABDOMINAL: Soft, nontender, nondistended, normal bowel sounds MUSCULOSKELETAL: Moves all extremities. Strength/ROM intact, No edema, No calf tenderness. NEURO: Alert. Cranial nerves II through XII intact. Grossly intact SKIN: Warm, dry. Normal Color Course Vital Signs Vital signs: Vital Signs Temperature 97.2 F L 02/01/25 00:01 Pulse Rate 104 H 02/01/25 00:01 Respiratory Rate 19 02/01/25 00:01 Blood Pressure 159/99 H 02/01/25 00:01 Pulse Oximetry 99 02/01/25 00:01 Oxygen Delivery Room Air 02/01/25 00:01 Temperature 97.8 F 02/01/25 06:28 Pulse Rate 71 02/01/25 06:28 Respiratory Rate 16 02/01/25 06:28 Blood Pressure 125/64 02/01/25 06:28 Pulse Oximetry 99 02/01/25 06:28 Oxygen Delivery Room Air 02/01/25 00:01 Medical Decision Making MDM Narrative Medical decision making narrative: 54-year-old female presented to emergency department for evaluation for headache. Patient was treated with IV Benadryl, IV Reglan IV fluids and IV Toradol. On re-evaluation patient states she does feel improved. Patient's neuro exam remains normal. Patient has no current change in vision. Patient was comfortable the plan for discharge home. Patient was evaluated emergency department just a few days ago and had negative CT imaging at that time. Differential Diagnosis Differential Diagnosis: Migraine, headache, schizophrenia, anxiety Vital Signs Vital Signs: Vital Signs Temperature 97.2 F L 02/01/25 00:01 Pulse Rate 104 H 02/01/25 00:01 Respiratory Rate 19 02/01/25 00:01 Blood Pressure 159/99 H 02/01/25 00:01 Pulse Oximetry 99 02/01/25 00:01 Oxygen Delivery Room Air 02/01/25 00:01 Temperature 97.8 F 02/01/25 06:28 Pulse Rate 71 02/01/25 06:28 Respiratory Rate 16 02/01/25 06:28 Blood Pressure 125/64 02/01/25 06:28 Pulse Oximetry 99 02/01/25 06:28 Oxygen Delivery Room Air 02/01/25 00:01 Discharge Plan Discharge Clinical Impression: Headache Patient Disposition: Home Condition: Stable Instructions: Antibiotic Form, Acute Headache (ED) Additional Instructions: Have close follow-up with your primary care physician. If you have any worsening symptoms then please call or return to the emergency department. Patient Language: Icelandic Prescriptions: No Action ibuprofen 600 mg tablet 600 mg PO TID PRN (Reason: pain) Qty: 30 0RF hydroxyzine HCl 25 mg tablet 25 mg PO QID PRN (Reason: anxiety) Qty: 20 0RF zolpidem [Ambien] 10 mg tablet 10 mg PO QHS paroxetine HCl [Paxil] 20 mg tablet 20 mg PO DAILY nitrofurantoin monohyd/m-cryst [Macrobid] 100 mg capsule 100 mg PO Q12H 5 Days Qty: 10 0RF Rx Instructions: must administer with a meal/food bacitracin 500 unit/gram ointment 1 applic topical TID Qty: 14 0RF bacitracin 500 unit/gram ointment 1 applic topical TID Qty: 14 0RF Follow-up/Referrals: PHYSICIAN NOT ON STAFF,NONSTAFF [Primary Care Provider] -
[2025-02-01] MEDS: diphenhydrAMINE HCl INJ 50 MG/ML VIAL 25 MG IV PUSH (02:58)
[2025-02-01] MEDS: PROCHLORPERAZINE EDISYLATE 10 MG/2 ML VIAL IV PUSH (02:59)
[2025-02-01] MEDS: KETOROLAC 15 MG/ML VIAL (*BKC) IV PUSH (02:59)
[2025-02-01] MEDS: SODIUM CHLORIDE 0.9% IV 1,000 ML 999 ML IV CONT (03:00)
--- OUTSIDE RECORDS SUMMARY | 2025-02-01 03:02 | XMS_ITS | Clinical Summary ---
Author Organization [facility] Address [address] [place] [address] Care Team Providers Care Online Marketing Coordinator Name Role Phone Erika Hutson ZENIA-MINE LABORER Primary Care Provider Source Comments [facility],non-owned Affiliates and Associated Physician Practices is amultiple site organization consisting of ambulatory clinics and hospital sitesin [place], [place], [place] and [place]. This disclosure is being madepursuant to the Care Everywhere program and may not contain all information available regarding this patient. Last updated 18.[facility] Allergies Active Allergy Reactions Criticality Noted Date [...] and heating? Not hard at all 01/03/2025 [facility] - Occupational Stress [...] any time in the past 12 m [facility], were you homeless or living in a chcf (including now)? 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 Not on file [...] 4.940 uIU/mL 01/04/2025 5:00 PM CDT [facility] Blood BLOOD SPECIMEN / Unknown Venipuncture / Unknown 01/04/2025 3:59 PM CDT 01/04/2025 4:15 PM CDT us Ambar Cerda MD LAB - CHEMISTRY ORDERABLES Fi nal Result [facility] [address] [place] [phone], [facility] [phone] * (ABNORMAL) HEMOGLOBIN A1C (01/04/2025 3:59 PM CDT) Hemoglobin A1c 5.7(H) <=5.6 % 01/05/2025 8:37 AM CDT [facility] Estimated Average Glucose 117 mg/dL 01/05/2025 8:37 AM CDT [facility] Comment: HbA1c Interpretation: Normal : < 5.7% Pre-diabetes: 5.7-6.4% Diabetes: Equal to or greater than 6.5% Test results diagnostic of diabetes should be repeated for confirmation. Treatment target values recommended by ADA and other clinical organizations should be used to evaluate metabolic control in patients. Reference: [place] [employer], Standards of Care in Diabetes [...] LAB - CHEMISTRY ORDERABLES Fi nal Result [address] [phone] [phone] * LIPID PROFILE (01/04/2025 3:59 PM CDT) [facility] Cholesterol Total 141 <200 mg/dL 01/04/2025 4:40 PM [facility] HDL 45 >40 mg/dL 01/04/2025 4:40 PM [facility] Comment: ATP III Classification of HDL Cholesterol: <40 mg/dL: Considered a major risk factor. >60 mg/dL: Considered a negative risk factor. LDL Calculated 85 <100 mg/dL 01/04/2025 4:40 PM T [facility] Comment: ATP III Classification of LDL Cholesterol: <100 mg/dL: Optimal 100 - 129 mg/dL: Near Optimal/Above Optimal 130 - 159 mg/dL: Borderline High 160 - 189 mg/dL: High >190 mg/dL: Very High Triglycerides 53 <150 mg/dL 01/04/2025 4:40 PM T [facility] Comment: ATP III Classification of Triglycerides: <150 mg/dL: Normal 150 - 199 mg/dL: Borderline High 200 - 400 mg/dL: High >500 mg/dL: Very High Blood BLOOD SPECIMEN / Unknown Venipuncture / Unknown 01/04/2025 3:59 PM CDT 01/04/2025 4:16 PM CDT Ambar Cerda MD LAB - CHEMISTRY ORDERABLES Fi nal Result [facility] [address] [place] [phone], [facility] [phone] * (ABNORMAL) CBC W AUTO DIFFERENTIAL (01/03/2025 3:46 AM CDT) WBC 7.3 4.0 - 10.7 x10E9/L 01/03/2025 4:03 AM [facility] RBC Count 3.44(L) 3.90 - 5.20 x10E12/L 01/03/2025 4:03 AM [facility] Hemoglobin 10.1(L) 11.9 - 15.8 g/dL 01/03/2025 4:03 AM [facility] Hematocrit 30.1(L) 34.8 - 46.1 % 01/03/2025 4:03 AM [facility] MCV 87.5 80.0 - 98.0 fL 01/03/2025 4:03 AM [facility] MCH 29.4 26.7 - 33.6 pg 01/03/2025 4:03 AM [facility] MCHC 33.6 31.7 - 36.3 g/dL 01/03/2025 4:03 AM [facility] RDW-CV 12.3 11.3 - 14.8 % 01/03/2025 4:03 AM [facility] Platelet Count 192 150 - 420 x10E9/L 01/03/2025 4:03 AM [facility] MPV 8.7 7.8 - 11.4 fL 01/03/2025 4:03 AM [facility] Neutrophil % 63.7 41.0 - 74.0 % 01/03/2025 4:03 AM [facility] Lymphocyte % 24.6 17.0 - 47.0 % 01/03/2025 4:03 AM T [facility] Monocyte % 9.7 3.0 - 11.0 % 01/03/2025 4:03 AM [facility] Eosinophil % 1.8 0.0 - 7.0 % 01/03/2025 4:03 AM [facility] Basophil % 0.1 0.0 - 1.6 % 01/03/2025 4:03 AM [facility] Immature Granulocytes % 0.1 0.0 - 1.0 % 01/03/2025 4:03 AM [facility] Neutrophil Absolute 4.62 1.60 - 7.50 x10E9/L 01/03/2025 4:03 AM [facility] Lymphocyte Absolute 1.78 1.00 - 4.40 x10E9/L 01/03/2025 4:03 AM [facility] Monocyte Absolute 0.70 0.15 - 1.00 x10E9/L 01/03/2025 4:03 AM [facility] Eosinophil Absolute 0.13 0.00 - 0.60 x10E9/L 01/03/2025 4:03 AM [facility] Basophil Absolute 0.01 0.00 - 0.13 x10E9/L 01/03/2025 4:03 AM [facility] Blood BLOOD SPECIMEN / Unknown Venipuncture / Unknown 01/03/2025 3:46 AM CDT 01/03/2025 3:50 AM CDT us Marilu Portillo MD LAB - HEMATOLOGY ORDERABLES Naheed ulloa Result [facility] [address] [place] [phone], [facility] [phone] * (ABNORMAL) COMPREHENSIVE METABOLIC PANEL (01/03/2025 3:46 AM CDT) BUN 13 7 - 26 mg/dL 01/03/2025 4:21 AM T [facility] Creatinine 0.88 0.56 - 0.96 mg/dL 01/03/2025 4:21 AM [facility] Sodium 140 136 - 145 mmol/L 01/03/2025 4:21 AM [facility] Potassium 4.2 3.5 - 4.5 mmol/L 01/03/2025 4:21 AM [facility] Chloride 108(H) 98 - 107 mmol/L 01/03/2025 4:21 AM [facility] CO2 22 22 - 29 mmol/L 01/03/2025 4:21 AM [facility] Glucose 98 70 - 99 mg/dL 01/03/2025 4:21 AM [facility] Calcium 8.2(L) 8.4 - 10.2 mg/dL 01/03/2025 4:21 AM [facility] Protein Total 6.6 6.0 - 8.3 g/dL 01/03/2025 4:21 AM [facility] Albumin 3.4 3.4 - 5.0 g/dL 01/03/2025 4:21 AM [facility] Bilirubin Total 0.2 0.2 - 1.2 mg/dL 01/03/2025 4:21 AM [facility] Alkaline Phosphatase 96 40 - 150 U/L 01/03/2025 4:21 AM [facility] ALT 16 5 - 55 U/L 01/03/2025 4:21 AM [facility] AST 24 5 - 34 U/L 01/03/2025 4:21 AM [facility] Anion Gap 10 6 - 16 01/03/2025 4:21 AM [facility] BUN/Creatinine Ratio 15 7 - 23 01/03/2025 4:21 AM [facility] Osmolality Calculated 290 275 - 295 mOsm/kg 01/03/2025 4:21 AM [facility] Albumin/Globulin Ratio 1.1 1.1 - 2.3 01/03/2025 4:21 AM [facility] eGFR by CKD-EPI 79(L) >=90 mL/min/1.7 3 m2 01/03/2025 4:21 AM [facility] Blood BLOOD SPECIMEN / Unknown Venipuncture / Unknown 01/03/2025 3:46 AM CDT 01/03/2025 3:50 AM CDT us Marilu Portillo MD LAB - CHEMISTRY ORDERABLES Final Result Performing Organization Address [facility] Co de Phone Number [address] [phone], [facility] [phone] * ALCOHOL ETHYL BLOOD (01/03/2025 3:46 AM CDT) Ethanol (mg/dL) <10 <10 mg/dL 4:21 AM CDT [facility] Ethanol Calculated (g/dL) <0.010 <=0.010 g/dL 01/03/2025 4:21 AM T [facility] Blood BLOOD SPECIMEN / Unknown Venipuncture / Unknown 01/03/2025 3:46 AM CDT 01/03/2025 3:50 AM CDT Narrative [facility] - 01/03/2025 4:21 AM CDT Ethanol Interp <10: None Detected. Depression of MASONRY CONTRACTOR ADMINISTRATOR: >100 mg/dl Potentially Critical: >250 mg/dl Potentially [...] CHEMISTRY ORDERABLES Final Result Performing Organization Address [facility] Co de Phone Number [address] [phone], [facility] [phone] * URINE DRUG SCREEN IMMUNOASSAY (01/03/2025 3:15 AM CDT) Amphetamines Screen Urine Negative Negative: < 1000 ng/mL 01/03/2025 3:45 AM CDT [facility] Barbiturates Screen Urine Negative Negative: < 200 ng/mL 01/03/2025 3:45 AM CDT [facility] Benzodiazepine Screen Urine Negative Negative: < 200 ng/mL [facility]25 [facility] Opi[facility] Urine Negative Negative: < 300 ng/mL 01/03/2025 3:45 AM [facility] Cocaine Metabolites Urine Negative Negative: < 300 ng/mL 01/03/2025 3:45 AM [facility] Phencyclidine Screen Urine Negative Negative: < 25 ng/ml 01/03/2025 3:45 AM T [facility] Cannabinoids Screen Urine Negative Negative: <50 ng/mL 01/03/2025 3:45 AM [facility] Methadone Screen Urine Negative Negative: < 300 ng/mL 01/03/2025 3:45 AM [facility] Fentanyl Screen Urine Negative Negative: <1.5 ng/mL 01/03/2025 3:45 AM [facility] Urine URINE / Unknown Collection / Unknown 01/03/2025 3:15 AM CDT 01/03/2025 3:17 AM CDT Narrative [facility] - 01/03/2025 3:45 AM CDT The Urine Toxicology Screening Panel does not screen for Propoxyphene, Meprobamate, Carisoprodol, Trazodone, [id number] medications and/or volatiles (Acetone, Isopropanol, Methanol or Ethylene Glycol). Ethanol, Salicylate, Acetaminophen, Tricyclic Antidepressants and several therapeutic drugs may be individually assayed in serum or plasma specimen. Toxicology testing by the [facility] is an aid to medical diagnosis and treatment of patients. No documented chain of custody was maintained. Results are intended to be used for clinical purposes only. Marilu Portillo MD LAB - URINE CHEMISTRY ORDERABLES Final Result [facility] [address] [place] [address], [place] [phone] from Last 3 Months Insurance MEDICAID - OUT OF STATE [address] [address] MEDICAID Advance Directives * Full Code (Latest Code Status on File) Date Activated Date Inactivated Comments 01/03/2025 10:45 AM 01/11/2025 2:19 PM * Full Code Date Activated Date Inactivated Comments 02/08/2020 2:09 PM 02/13/2020 1:34 PM Care Teams Online Marketing Coordinator Relationship Specialty Start Date End Date Erika Hutson, TOUCH UP CARVER-MINE LABORER [address] [place] [id number] PCP - General 04/03/19
[2025-02-01 06:28] VITALS: BP 125/64; PULSE 71; RESP 16; TEMP 36.6; O2SAT 99
== END 2025-02-01 06:31 | disposition home or self-care (01) ==
PROVIDERS: Emergency Provider Emergency Medicine
DX: R51.9 Headache, unspecified (principal); G47.00 Insomnia, unspecified; F41.9 Anxiety disorder, unspecified; F17.200 Nicotine dependence, unspecified, uncomplicated; Z79.899 Other long term (current) drug therapy
CPT/HCPCS: 96361; 96374; 96375; 99284; J0780; J1200; J1885; J7030

== ENCOUNTER 2025-02-02 00:24 | Emergency (ER) | payer MEDICAID, SELFPAY ==
--- OUTSIDE RECORDS SUMMARY | 2025-02-02 00:27 | XMS_ITS | Data Portability ---
Author Organization [facility] [place] Address [address] [place] [address] Care Team Providers Care Jewel Lathe Operator Name Role Phone CARLINE SANCHEZ Primary Care Provider [phone] Assessment Encounter Date Assessment Date Assessment LastModified [...] Lab CMP, serum or plasma 2020 021 [email or web address] [facility] ([facility]), [address], [facility] [address], [place], [address], 17:52:21 lipid panel, serum 2020 021 [email or web address] [facility] (Lab), [address], [place], [address], 1 17:52:21 TSH, serum or plasma 2020 021 [facility] (Lab), [address], [place], [address], 1 17:52:21 vitamin D, 25-hydro xy, total, serum 2020 021 [email or web address] [facility] (Lab), [address], [place], [address], 1 17:52:[address] referral - Screenin g Colonosc opyPleas e contact this patient to schedule an appointm ent.If you have any question s, please call [phone]. ank francisca,Kapil braga, Referral 's 2022 023 [facility], [address], [address], [place], [address], 3 17:15:14 Procedures None recorded . Surgeries None recorded . Imaging MAMMO, screenin g, digital, bilatera l 2022 023 [email or web address] [facility], [address], [place], [address], 4 12:12:30 US, thyroid 2020 021 [email or web address] [facility], [address], [place], [address], 1 15:55:28 Medication Orders Valtrex 500 mg tablet 2022 023 [id number], [address] , [place], [place], [id number], 3 14:40:14 Patient TargetsNo targets recorded. Patient InstructionsNo instructions recorded. Reason for Referral Toeing Stockings Referral for Screening for malignant neoplasm of colon Screening Colonoscopy Screening ColonoscopyPlease contact this patient to schedule an appointment.If you have any questions, please call [phone].Thank you,Karrie, Referral's Referring Physician: Magali Bourgeois, ACCOUNT CLERK, Encounter Date: 03/01/2023 Results Created Date Observation Date Name Description Value Unit Range Abnormal Flag Note LastModifiedBy Organization Detail LastModifiedTime 12/10/19 21 12/09/2020 pap, IG Pap test SEE RESULT S BELOW CASE REPOR T: Cytol ogy Gynec ologi rajendra Repor t Case: [id number] Autho gerri grijalva Provi neptali: Clarita [...] ous Intra epith elial Lesio n Elect [facility] tonya d by Naomie Farris, CT on [...] as clini latonia hunt nted. Not Available [facility] (Lab) [address], [place], [address], 12/11/2020 18:06:14 01/16/20 21 01/15/2021 surgi rajendra patho logy study surgical pathology ([facility]) SEE RESULT S BELOW CASE REPOR T: [...] Gross ed by Akash Montes Not Available [facility] (Lab) [address], [place], [address], 01/16/2021 16:07:00 01/16/20 21 01/15/2021 pregn tri test, urine HCG negati ve Not Available [place] [address], [place], [address], 01/15/2021 16:16:47 07/09/20 22 07/09/2022 SURGI RAJENDRA PATHO LOGY surgical pathology SEE RESULT S BELOW CASE REPOR T: Surgi rajendra Patho logy Repor t Case: [id number] Autho gerri grijalva Provi neptali: Teodoro Rm Colle cted: 07/09 1712 ACCOUNT CLERK Order ing Locat ion: [place] [facility] [...] label ed with the patie nt's name, advieog raphi cs and ECC . Recei brandi [...] ed by Maya partida Not Available [facility] [address] [place], [address], 07/10/2022 12:59:45 07/09/20 22 07/09/2022 IMAGE GUIDE D PAP AND HPV REGAR DLESS image guided Pap, HPV regardless of Pap result SEE RESULT S BELOW abnormal CASE REPOR T: Cytol ogy Gynec ologi rajendra Repor t Case: [id number] Autho gerri grijalva Provi neptali: Du corona , Yue Guadalupe cted: 07/09 1709 ACCOUNT CLERK Order ing Locat ion: [place] [facility] [...] Thinp rep Imagi ng Syste m. CLINI ARJENDRA INFOR MATIO N: Menst rual Statu s: [...] patie nt consi derat ions. Not Available [facility] (Lab) [address], [place], [address], 07/15/2022 13:45:26 03/01/20 23 03/01/2023 IMAGE GUIDE [...] as clini [place] hunt nted. Not Available [facility] (Lab) [address], [place], [address], 03/03/2023 20:42:01 10/12/19 24 10/09/2023 MAMMO , scree amarjit, bilat eral No observ ation record ed. [email or web address] [facility] [address], [place], [address], 10/13/2023 12:18:01 11/08/19 24 11/08/2023 MAMMO , diagn ostic , digit al, bilat eral No observ ation record ed. SELMA [facility] [address], [place], [address], 12/02/2023 15:25:00 Result Notes None recorded. Problems Name Problem SNOMED Code Status Onset Date Resolution Date Notes Provider Name and Address Organization Details Recorded Time Clinical finding Completed 201812/09/2020 Presence of (intraute rine) contracep tive device;Re corded Elsewhere : No Locati on: [facility] So urce: EHR Chron ic: N Practic e ID: [id number] Bill able Time: 09:15:[address] [facility] 16:27:43 Emotional state finding Completed 201812/09/2020 Anxiety depressio n;Recorde d Elsewhere : No Locati on: [facility] So urce: EHR Chron ic: N Practic e ID: [id number] Bill able Time: 01:00:[address] [facility] 16:27:46 Insertion of intrauter ine contracep tive device Completed 201812/09/2020 Encounter for insertion of intrauter ine contracep tive device;Re corded Elsewhere : No Locati on: [facility] So urce: EHR Chron ic: N Practic e ID: [id number] Bill able Time: 01:30:[address] [facility] 16:27:47 Education Completed 201812/09/2020 Encounter for other general counselin g and advice on contracep tion;Jean-Paul rded Elsewhere : No Locati on: [facility] So urce: EHR Chron ic: N Practic e ID: [id number] Bill able Time: 01:00:[address] [facility] 16:27:45 Removal of intrauter ine device Completed 201812/09/2020 Encounter for removal of intrauter ine contracep tive device;Pr actice ID: [id number] Diamond amaro, [facility] 16:27:49 Problem Notes None recorded. Procedures Surgical History Date Name Laterality Status Provider Name and Address Organization Details Recorded Time 07/09/20 22 Colposcopy completed Nancy Barney [facility]- [address], [place], [address], [facility] 07/09/2022 14:55:15 07/09/20 22 Date of Last Pap Smear completed Angie Vail [facility] 03/01/2023 14:13:40 01/16/20 21 Colposcopy completed Kika Pardo CNM [address], [place], [address], [facility] 01/15/2021 16:23:20 01/16/20 21 Colposcopy [address] Charity Michelle [facility] 01/15/2021 15:53:19 01/16/20 21 Colposcopy [address] Alyssa Lowry [facility] 07/03/2022 13:18:09 05/10/19 97 section completed Charity Michelle [facility] 01/15/2021 15:55:12 09/13/18 83 Hernia repair w/mesh completed Charity Michelle [facility] 01/15/2021 16:16:24 Imaging Results Imaging Date Name Status LastModified by Organiz ation Details LastModified Time 10/09/2023 MAMMO, screening, bilateral completed [facility] [address] [facility], [place], [address], 10/13/2023 12:18:01 11/08/2023 MAMMO, diagnostic, digital, bilateral completed [facility] [address], [place], [address], 12/02/2023 15:25:00 Procedure Notes None recorded. Medical Equipment None Reported. Allergies Allergen ID Allergen Name Allergen Category Reaction Reaction Severity Criticality Documentation Date Start Date Code Code System Note Provider Name and Address Organization Details Recorded Time 67435 doxycycli ne Not available Not available Not available Not available 08/30/2020 3640 RxNorm Comme nt: [facility]at [facility] [place] [facility]; Not Available [facility] 0 14:24:24 Medications Name Sig [...] Prescrib ed Elsewher e: Yes Loca tion: [facility] odify By: estelle zamudio DateTime : 03/29/20 [...] Updated DateTime 12/09/2020 165.1 cm 40.1 kg/m2 014852.7 6 g 138 mm[Hg] 76 mm[Hg] Diamond Ricks [facility] 1 16:41:34 Date Recorded Body height Provider Name an d Address Organization Details Last Updated DateTime 01/15/2021 165.[address] [facility] 01/14/2021 22:57:29 Date Recorded Body height Body mass index (BMI) Body weight Systolic blood pressure Diastolic blood pressure Provider Name and Address Organization Details Last Updated DateTime 01/15/2021 165.1 cm 40.6 kg/m2 423824.5 4 g 146 mm[Hg] 81 mm[Hg] Charity Michelle [facility] 15:50:25 Date Recorded Body height Body mass index (BMI) Body weight Systolic blood pressure Diastolic blood pressure Provider Name and Address Organization Details Last Updated DateTime 03/01/2023 165.1 cm 40 kg/m2 036222.8 9 g 133 mm[Hg] 83 mm[Hg] Angie Vail [facility] 3 14:13:00 Date Recorded Systolic blood pressure Diastolic blood pressure Provider Name and Address Organization Details Last Updated DateTime 07/09/2022 122 mm[Hg] 78 mm[Hg] Nancy Barney, [facility]- [address], [place], [address], [facility] 07/09/2022 14:53:36 Social History Question Answer Notes LastModified by Organizat ion Details LastModified Time Tobacco Smoking Status Never Smoker Diamond Ricks null, [facility] 12/09/2020 16:33:45 If You Are , What Was Your Level Of Alcohol Consumption Prior To ? None Information not available 01/15/2021 Are You Blind Or Do You Have Difficulty Seeing? No [email or web address] Information n ot available 01/15/2021 What Is Your Level Of Caffeine Consumption? Occasional [email or web address] Information not available 01/15/2021 In The 14 Days Before Symptom Onset, Have You Had Close Contact With A Laboratory-confirm ed COVID-19 While That Case Was Ill? No [email or web address] Information n ot available 01/15/2021 In The 14 Days Before Symptom Onset, Have You Had Close Contact With A Person Who Is Under Investigation For COVID-19 While That Person Was Ill? No Information not available 01/15/2021 Have You Been To An Area Known To Be High Risk For COVID-19? No [email or web address] Information not available 01/15/2021 Are You Deaf Or Do You Have Serious Difficulty Hearing? No [email or web address] Information not available 01/15/2021 What Type Of Diet Are You Following? REGULAR [email or web address] Information n ot available 01/15/2021 Have You Ever Been Counseled For Unhealthy Alcohol Use? No [email or web address] Information not available 01/15/2021 Do You Use Your Seat Belt Or Car Seat Routinely? Yes Information not available 01/15/2021 Do You Have Smoke And Carbon Monoxide Detectors In Your Home? Yes [email or web address] Information not available 01/15/2021 Do You Use Sunscreen Routinely? Yes [email or web address] Information not available 01/15/2021 Has Tobacco Cessation Counseling Been Provided? No Information not available 01/15/2021 Do You Have Difficulty Walking Or Climbing Stairs? No Information not available 03/01/2023 Sex: Unknown Functional Status Question Answer Note LastModified by Organizat ion Details LastModified Time Do you use any illicit or recreational drugs? No [email or web address] Information not available 01/15/2021 Do you or have you ever used any other forms of tobacco or nicotine? No [email or web address] Information not available 01/15/2021 What is your level of alcohol consumption? Occasional [email or web address] Information not available 01/15/2021 Are you able to walk? YESWOREST [email or web address] Information not available 01/15/2021 Are you able [...] anxious, or unable to sleep at night)? [id number] [email or web address] Information not available 01/15/2021 Family History Relationship Description Onset Age of this Age Resolved Age Notes LastModified by Organization Details LastModified Time Maternal Grandmother Malignant tumor of colon Not available 2020 16:33:02 Maternal Grandmother Hypertensive disorder [email or web address] Not available 2020 16:33:24 Maternal Grandmother Diabetes mellitus [email or web address] Not available 2020 16:33:32 Maternal Uncle Malignant tumor of colon [email or web address] Not available 2020 16:33:08 Medical History Condition [...] SNOMED-CT Code Diagnosis ICD10 Code Diagnosis Note [id number] Clarita Ortiz CNM [place] [address] [address] 12/09/2020 16:21:17 12/09/2020 17:18:33 Hypothyroidism 44811326 E03.9 Has not had levels checked in about 1 year. Will check with [facility] health panel. Gynecologi c examination 27645873 Z01.419 Suggested Calcium with Vitamin D 1200-1500m g daily. Patient advised to get an annual flu shot in the fall and she could obtain at [facility] or [facility] take care clinic. Also to obtain [...] respond to this email. Menopausal flushing 1983 94388 N95.1 Will start with checking health panel with [facility]. Did discuss use of paxil. Pt would like to try something to help because she feels this is the cause of her sleep disturbanc e. RTC in 2 weeks to follow up on labs and discuss treatment further. Thyroid nodule 044941844 E04.1 U/S of thyroid ordered. Pt will call to schedule. [address] Kika Pardo [facility] [address],[place] [address] 01/15/2021 15:30:23 01/17/2021 15:38:07 Human papillomavirus deoxyribonucleic acid detected, high risk on cervical specimen 890450459 R87.810 16583 Nancy Barney [facility] [address],[place] [address] 01/15/2021 15:26:47 01/17/2021 15:24:14 78389 Nancy Barney [place] [address],[place] [address] 07/09/2022 13:52:36 07/09/2022 15:07:05 Low grade squamous intraepithelial lesion on cervical Papanicolaou smear 8895298805 9105 R87.612 See procedure notes.Post -procedure instructio ns reviewed with understand ing verbalized .Will contact with results & next steps in plan of care. Counseled on Pap/HPV guidelines /Testing/R esults with understand ing verbalized .All questions answered to patient satisfacti on. Booklet & additional resources regarding pap smear/HPV/ Pap results given. [email or web address] w.cancer.g ov/types/c ervical/un derrejiin g-abnormal -hpv-and-p ap-test-re sults/taee rstanding- cervical-c sabra.pdf [id number] RADHA Castro [place] [address] [address] 03/01/2023 13:59:55 03/02/2023 12:43:01 Gynecologic examination 74461947 Z01.419 Suggested Calcium with Vitamin D 1200-1500m g daily. Patient advised to get an annual flu shot in the fall and she could obtain at [facility] or [facility] care clinic. Also to obtain [...] to papBlood STI declinedma mmogram order givenrefer [facility] colonoscop yFrequent HSV outbreaks. Recently SA again and would like to restart suppressiv e therapy. R/B/A discussed. Rx sentUTD with PCPRTC in 1 year or sooner if needed Screening for malignant neoplasm of breast 681960714 Z12.39 Screening for malignant neoplasm of colon 106535922 Z12.11 Recurrent genital herpes simplex 891381088 A60.00 History of abnormal cervical Papanicolaou smear 970505708 Z87.42 Health Concerns Section Related Observation LastModified by Organization Detai ls LastModified Time None Recorded Concern Status LastModified by Organization Details LastModified Time None Recorded Advance Directives Directive None Recorded Payers Encounter Date Sequence Insurance Name Policy Number Policy Knox Covered Member ID Knox Member ID Guarantor Name 12/09/[address] [facility] [id number] Gay Pereira-Alex mons [id number] Gay Randall Kourtney 01/15/[address] [facility] [id number] Gay Pereira-Alex mons [id number] Gay Randall Kourtney 01/15/[address] [facility] [id number] Gay Pereira-Alex mons [id number] Gay Pereira Kourtney 07/09/[address] [facility] [id number] Gay Pereira-Alex mons [id number] Gay Randall Kourtney 03/01/[address] [facility] [id number] Gay Pereira-Alex mons [id number] Gay [facility] Notes Date Note Type Note Provider Name [...] tsh in over 1 year. Clarita amaro, [facility] 12/09/2020 17:17:19 01/15/2021 text/html normal pap +HPV 16, reviewed pap, pathology, colposcopy, consent signed Kika Pardo CNM [address], [place], [address], [facility] 01/24/2021 08:57:34 07/09/2022 text/html Here today for R /P Colpo with pap smear per recommendations from 2020. Nancy Barney, [facility]- [address], [place], [address], [facility] 07/09/2022 14:56:38 03/01/2023 text/html Annual GYNReport [...] age 42 RADHA Castro [address], [place], [address], [facility] 03/01/2023 17:25:10 OBGyn Episode Ob Episode Information Episode Created Date Number of Fetuses Patient Bloodtype Patient rh Status Prepregnancy Weight lbs Domestic Partner Domestic Partner Phone Father Name Director Alumni Relations Status 12/10/19 21 1 CLOSED Fetus Data [...] Domestic Partner Domestic Partner Phone Father Name Director Alumni Relations Status 12/10/19 21 1 CLOSED Fetus Data [...] Domestic Partner Domestic Partner Phone Father Name Director Alumni Relations Status 12/10/19 21 1 CLOSED Fetus Data [...]
--- OUTSIDE RECORDS SUMMARY | 2025-02-02 00:27 | XMS_ITS | Clinical Summary ---
Author Organization [facility] [employer] Address [address] [place] [address] Care Team Providers Care Housing Quality Standard Inspector Name Role Phone Erika Hutson ZENIA-BRIDGE CONSTRUCTION INSPECTOR Primary Care Provider Source Comments [facility]non-owned Affiliates and Associated Physician Practices is amultiple site organization consisting of ambulatory clinics and hospital sitesin [place], [place], [place] and [place]. This disclosure is being madepursuant to the Care Everywhere program and may not contain all information available regarding this patient. Last updated 18.[facility] Allergies Active Allergy Reactions Criticality Noted Date [...] and heating? Not hard at all 01/03/2025 [facility] Pool of Occupat ional Health - Occupational Stress [...] any time in the past 12 m [facility], were you homeless or living in a half-way (including now)? 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 Not on file [...] Fi nal Result [facility] [address] [place] [phone], [facility] [phone] * (ABNORMAL) HEMOGLOBIN A1C (01/04/2025 3:59 PM CDT) Hemoglobin A1c 5.7(H) <=5.6 % 01/05/2025 8:37 AM CDT [facility] Estimated Average Glucose 117 mg/dL 01/05/2025 8:37 AM CDT [facility] Comment: HbA1c Interpretation: Normal : < 5.7% Pre-diabetes: 5.7-6.4% Diabetes: Equal to or greater than 6.5% Test results diagnostic of diabetes should be repeated for confirmation. Treatment target values recommended by ADA and other clinical organizations should be used to evaluate metabolic control in patients. Reference: [place] Diabetes Association, Standards of Care in Diabetes -2020 In patients 70 years and older consider HbA1c target range of 7.0-7.5% (Reference: Rauol Valderrama et al. JAMDA. 2012) The Sebia assay for the measurement of HbA1c is a National Glycohemoglobin Standardization Program (NGSP) certified method. Blood BLOOD SPECIMEN / Unknown Venipuncture / Unknown 01/04/2025 3:59 PM CDT 01/04/2025 4:15 PM CDT Ambar Cerda MD LAB - CHEMISTRY ORDERABLES Fi nal Result [address] [phone] [phone] * LIPID PROFILE (01/04/2025 3:59 PM CDT) [facility] Cholesterol Total 141 <200 mg/dL 01/04/2025 4:40 PM [facility] HDL 45 >40 mg/dL 01/04/2025 4:40 PM [facility] Comment: ATP III Classification of HDL Cholesterol: [...] Fi nal Result [facility] [address] [place] [phone], [facility] [phone] * (ABNORMAL) CBC W AUTO DIFFERENTIAL (01/03/2025 3:46 AM CDT) WBC 7.3 4.0 - 10.7 x10E9/L 01/03/2025 4:03 AM [facility] RBC Count 3.44(L) 3.90 - 5.20 x10E12/L 01/03/2025 4:03 AM [facility] Hemoglobin 10.1(L) 11.9 - 15.8 g/dL 01/03/2025 4:03 AM [facility] Hematocrit 30.1(L) 34.8 - 46.1 % 01/03/2025 4:03 AM [facility] MCV 87.5 80.0 - 98.0 fL 01/03/2025 4:03 AM [facility] MCH 29.4 26.7 - 33.6 pg 01/03/2025 4:03 AM [facility] MCHC 33.6 31.7 - 36.3 g/dL 01/03/2025 4:03 AM [facility] RDW-CV 12.3 11.3 - 14.8 % 01/03/2025 4:03 AM [facility] Platelet Count 192 150 - 420 x10E9/L 01/03/2025 4:03 AM [facility] MPV 8.7 7.8 - 11.4 fL 01/03/2025 4:03 AM [facility] Neutrophil % 63.7 41.0 - 74.0 % 01/03/2025 4:03 AM [facility] Lymphocyte % 24.6 17.0 - 47.0 % 01/03/2025 4:03 AM T [facility] Monocyte % 9.7 3.0 - 11.0 % 01/03/2025 4:03 AM [facility] Eosinophil % 1.8 0.0 - 7.0 % 01/03/2025 4:03 AM [facility] Basophil % 0.1 0.0 - 1.6 % 01/03/2025 4:03 AM [facility] Immature Granulocytes % 0.1 0.0 - 1.0 % 01/03/2025 4:03 AM [facility] Neutrophil Absolute 4.62 1.60 - 7.50 x10E9/L 01/03/2025 4:03 AM [facility] Lymphocyte Absolute 1.78 1.00 - 4.40 x10E9/L 01/03/2025 4:03 AM [facility] Monocyte Absolute 0.70 0.15 - 1.00 x10E9/L 01/03/2025 4:03 AM [facility] Eosinophil Absolute 0.13 0.00 - 0.60 x10E9/L 01/03/2025 4:03 AM [facility] Basophil Absolute 0.01 0.00 - 0.13 x10E9/L 01/03/2025 4:03 AM [facility] Blood BLOOD SPECIMEN / Unknown Venipuncture / Unknown 01/03/2025 3:46 AM CDT 01/03/2025 3:50 AM CDT us Marilu Portillo MD LAB - HEMATOLOGY ORDERABLES Naheed ulloa Result [facility] [address] [place] [phone], [facility] [phone] * (ABNORMAL) COMPREHENSIVE METABOLIC PANEL (01/03/2025 3:46 AM CDT) BUN 13 7 - 26 mg/dL 01/03/2025 4:21 AM T [facility] Creatinine 0.88 0.56 - 0.96 mg/dL 01/03/2025 4:21 AM [facility] Sodium 140 136 - 145 mmol/L 01/03/2025 4:21 AM [facility] Potassium 4.2 3.5 - 4.5 mmol/L 01/03/2025 4:21 AM [facility] Chloride 108(H) 98 - 107 mmol/L 01/03/2025 4:21 AM [facility] CO2 22 22 - 29 mmol/L 01/03/2025 4:21 AM [facility] Glucose 98 70 - 99 mg/dL 01/03/2025 4:21 AM [facility] Calcium 8.2(L) 8.4 - 10.2 mg/dL 01/03/2025 4:21 AM [facility] Protein Total 6.6 6.0 - 8.3 g/dL 01/03/2025 4:21 AM [facility] Albumin 3.4 3.4 - 5.0 g/dL 01/03/2025 4:21 AM [facility] Bilirubin Total 0.2 0.2 - 1.2 mg/dL 01/03/2025 4:21 AM [facility] Alkaline Phosphatase 96 40 - 150 U/L 01/03/2025 4:21 AM [facility] ALT 16 5 - 55 U/L 01/03/2025 4:21 AM [facility] AST 24 5 - 34 U/L 01/03/2025 4:21 AM [facility] Anion Gap 10 6 - 16 01/03/2025 4:21 AM [facility] BUN/Creatinine Ratio 15 7 - 23 01/03/2025 4:21 AM [facility] Osmolality Calculated 290 275 - 295 mOsm/kg 01/03/2025 4:21 AM [facility] Albumin/Globulin Ratio 1.1 1.1 - 2.3 01/03/2025 4:21 AM [facility] eGFR by CKD-EPI 79(L) >=90 mL/min/1.7 3 m2 01/03/2025 4:21 AM [facility] Blood BLOOD SPECIMEN / Unknown Venipuncture / Unknown 01/03/2025 3:46 AM CDT 01/03/2025 3:50 AM CDT us Marilu Portillo MD LAB - CHEMISTRY ORDERABLES Final Result Performing Organization Address [facility] Co de Phone Number [address] [phone], [facility] [phone] * ALCOHOL ETHYL BLOOD (01/03/2025 3:46 AM [...] Ethanol Interp <10: None Detected. Depression of PERSONAL INJURY LAW SPECIALIST: >100 mg/dl Potentially Critical: >250 mg/dl Potentially [...] CHEMISTRY ORDERABLES Final Result Performing Organization Address [facility] Co de Phone Number [address] [phone], [facility] [phone] * URINE DRUG SCREEN IMMUNOASSAY (01/03/2025 3:15 AM CDT) Amphetamines Screen Urine Negative Negative: < 1000 ng/mL 01/03/2025 3:45 AM CDT [facility] Barbiturates Screen Urine Negative Negative: < 200 ng/mL 01/03/2025 3:45 AM CDT [facility] Benzodiazepine Screen Urine Negative Negative: < 200 ng/mL 01/03/2025 3:[facility] Urine Negative Negative: < 300 ng/mL 01/03/2025 3:45 AM [facility] Cocaine Metabolites Urine Negative Negative: < 300 ng/mL 01/03/2025 3:45 AM [facility] Phencyclidine Screen Urine Negative Negative: < 25 ng/ml 01/03/2025 3:45 AM T [facility] Cannabinoids Screen Urine Negative Negative: <50 ng/mL 01/03/2025 3:45 AM [facility] Methadone Screen Urine Negative Negative: < 300 ng/mL 01/03/2025 3:45 AM [facility] Fentanyl Screen Urine Negative Negative: <1.5 ng/mL 01/03/2025 3:45 AM [facility] Urine URINE / Unknown Collection / Unknown 01/03/2025 3:15 AM CDT 01/03/2025 3:17 AM CDT Narrative [facility] - 01/03/2025 3:45 AM CDT The Urine Toxicology Screening Panel does not screen for Propoxyphene, Meprobamate, Carisoprodol, Trazodone, dzca-xxc-ufrhtod medications and/or volatiles (Acetone, Isopropanol, Methanol or Ethylene Glycol). Ethanol, Salicylate, Acetaminophen, Tricyclic Antidepressants and several therapeutic drugs may be individually assayed in serum or plasma specimen. Toxicology testing by the [facility] is an aid to medical diagnosis and treatment of patients. No documented chain of custody was maintained. Results are intended to be used for clinical purposes only. Marilu Portillo MD LAB - URINE CHEMISTRY ORDERABLES Final Result [facility] [address] [place] [address], [place] [phone] from Last 3 Months Insurance MEDICAID - OUT [place] [address] [address] [place] [address] MEDICAID Advance Directives * Full Code (Latest Code Status on File) Date Activated Date Inactivated Comments 01/03/2025 10:45 AM 01/11/2025 2:19 PM * Full Code Date Activated Date Inactivated Comments 02/08/2020 2:09 PM 02/13/2020 1:34 PM Care Teams Housing Quality Standard Inspector Relationship Specialty Start Date End Date Erika Hutson, OYSTER SHIPPER-BRIDGE CONSTRUCTION INSPECTOR [address] [place] [phone] PCP - General 04/03/19
[2025-02-02 00:34] VITALS: BP 152/91; PULSE 91; RESP 15; TEMP 37; O2SAT 99
[2025-02-02 01:10] LABS: BEDSIDEPREGUCG Negative (Negative)
[2025-02-02 01:26] LABS: Add Urine Microscopic? YES; Appearance Urine Cloudy (Clear); Bacteria Urine 4+ /hpf; Bilirubin Urine Negative (Negative); Blood Urine Negative (Negative); Budding Yeast Urine Present /hpf; Color Urine Yellow (Yellow); Glucose Urine UA Negative (Negative); Hyaline Casts Urine Present /lpf; Ketones Urine Trace mg/dL (Negative); Leukocyte Esterase Ur Negative LEU/UL (Negative); Need Manual Microscopic Reviewed; Nitrate Urine Negative (Negative); Protein Urine 1+ mg/dL (Negative); RBC Urine 0-2 /hpf (0-2); Squamous Epithelial Cell Urine Moderate /hpf (Few); WBC Urine 21-50 /hpf (0-3); pH Urine 5.5 (5.0-9.0)
[2025-02-02 01:30] LABS: Amphetamine Screen Urine Negative (Negative); Barbiturate Screen Urine Negative (Negative); Benzodiazepines Screen Urine Negative (Negative); Cannabinoid Screen Urine Negative (Negative); Cocaine Screen Urine Negative (Negative); Methadone Screen Urine Negative (Negative); Opiate Screen Urine Negative (Negative); Phencyclidine Screen Urine Negative (Negative)
--- OUTSIDE RECORDS SUMMARY | 2025-02-02 01:32 | XMS_ITS | Clinical Summary ---
Author Organization [facility] [employer] Address [address] [facility] [place] [address] Care Team Providers Care Nail Specialist Name Role Phone Erika Hutson ZENIA-TALLIER Primary Care Provider Source Comments [facility] [employer],non-owned Affiliates and Associated Physician Practices is amultiple site organization consisting of ambulatory clinics and hospital sitesin [place], [place], [place] and [place]. This disclosure is being madepursuant to the Care Everywhere program and may not contain all information available regarding this patient. Last updated 18.[facility] [employer] Allergies Active Allergy Reactions Criticality Noted Date [...] and heating? Not hard at all 01/03/2025 [facility] [place] [facility] of Occupat ional Health - Occupational Stress [...] any time in the past 12 m [facility], were you homeless or living in a correction (including now)? 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 Estimated Average Glucose 117 mg/dL 01/05/2025 8:37 AM CDT [facility] Comment: HbA1c Interpretation: Normal : < 5.7% Pre-diabetes: 5.7-6.4% Diabetes: Equal to or greater than 6.5% Test results diagnostic of diabetes should be repeated for confirmation. Treatment target values recommended by ADA and other clinical organizations should be used to evaluate metabolic control in patients. Reference: [place] Diabetes Association, Standards of Care in Diabetes [...] LAB - CHEMISTRY ORDERABLES Fi nal Result [address] [id number] [phone] * LIPID PROFILE (01/04/2025 3:59 PM CDT) [facility] Cholesterol Total 141 <200 mg/dL 01/04/2025 4:40 PM [facility] HDL 45 >40 mg/dL 01/04/2025 4:40 PM [facility] Comment: ATP III Classification of HDL Cholesterol: <40 mg/dL: Considered a major risk factor. >60 mg/dL: Considered a negative risk factor. LDL Calculated 85 <100 mg/dL 01/04/2025 4:40 PM T [facility] Comment: ATP III Classification of LDL Cholesterol: <100 mg/dL: Optimal 100 - 129 mg/dL: Near Optimal/Above Optimal 130 - 159 mg/dL: Borderline High 160 - 189 mg/dL: High >190 mg/dL: Very High Triglycerides 53 <150 mg/dL 01/04/2025 4:40 PM T [facility] Comment: ATP III Classification of Triglycerides: <150 mg/dL: Normal 150 - 199 mg/dL: Borderline High 200 - 400 mg/dL: High >500 mg/dL: Very High Blood BLOOD SPECIMEN / Unknown Venipuncture / Unknown 01/04/2025 3:59 PM CDT 01/04/2025 4:16 PM CDT Ambar Cerda MD LAB - CHEMISTRY ORDERABLES Fi nal Result [facility] [address] [place] [phone], [facility] [phone] * (ABNORMAL) CBC W AUTO DIFFERENTIAL (01/03/2025 3:46 AM CDT) WBC 7.3 4.0 - 10.7 x10E9/L 01/03/2025 4:03 AM [facility] RBC Count 3.44(L) 3.90 - 5.20 x10E12/L 01/03/2025 4:03 AM [facility] Hemoglobin 10.1(L) 11.9 - 15.8 g/dL 01/03/2025 4:03 AM [facility] Hematocrit 30.1(L) 34.8 - 46.1 % 01/03/2025 4:03 AM [facility] MCV 87.5 80.0 - 98.0 fL 01/03/2025 4:03 AM [facility] MCH 29.4 26.7 - 33.6 pg 01/03/2025 4:03 AM [facility] MCHC 33.6 31.7 - 36.3 g/dL 01/03/2025 4:03 AM [facility] RDW-CV 12.3 11.3 - 14.8 % 01/03/2025 4:03 AM [facility] Platelet Count 192 150 - 420 x10E9/L 01/03/2025 4:03 AM [facility] MPV 8.7 7.8 - 11.4 fL 01/03/2025 4:03 AM [facility] Neutrophil % 63.7 41.0 - 74.0 % 01/03/2025 4:03 AM [facility] Lymphocyte % 24.6 17.0 - 47.0 % 01/03/2025 4:03 AM T [facility] Monocyte % 9.7 3.0 - 11.0 % 01/03/2025 4:03 AM [facility] Eosinophil % 1.8 0.0 - 7.0 % 01/03/2025 4:03 AM [facility] Basophil % 0.1 0.0 - 1.6 % 01/03/2025 4:03 AM [facility] Immature Granulocytes % 0.1 0.0 - 1.0 % 01/03/2025 4:03 AM [facility] Neutrophil Absolute 4.62 1.60 - 7.50 x10E9/L 01/03/2025 4:03 AM [facility] Lymphocyte Absolute 1.78 1.00 - 4.40 x10E9/L 01/03/2025 4:03 AM [facility] Monocyte Absolute 0.70 0.15 - 1.00 x10E9/L 01/03/2025 4:03 AM [facility] Eosinophil Absolute 0.13 0.00 - 0.60 x10E9/L 01/03/2025 4:03 AM [facility] Basophil Absolute 0.01 0.00 - 0.13 x10E9/L 01/03/2025 4:03 AM [facility] Blood BLOOD SPECIMEN / Unknown Venipuncture / Unknown 01/03/2025 3:46 AM CDT 01/03/2025 3:50 AM CDT us Marilu Portillo MD LAB - HEMATOLOGY ORDERABLES Naheed ulloa Result [facility] [address] [place] [phone], [facility] [phone] * (ABNORMAL) COMPREHENSIVE METABOLIC PANEL (01/03/2025 3:46 AM CDT) BUN 13 7 - 26 mg/dL 01/03/2025 4:21 AM T [facility] Creatinine 0.88 0.56 - 0.96 mg/dL 01/03/2025 4:21 AM [facility] Sodium 140 136 - 145 mmol/L 01/03/2025 4:21 AM [facility] Potassium 4.2 3.5 - 4.5 mmol/L 01/03/2025 4:21 AM [facility] Chloride 108(H) 98 - 107 mmol/L 01/03/2025 4:21 AM [facility] CO2 22 22 - 29 mmol/L 01/03/2025 4:21 AM [facility] Glucose 98 70 - 99 mg/dL 01/03/2025 4:21 AM [facility] Calcium 8.2(L) 8.4 - 10.2 mg/dL 01/03/2025 4:21 AM [facility] Protein Total 6.6 6.0 - 8.3 g/dL 01/03/2025 4:21 AM [facility] Albumin 3.4 3.4 - 5.0 g/dL 01/03/2025 4:21 AM [facility] Bilirubin Total 0.2 0.2 - 1.2 mg/dL 01/03/2025 4:21 AM [facility] Alkaline Phosphatase 96 40 - 150 U/L 01/03/2025 4:21 AM [facility] ALT 16 5 - 55 U/L 01/03/2025 4:21 AM [facility] AST 24 5 - 34 U/L 01/03/2025 4:21 AM [facility] Anion Gap 10 6 - 16 01/03/2025 4:21 AM [facility] BUN/Creatinine Ratio 15 7 - 23 01/03/2025 4:21 AM [facility] Osmolality Calculated 290 275 - 295 mOsm/kg 01/03/2025 4:21 AM [facility] Albumin/Globulin Ratio 1.1 1.1 - 2.3 01/03/2025 4:21 AM [facility] eGFR by CKD-EPI 79(L) >=90 mL/min/1.7 3 m2 01/03/2025 4:21 AM [facility] Blood BLOOD SPECIMEN / Unknown Venipuncture / Unknown 01/03/2025 3:46 AM CDT 01/03/2025 3:50 AM CDT us Marilu Portillo MD LAB - CHEMISTRY ORDERABLES Final Result Performing Organization Address [facility] Co de Phone Number [address] [address], [facility] [phone] * ALCOHOL ETHYL BLOOD (01/03/2025 3:46 AM CDT) Ethanol (mg/dL) <10 <10 mg/dL 4:21 AM CDT [facility] Ethanol Calculated (g/dL) <0.010 <=0.010 g/dL 01/03/2025 4:21 AM T [facility] Blood BLOOD SPECIMEN / Unknown Venipuncture / Unknown 01/03/2025 3:46 AM CDT 01/03/2025 3:50 AM CDT Narrative [facility] - 01/03/2025 4:21 AM CDT Ethanol Interp <10: None Detected. Depression of MANNEQUIN MAKER: >100 mg/dl Potentially Critical: >250 mg/dl Potentially [...] CHEMISTRY ORDERABLES Final Result Performing Organization Address [facility] Co de Phone Number [address] [phone], [facility] [phone] * URINE DRUG SCREEN IMMUNOASSAY (01/03/2025 3:15 AM CDT) Amphetamines Screen Urine Negative Negative: < 1000 ng/mL 01/03/2025 3:45 AM CDT [facility] Barbiturates Screen Urine Negative Negative: < 200 ng/mL 01/03/2025 3:45 AM CDT [facility] Benzodiazepine Screen Urine Negative Negative: < 200 ng/mL 01/03/2025 3:45 AM [facility]pi[facility] Urine Negative Negative: < 300 ng/mL 01/03/2025 3:45 AM [facility] Cocaine Metabolites Urine Negative Negative: < 300 ng/mL 01/03/2025 3:45 AM [facility] Phencyclidine Screen Urine Negative Negative: < 25 ng/ml 01/03/2025 3:45 AM T [facility] Cannabinoids Screen Urine Negative Negative: <50 ng/mL 01/03/2025 3:45 AM [facility] Methadone Screen Urine Negative Negative: < 300 ng/mL 01/03/2025 3:45 AM [facility] Fentanyl Screen Urine Negative Negative: <1.5 ng/mL 01/03/2025 3:45 AM [facility] Urine URINE / Unknown Collection / Unknown 01/03/2025 3:15 AM CDT 01/03/2025 3:17 AM CDT Narrative [facility] - 01/03/2025 3:45 AM CDT The Urine Toxicology Screening Panel does not screen for Propoxyphene, Meprobamate, Carisoprodol, Trazodone, asgw-vsz-kinknsa medications and/or volatiles (Acetone, Isopropanol, Methanol or Ethylene Glycol). Ethanol, Salicylate, Acetaminophen, Tricyclic Antidepressants and several therapeutic drugs may be individually assayed in serum or plasma specimen. Toxicology testing by the [facility] is an aid to medical diagnosis and treatment of patients. No documented chain of custody was maintained. Results are intended to be used for clinical purposes only. Marilu Portillo MD LAB - URINE CHEMISTRY ORDERABLES Final Result [facility] [address] [place] [address], [place] [phone] from Last 3 Months Insurance MEDICAID - OUT [place] [place] [address] MEDICAID Advance Directives * Full Code (Latest Code Status on File) Date Activated Date Inactivated Comments 01/03/2025 10:45 AM 01/11/2025 2:19 PM * Full Code Date Activated Date Inactivated Comments 02/08/2020 2:09 PM 02/13/2020 1:34 PM Care Teams Nail Specialist Relationship Specialty Start Date End Date Erika Hutson, RN MATERNAL CHILD-TALLIER [address] [place] [phone] PCP - General 04/03/19
--- NOTE | 2025-02-02 01:39 | ED_ITS ---
HPI - Psych General Chief Complaint: Psychiatric Symptoms <Marilu Sullivan PA-C - Last Filed: 02/02/25 17:11> Stated Complaint: sleep psychosis <JUAN R Rios Last Filed: 02/02/25 17:11> Time Seen by Provider: 02/02/25 00:55 <Marilu Sullivan PA-C - Last Filed: 02/02/25 17:11> Source: patient <JUAN R Rios Last Filed: 02/02/25 17:11> Mode of arrival: ambulatory <JUAN R Rios Last Filed: 02/02/25 17:11> Limitations: no limitations <JUAN R Rios Last Filed: 02/02/25 17:11> History of Present Illness HPI Narrative: This is a 54 year old female that presents to the ER for difficulty sleeping. Reports she takes Trazodone for this. She took this tonight and was still not able to sleep. Reports she is hearing voices. Denies any thoughts of harming herself or anyone else. <JUAN R Rios Last Filed: 02/02/25 17:11> Related Data Home Medications: Home Medications ?Medication ?Instructions ?Recorded ?Confirmed ?Last Taken ?Type paroxetine HCl 20 mg tablet (Paxil) 20 mg PO DAILY 05/11/23 11/11/23 Unknown History zolpidem 10 mg tablet (Ambien) 10 mg PO QHS 05/11/23 11/11/23 Unknown History <JUAN R Rios Last Filed: 02/02/25 17:11> Allergies/Adverse Reactions: Allergies Allergy/AdvReac Type Severity Reaction Status Date / Time doxycycline Allergy Intermediate throat Verified 02/02/25 00:25 itching <JUAN R Rios Last Filed: 02/02/25 17:11> Review of Systems 2 Review of Systems: All systems reviewed & are unremarkable except as noted in HPI and below <JUAN R Rios Last Filed: 02/02/25 17:11> PMFSH Past Medical History Medical History: Medical History Tobacco abuse Obese Encounter for screening colonoscopy Insomnia Anxiety MARAH (obstructive sleep apnea) <Marilu Sullivan PA-C - Last Filed: 02/02/25 17:11> Social History Social History: Social History Smoking status: Current every day smoker Substance use type: unknown Living arrangements: with family Gender identity (if verbalized by the patient): Female <Marilu Sullivan PA-C - Last Filed: 02/02/25 17:11> Exam 2 Narrative: GENERAL: Well-appearing, well-nourished, and in no acute distress. HEAD: Normocephalic, atraumatic. EYES: EOMI. ENT: Nares clear, no rhinorrhea or epistaxis. Mucous membranes moist. Oropharynx without tonsillar hypertrophy exudate or other lesions. CHEST: No respiratory distress. HEART: Regular rate EXTREMITIES: Normal range of motion. No edema. SKIN: Warm, dry, no rash. NEURO: No focal deficits. Alert and oriented x3. PSYCH: Normal mood and affect <Marilu Sullivan PA-C - Last Filed: 02/02/25 17:11> Course Course Emergency Course: Care taken over by Dr. Grande at shift change <Marilu Sullivan PA-C - Last Filed: 02/02/25 17:11> Vital Signs Vital signs: Vital Signs Temperature 98.6 F 02/02/25 00:34 Pulse Rate 91 02/02/25 00:34 Respiratory Rate 15 02/02/25 00:34 Blood Pressure 152/91 H 02/02/25 00:34 Pulse Oximetry 99 02/02/25 00:34 Oxygen Delivery Room Air 02/02/25 00:34 Temperature 98.6 F 02/02/25 00:34 Pulse Rate 91 02/02/25 00:34 Respiratory Rate 15 02/02/25 00:34 Blood Pressure 152/91 H 02/02/25 00:34 Pulse Oximetry 99 02/02/25 00:34 Oxygen Delivery Room Air 02/02/25 00:34 <Marilu Sullivan PA-C - Last Filed: 02/02/25 17:11> Vital Signs Temperature 98.6 F 02/02/25 00:34 Pulse Rate 91 02/02/25 00:34 Respiratory Rate 15 02/02/25 00:34 Blood Pressure 152/91 H 02/02/25 00:34 Pulse Oximetry 99 02/02/25 00:34 Oxygen Delivery Room Air 02/02/25 00:34 Temperature 98.6 F 02/02/25 00:34 Pulse Rate 91 02/02/25 00:34 Respiratory Rate 15 02/02/25 00:34 Blood Pressure 152/91 H 02/02/25 00:34 Pulse Oximetry 99 02/02/25 00:34 Oxygen Delivery Room Air 02/02/25 00:34 <Patricia Grande MD - Last Filed: 02/02/25 17:33> MDM - Psych MDM Narrative Medical decision making narrative: Patient signed out to me. Difficult to obtain labs creating delay. She does intermittently wander and at times is hard to redirect but in general will return to her room and listen to music on her phone. She does repeatedly state that she wants another nurse because hers is threatening/mistreating her but nurse has had minimal conversation with patient and nothing has been heard to corroborate this. Normocytic anemia, stable from previous. Concern for urinary tract infection. First dose antibiotic given. test negative. Patient medically cleared for evaluation by psych/crisis team. Patient requesting to leave. She is frequently walking out of her room and attempting to go into other rooms. She keeps saying that this will be all of our last days at work as she has called the governor and this place is getting shut down. Keeps sending /threatening to send emails to governor [place]. She denies auditory hallucinations at this time. States she hasn't been confused. Patient calls the police on staff who have not laid hands on her. They do come to assess. No reports filed. Psych/crisis team comes to evaluate the patient and patient becomes confrontational with member of that team, using threatening language that patient will harm this person, cursing and becoming agitated. Patient not able to be redirected and frequently approaching and crossing into charge nurse/physician/nurse work space, not following commands. Security called and she does return to her room with them but continues to threaten multiple staff members and additional personnel/team members. States she will kill them. Calling people names including refusing to stop using the N word. 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 911 called and local police arrive. Patient will leave with them. Fit for confinement paperwork filled out by myself and patient given discharge instructions that include writtten prescription for antitiobic for UTI that she is encouraged to fill out. <Patricia Grande MD - Last Filed: 02/02/25 17:33> Differential Diagnosis Differential diagnosis: Likely acute psychosis, chronic schizophrenia, drug-induced psychotic disorder, acute anxiety and other (UTI) <Patricia Grande MD - Last Filed: 02/02/25 17:33> Lab Data Attestation: I reviewed the patient's lab results. <Patricia Grande MD - Last Filed: 02/02/25 17:33> Result diagrams: 02/02/25 03:24 02/02/25 03:24 <Marilu Sullivan PA-C - Last Filed: 02/02/25 17:11> Labs: Lab Results 02/02/25 02/02/25 02/02/25 Range/Units 01:08 01:09 03:24 WBC 6.1 (4.5-10.0) K/mm3 RBC 4.13 L (4.2-5.4) M/mm3 Hgb 11.9 L (12.0-15.0) g/dL Hct 36.7 L (37.0-47.0) % MCV 88.9 (80-100) fl MCH 28.8 (26-34) pg MCHC 32.4 (32-36) g/dl RDW 12.6 (11.5-14.5) % Plt Count 219 (150-375) k/mm3 MPV 8.8 (7.4-10.4) fl Immature Gran % (Auto) 0.2 (0-0.5) % Neut % (Auto) 55.4 (45.5-73.1) % Lymph % (Auto) 32.7 (18.3-44.2) % [place] % (Auto) 9.9 H (2.6-8.5) % Eos % (Auto) 1.6 (0-4.4) % Baso % (Auto) 0.2 (0.2-1.2) % Lymph # (Auto) 1.99 (0.9-3.2) K/mm3 [place] # (Auto) 0.6 (0.1-0.6) K/mm3 Eos # (Auto) 0.1 (0-0.3) K/mm3 Baso # (Auto) 0.0 (0.0-0.1) K/mm3 Abs Immat Gran (auto) 0.01 (0.00-0.031) K/mm3 Absolute Neuts (auto) 3.4 (1.3-6.7) K/mm3 Absolute Nucleated RBC 0.000 (0.0-0.012) K/mm3 Nucleated RBC % 0.0 (0.0-0.2) % Sodium 139 (137-145) mmol/L Potassium 4.2 (3.4-5.0) mmol/L Chloride 107 (98-107) mmol/L Carbon Dioxide 21 L (22-30) mmol/L Anion Gap 11 (4-12) mmol/L BUN 13 (7-17) mg/dL Creatinine 0.99 (0.7-1.0) mg/dL Estim Creat Clear Calc 65 ml/min Estimated GFR 59 (59 - ) Glucose 95 (65-110) mg/dL Calcium 9.1 (8.4-10.2) mg/dL Total Bilirubin 0.5 (0.2-1.3) mg/dL AST 35 (14-36) U/L ALT 22 (6-35) U/L Alkaline Phosphatase 92 (38-126) U/L Total Protein 8.0 (6.3-8.2) g/dL Albumin 4.7 (3.5-5.1) g/dL TSH (Reflex) 2.970 (0.465-4.68) uIU/mL Urine Color Yellow (Yellow) Urine Appearance Cloudy H (Clear) Urine pH 5.5 (5.0-9.0) Ur Specific [place] 1.030 (1.001-1.035) Urine Protein 1+ H (Negative) mg/dL Urine Glucose (UA) Negative (Negative) mg/dL Urine Ketones Trace H (Negative) mg/dL Ur Blood (Man) Negative (Negative) Urine Nitrate Negative (Negative) Urine Bilirubin Negative (Negative) Urine Urobilinogen 1.0 (<2.0) mg/dL Add Ur Microanalysis Reviewed Leukocyte Esterase Rfl Negative (Negative) [place]/UL Urine RBC 0-2 (0-2) /hpf Urine WBC 21-50 H (0-3) /hpf Ur Squamous Epith Cells Moderate (Few) /hpf Urine Bacteria 4+ H /hpf Urine Casts 6-10 Hyaline Casts Present (None) /lpf Urine Yeast (Budding) Present H (None) /hpf POC Urine HCG, Qual Negative (Negative) Urine Opiates Screen Negative (Negative) Urine Methadone Screen Negative (Negative) Ur Barbiturates Screen Negative (Negative) Ur Phencyclidine Scrn Negative (Negative) Ur Amphetamine Screen Negative (Negative) U Benzodiazepines Scrn Negative (Negative) Urine Cocaine Screen Negative (Negative) U Cannabinoids Screen Negative (Negative) Ethyl Alcohol < 10 (<10) mg/dL <Marilu Sullivan PA-C - Last Filed: 02/02/25 17:11> Lab Results 02/02/25 02/02/25 02/02/25 Range/Units 01:08 01:09 03:24 WBC 6.1 (4.5-10.0) K/mm3 RBC 4.13 L (4.2-5.4) M/mm3 Hgb 11.9 L (12.0-15.0) g/dL Hct 36.7 L (37.0-47.0) % MCV 88.9 (80-100) fl MCH 28.8 (26-34) pg MCHC 32.4 (32-36) g/dl RDW 12.6 (11.5-14.5) % Plt Count 219 (150-375) k/mm3 MPV 8.8 (7.4-10.4) fl Immature Gran % (Auto) 0.2 (0-0.5) % Neut % (Auto) 55.4 (45.5-73.1) % Lymph % (Auto) 32.7 (18.3-44.2) % [place] % (Auto) 9.9 H (2.6-8.5) % Eos % (Auto) 1.6 (0-4.4) % Baso % (Auto) 0.2 (0.2-1.2) % Lymph # (Auto) 1.99 (0.9-3.2) K/mm3 [place] # (Auto) 0.6 (0.1-0.6) K/mm3 Eos # (Auto) 0.1 (0-0.3) K/mm3 Baso # (Auto) 0.0 (0.0-0.1) K/mm3 Abs Immat Gran (auto) 0.01 (0.00-0.031) K/mm3 Absolute Neuts (auto) 3.4 (1.3-6.7) K/mm3 Absolute Nucleated RBC 0.000 (0.0-0.012) K/mm3 Nucleated RBC % 0.0 (0.0-0.2) % Sodium 139 (137-145) mmol/L Potassium 4.2 (3.4-5.0) mmol/L Chloride 107 (98-107) mmol/L Carbon Dioxide 21 L (22-30) mmol/L Anion Gap 11 (4-12) mmol/L BUN 13 (7-17) mg/dL Creatinine 0.99 (0.7-1.0) mg/dL Estim Creat Clear Calc 65 ml/min Estimated GFR 59 (59 - ) Glucose 95 (65-110) mg/dL Calcium 9.1 (8.4-10.2) mg/dL Total Bilirubin 0.5 (0.2-1.3) mg/dL AST 35 (14-36) U/L ALT 22 (6-35) U/L Alkaline Phosphatase 92 (38-126) U/L Total Protein 8.0 (6.3-8.2) g/dL Albumin 4.7 (3.5-5.1) g/dL TSH (Reflex) 2.970 (0.465-4.68) uIU/mL Urine Color Yellow (Yellow) Urine Appearance Cloudy H (Clear) Urine pH 5.5 (5.0-9.0) Ur Specific [place] 1.030 (1.001-1.035) Urine Protein 1+ H (Negative) mg/dL Urine Glucose (UA) Negative (Negative) mg/dL Urine Ketones Trace H (Negative) mg/dL Ur Blood (Man) Negative (Negative) Urine Nitrate Negative (Negative) Urine Bilirubin Negative (Negative) Urine Urobilinogen 1.0 (<2.0) mg/dL Add Ur Microanalysis Reviewed Leukocyte Esterase Rfl Negative (Negative) [place]/UL Urine RBC 0-2 (0-2) /hpf Urine WBC 21-50 H (0-3) /hpf Ur Squamous Epith Cells Moderate (Few) /hpf Urine Bacteria 4+ H /hpf Urine Casts 6-10 Hyaline Casts Present (None) /lpf Urine Yeast (Budding) Present H (None) /hpf POC Urine HCG, Qual Negative (Negative) Urine Opiates Screen Negative (Negative) Urine Methadone Screen Negative (Negative) Ur Barbiturates Screen Negative (Negative) Ur Phencyclidine Scrn Negative (Negative) Ur Amphetamine Screen Negative (Negative) U Benzodiazepines Scrn Negative (Negative) Urine Cocaine Screen Negative (Negative) U Cannabinoids Screen Negative (Negative) Ethyl Alcohol < 10 (<10) mg/dL <Patricia Grande MD - Last Filed: 02/02/25 17:33> Critical Care Time Critical Care Time Critical Care Time: No <Marilu Sullivan PA-C - Last Filed: 02/02/25 17:11> Discharge Plan Discharge Clinical Impression: Auditory hallucinations, Normocytic anemia Insomnia Qualifiers: Insomnia type: unspecified Qualified Code(s): G47.00 - Insomnia, unspecified UTI (urinary tract infection) Qualifiers: Urinary tract infection type: acute cystitis Hematuria presence: without hematuria Qualified Code(s): N30.00 - Acute cystitis without hematuria <Marilu Sullivan PA-C - Last Filed: 02/02/25 17:11> Patient Disposition: Home <Marilu Sullivan PA-C - Last Filed: 02/02/25 17:11> Condition: Stable <Marilu Sullivan PA-C - Last Filed: 02/02/25 17:11> Instructions: Antibiotic Form, Urinary Tract Infection in Women (DC), Insomnia (ED), Anemia (ED), Hallucinations (ED) <Marilu Sullivan PA-C - Last Filed: 02/02/25 17:11> Additional Instructions: YOu are being given resources for mental health. You have a UTI and received the 1st dose of antibiotic in the emergency department with the rest of the course prescribed. If you do not have a primary care physician the name of one is listed below. <Marilu Sullivan PA-C - Last Filed: 02/02/25 17:11> Patient Language: Kinyarwanda <Marilu Sullivan PA-C - Last Filed: 02/02/25 17:11> Prescriptions: New sulfamethoxazole-trimethoprim [Bactrim DS] 800-160 mg tablet 1 tablet PO Q12H 5 Days Qty: 9 0RF Rx Instructions: received first dose in ED No Action ibuprofen 600 mg tablet 600 mg PO TID PRN (Reason: pain) Qty: 30 0RF hydroxyzine HCl 25 mg tablet 25 mg PO QID PRN (Reason: anxiety) Qty: 20 0RF zolpidem [Ambien] 10 mg tablet 10 mg PO QHS paroxetine HCl [Paxil] 20 mg tablet 20 mg PO DAILY nitrofurantoin monohyd/m-cryst [Macrobid] 100 mg capsule 100 mg PO Q12H 5 Days Qty: 10 0RF Rx Instructions: must administer with a meal/food bacitracin 500 unit/gram ointment 1 applic topical TID Qty: 14 0RF bacitracin 500 unit/gram ointment 1 applic topical TID Qty: 14 0RF <Marilu Sullivan PA-C - Last Filed: 02/02/25 17:11> Follow-up/Referrals: Yusef Balderrama MD [Physician] - PHYSICIAN NOT ON STAFF,NONSTAFF [Primary Care Provider] - <Marilu Sullivan PA-C - Last Filed: 02/02/25 17:11> Stand Alone Forms: Work/School Release IP <Marilu Sullivan PA-C - Last Filed: 02/02/25 17:11> Time of Disposition: 06:49 <Marilu Sullivan PA-C - Last Filed: 02/02/25 17:11> 06:49 <Patricia Grande MD - Last Filed: 02/02/25 17:33>
[2025-02-02 03:29] LABS: Basophils Percent Auto 0.2 % (0.2-1.2); Eosinophils Absolute Auto 0.1 K/mm3 (0-0.3); Eosinophils Percent Auto 1.6 % (0-4.4); Hematocrit 36.7 % (37.0-47.0); Hemoglobin 11.9 g/dL (12.0-15.0); Immature Granulocyte Absolute 0.01 K/mm3 (0.00-0.031); Immature Granulocyte Percent A 0.2 % (0-0.5); Lymphocytes Absolute Auto 1.99 K/mm3 (0.9-3.2); Lymphocytes Percent Auto 32.7 % (18.3-44.2); Mean Corpuscular HGB Conc 32.4 g/dl (32-36); Mean Corpuscular Hemoglobin 28.8 pg (26-34); Mean Corpuscular Volume 88.9 fl (80-100); Mean Platelet Volume 8.8 fl (7.4-10.4); Monocytes Absolute Auto 0.6 K/mm3 (0.1-0.6); Monocytes Percent Auto 9.9 % (2.6-8.5); Neutrophils Absolute Auto 3.4 K/mm3 (1.3-6.7); Neutrophils Percent Auto 55.4 % (45.5-73.1); Platelet Count Result 219 k/mm3 (150-375); Red Blood Count 4.13 M/mm3 (4.2-5.4); Red Cell Distribution Width 12.6 % (11.5-14.5); White Blood Count 6.1 K/mm3 (4.5-10.0)
[2025-02-02 03:40] LABS: Ethanol < 10 mg/dL (<10)
[2025-02-02 03:41] LABS: Alanine Aminotransferase 22 U/L (6-35); Albumin Level 4.7 g/dL (3.5-5.1); Alkaline Phosphatase 92 U/L (38-126); Anion Gap 11 mmol/L (4-12); Aspartate Amino Transferase 35 U/L (14-36); Bilirubin,Total 0.5 mg/dL (0.2-1.3); Blood Urea Nitrogen 13 mg/dL (7-17); Calcium 9.1 mg/dL (8.4-10.2); Carbon Dioxide 21 mmol/L (22-30); Chloride 107 mmol/L (98-107); Estimated CRCL calculation 65 ml/min; Estimated Glomerular Filt Rate 59; Glucose 95 mg/dL (65-110); Potassium 4.2 mmol/L (3.4-5.0); Sodium 139 mmol/L (137-145)
--- NOTE | 2025-02-02 04:15 | PC.NURSE ---
Pt presents to ED c/o sleep psychosis , per pt hasnt slept in 2 weeks and/or had anything to eat in 2 days. Pt provided with sandwich and juice.
[2025-02-02] MEDS: SULFAMETHOXAZOLE/TRIMETHOPRIM 800/160 MG DS TABLET 1 TAB PO (04:35)
--- NOTE | 2025-02-02 04:40 | PC.NURSE ---
Pt called 911 stating everyone needs to get out, you are all in danger
--- NOTE | 2025-02-02 06:18 | PC.NURSE ---
Crisis at bedside, pt states I will kill you, leave . ER staff attempting to redirect pt. Crisis staff states they will have another team come in to evaluate pt.
--- NOTE | 2025-02-02 06:38 | PC.NURSE ---
Pt tells this RN you sit down, LEAVE or I'll kill you, I'm telling you. I will kill you
== END 2025-02-02 06:55 | disposition home or self-care (01) ==
PROVIDERS: Physician Assistant; Emergency Provider Student in an Organized Health Care Education/Training Program
DX: G47.00 Insomnia, unspecified (principal); R44.0 Auditory hallucinations; N30.00 Acute cystitis without hematuria; D64.9 Anemia, unspecified; E66.9 Obesity, unspecified; Z68.38 Body mass index [BMI] 38.0-38.9, adult; G47.33 Obstructive sleep apnea (adult) (pediatric); F41.9 Anxiety disorder, unspecified; F17.200 Nicotine dependence, unspecified, uncomplicated; Z79.899 Other long term (current) drug therapy
CPT/HCPCS: 36415; 80053; 80307; 81001; 81025; 82077; 84443; 85025; 87086; 99284; A9270